=== PATIENT | female | born 1940 | race Caucasian/White ===

== ENCOUNTER 2017-07-22 15:31 | Inpatient (IN) ==
[2017-07-22] MEDS ORDERED: Dextrose Gel 15 GM/37.5 ML TUBE PO PRN ×2 (20:10)
[2017-07-22] MEDS ORDERED: *HR* Dextrose 50 % in Water (Syg) 50 ML SYRINGE IVP PRN (20:10)
[2017-07-22] MEDS ORDERED: D5% in Water 1,000 ML IVC PRN (20:10)
[2017-07-22] MEDS ORDERED: Insulin LISPRO 300 UNITS/3 ML VIAL SQ SCH (20:15)
[2017-07-22] MEDS ORDERED: Naloxone 0.4 MG/ML INJ IVP PRN (20:15)
--- NOTE | 2017-07-22 20:23 | Internal Med History&Physical ---
Date of Encounter: 07/22/17 Time of Encounter: 20:23 Internal Medicine - H&P: HPI Chief complaint: Transfer from [facility] - reportedly LE swelling / CHF ?? History of present illness: Ms. Godwin is a 77 year old female who was a transfer from [facility] with no accompanying paperwork. It was reported that the indication of transfer was for lower extremity swelling consent for CHF. However on interview with patient at bedside, this appeared to be a misdiagnosis. As far as I can appreciate, the patient is a poor historian and perhaps slightly confused. I suspect that she was previously at home with family but had been in a halfway for an unknown period of time. It appears that she likely has a history of diabetes with peripheral neuropathy on examination. She is currently comfortable with stable vitals on 3 L oxygen. It was reported that she has Ckd with prior labs demonstrating mild proteinuria. It also appeared that Dr. Tidwell is her court deputy who have been contacted prior to the transfer. On my assessment at bedside it appears that her main medical issue relates to her bilateral foot infection with cellulitis and fluid filled bullae changes most prominently along her left lower extremity. She also have patchy superficial ulceration with slough. She appears to have a chronic lower extremity edema likely secondary to proteinuria, venous stasis changes and perhaps diabetic foot. On examination she does have a left medial linear scar down her left lower extremity- she is unable to tell me what surgery she had. Due to her poor hx, I am unable to fully confirm her comorbid medical illness, reconcile home medicines at this time of admission. I do not have imaging or laboratory values to refer to as paperwork from [facility] was not available to review at present Past Med Surg Social Fam HX - Past Medical History Medical history: CHF, diabetes, renal disease Additional medical history: blood clots but unsure where - Social History Smoking Status: Never smoker - Family History Father History Unknown: Yes All Systems PM: A 10-system review of systems was performed and is negative for pertinent findings except as documented above in the HPI. Review of systems: ROS 14 point review of systems reviewed as best as possible given presentation. Pertinent positive or negative as per HPI or otherwise reviewed as negative - Constitutional Vitals: Temp Pulse Resp BP Pulse Ox 97.5 F L 91 14 94/39 97 07/22/17 18:39 07/22/17 18:39 07/22/17 18:39 07/22/17 18:39 07/22/17 18:39 Exam: General - AAO x 3 Psych - Appropriate affect/speech. No agitation Eyes - DOMENICA. Eye lids intact. No scleral icterus Neuro - No gross peripheral or central neuro deficits on inspection Heart - Sinus. RRR. S1 and S2 present. No added HS/murmurs appreciated. No elevated JVD appreciated. Lung - Adequate air entry b/l, No crackles/wheezes appreciated GI - Soft, non-tender. No hepatosplenomegaly/ascites. BS+ - No CVA/suprapubic tenderness or palpable bladder distension Skin - +2 bilateral lower extremity edema, erythema consistent with cellulitis, left foot with fluid-filled bullae changes, patchy ulceration with yellow base , peripheral neuropathy and bilateral foot with A sensation, linear scar along the left medial aspect of the left leg - Assessment and plan (1) Leg swelling Current Visit: Yes Status: Acute Assessment and plan: Discussed the case with Dr. Bolden of surgery will evaluate patient in the morning Suspect swelling to be multifactorial relating to proteinuria, venous stasis, lower extremity swelling from CKD. We would check ABIs to rule out concomitant vascular insufficiency Wound care Elevation of leg Possible Manolo bandage in the morning after evaluation by consultants and medical staff (2) Cellulitis Current Visit: Yes Status: Acute Assessment and plan: We will start empiric IV clindamycin to cover for staph and strep Monitor closely on IV therapy Qualifiers: Site of cellulitis of extremity: lower extremity Laterality: left Qualified Code(s): L03.116 - Cellulitis of left lower limb (3) DMII (diabetes mellitus, type 2) Current Visit: Yes Status: Acute Assessment and plan: Check A1c Insulin sliding scale for now Qualifiers: Qualified Code(s): E11.9 - Type 2 diabetes mellitus without complications (4) CKD (chronic kidney disease) Current Visit: Yes Status: Acute Assessment and plan: Consult Dr. Tidwell for medication optimalization Qualifiers: Chronic kidney disease stage: stage 3 (moderate) Qualified Code(s): N18.3 - Chronic kidney disease, stage 3 (moderate) - Time Spent With Patient Total time spent is greater than 50% in coordination of care (as documented) at patient's floor/unit and/or counseling patient:
[2017-07-22] MEDS: Clindamycin 300 MG in D5% in Water 50 ML IVPB SCH (21:05)
[2017-07-22 21:27] LABS: Basophils % 0.3 %; Eosinophils # 0.2 K/mcL (0.0-0.6); Eosinophils % 2.3 %; Hematocrit 37.7 % (35.3-44.9); Hemoglobin 11.3 g/dL (11.5-15.4); Immature Granulocytes % 0.6 % (0-4); Lymphocytes # 1.2 K/mcL (0.6-4.6); Mean Corpuscular Hemoglobin 29.8 pg (28.0-33.3); Mean Corpuscular Volume 99.5 fL (83.0-100.0); Mean Platelet Volume 13.5 fL (9.4-12.4); Monocytes # 0.5 K/mcL (0.0-1.3); Monocytes % 6.8 %; Neutrophils # 5.1 K/mcL (1.6-8.9); Platelet Count 123 K/mcL (140-400); Red Blood Count 3.79 M/mcL (3.82-4.97); Red Cell Distribution Width 15.5 % (11.5-14.5)
[2017-07-22 21:51] LABS: Albumin 2.8 g/dL (3.5-5.7); Albumin/Globulin Ratio 1.2 (1.1-2.2); Bilirubin,Total 0.4 mg/dL (0.3-1.0); Globulin 2.4 g/dL (2.4-3.5); Potassium 5.5 mEq/L (3.5-5.1); Total Protein 5.2 g/dL (6.4-8.9)
[2017-07-22] MEDS ORDERED: Haloperidol Lactate 5 MG/ML VIAL IM ONE (23:30)
[2017-07-22] MEDS: Insulin LISPRO 300 UNITS/3 ML VIAL SQ SCH (23:48)
[2017-07-23 05:33] LABS: Basophils % 0.2 %; Eosinophils # 0.1 K/mcL (0.0-0.6); Hematocrit 35.7 % (35.3-44.9); Hemoglobin 10.5 g/dL (11.5-15.4); Immature Granulocytes % 0.5 % (0-4); Lymphocytes # 1.1 K/mcL (0.6-4.6); Lymphocytes % 18.8 %; Mean Corpuscular HGB Conc 29.4 g/dL (31.6-35.5); Mean Corpuscular Hemoglobin 29.5 pg (28.0-33.3); Mean Corpuscular Volume 100.3 fL (83.0-100.0); Mean Platelet Volume 12.7 fL (9.4-12.4); Monocytes # 0.4 K/mcL (0.0-1.3); Monocytes % 6.9 %; Neutrophils # 4.3 K/mcL (1.6-8.9); Nucleated Red Blood Cells 0.3 /100 WBC (0); Platelet Count 126 K/mcL (140-400); Red Blood Count 3.56 M/mcL (3.82-4.97); Red Cell Distribution Width 15.3 % (11.5-14.5); Segmented Neutrophils % 71.6 %
[2017-07-23 05:46] LABS: Albumin 2.8 g/dL (3.5-5.7); Albumin/Globulin Ratio 1.2 (1.1-2.2); Bilirubin,Direct 0.1 mg/dL (0.0-0.2); Bilirubin,Indirect 0.3 mg/dL (0.0-1.2); Bilirubin,Total 0.4 mg/dL (0.3-1.0); Globulin 2.3 g/dL (2.4-3.5); Magnesium 2.3 mg/dL (1.6-2.6); Potassium 5.1 mEq/L (3.5-5.1); Total Protein 5.1 g/dL (6.4-8.9)
[2017-07-23] MEDS ORDERED: *HR* Enoxaparin 30 MG/0.3 ML SYRINGE SQ SCH (06:00)
[2017-07-23 08:26] LABS: Estimated Average Glucose 217 mg/dl; Hemoglobin A1C 9.2 %
[2017-07-23] MEDS: Insulin LISPRO 300 UNITS/3 ML VIAL SQ SCH ×4 (09:23→23:02)
[2017-07-23] MEDS: Clindamycin 300 MG in D5% in Water 50 ML IVPB SCH ×2 (09:23→18:49)
--- NOTE | 2017-07-23 09:27 | General Surgery Consult Note ---
<Wero Unger - Last Filed: 07/23/17 13:09> Date of Encounter: 07/23/17 Time of Encounter: 06:35 Assessment and Plan (1) Chronic venous stasis dermatitis Current Visit: Yes Status: Acute Patient demonstrates bullous lesions secondary to chronic venous stasis and profound morbid obesity. - Elevate legs above heart level. - Bilateral MANOLO wraps with curlex. (2) Cellulitis Current Visit: Yes Status: Acute Cellulitis of LE b/l. - On clindamycin. Qualifiers: Site of cellulitis of extremity: lower extremity Laterality: left Qualified Code(s): L03.116 - Cellulitis of left lower limb (3) CKD (chronic kidney disease) Current Visit: Yes Status: Acute Creatinine currently at 1.29 (baseline 1.03-1.22). - On IVF. Qualifiers: Chronic kidney disease stage: stage 3 (moderate) Qualified Code(s): N18.3 - Chronic kidney disease, stage 3 (moderate) (4) DMII (diabetes mellitus, type 2) Current Visit: Yes Status: Acute HA1c of 9.2. - On insulin sliding scale. - Qualifiers: Diabetes mellitus director long term care insulin use: unspecified director long term care insulin use status Diabetes mellitus complication status: with unspecified complications Qualified Code(s): E11.8 - Type 2 diabetes mellitus with unspecified complications History of Present Illness Consult date: 07/23/17 Requesting physician: Tori Garner History of present illness: Patient is a 77 Y F with a PMH of DM, HTN, CAD s/p AICD, CABG, gout, OA, and morbid obesity that presents for b/l LE swelling and cellulitis. Patient was transferred from [facility]. She is a poor historian according according to the primary team. When I tried to speak to hear earlier today, patient refused to wake up and continued sleeping. She is resting comfortably with an O2 staturation of 95% on 2 L nasal cannula. It appears that Dr. Tidwell is her hide cleaner. Past Med Surg Social Fam HX - Past Medical History Medical history: CHF, diabetes, renal disease Additional medical history: blood clots but unsure where - Social History Smoking Status: Never smoker - Family History Father History Unknown: Yes Medications and Allergies Apixaban [Eliquis] 2.5 mg PO BID 07/23/17 [History] Ascorbate Calcium [Vitamin C] 500 mg PO DAILY 07/23/17 [History] Aspirin Enteric Coated [Aspirin EC] 81 mg PO DAILY 07/23/17 [History] Carbidopa/Levodopa [Carbidopa-Levo 25-100 mg Odt] 1 tab PO QID 07/23/17 [History ] Furosemide [Lasix] 40 mg PO BID 07/23/17 [History] Insulin ASPART [Novolog] 2 - 15 unit SQ TIDWM 07/23/17 [History] Insulin Glargine,Hum.rec.anlog [Lantus Solostar] 45 unit SQ HS 07/23/17 [History ] Ipratropium/Albuterol Neb [Duoneb] 3 ml IH Q6HR PRN 07/23/17 [History] Levothyroxine [Synthroid] 112 mcg PO 0630 07/23/17 [History] Lovastatin 40 mg PO BID 07/23/17 [History] Metoprolol [Lopressor] 25 mg PO BID 07/23/17 [History] Polyethylene Glycol 3350 [MiraLAX] 17 gm PO DAILY 07/23/17 [History] Polyvinyl Alcohol [Artificial Tears] 2 drop OP BID PRN 07/23/17 [History] Potassium Chloride [K-Tab ER] 10 meq PO DAILY 07/23/17 [History] 3 Allergy/AdvReac Type Severity Reaction Status Date / Time No Known Allergies Allergy Verified 07/23/17 00:19 Review of Systems ROS unobtainable: other (Patient refused to wake up; poor historian. ) All systems PM: The remainder of the systems were reviewed and are negative General Surgery Exam Initial Vital Signs Temp Pulse Resp BP Pulse Ox 97.5 F L 91 14 94/39 97 07/22/17 18:39 07/22/17 18:39 07/22/17 18:39 07/22/17 18:39 07/22/17 18:39 - General physical appearance no distress, obese - Respiratory normal expansion, normal respiratory effort, clear to percussion, clear to auscultation - Cardiovascular Cardiovascular exam: Present: RRR, 15, 16 - Expanded Cardiovascular Exam Peripheral pulses: 1+: Posterior Tibialis (L), Posterior Tibialis (R), Dorsalis Pedis (L) PM, Dorsalis Pedis (R) PM, 2+: Radial (L), Radial (R) - Abdomen Abdomen general surgery: Present: bowel sounds present, soft, non tender. Absent: guarding, rebound - Psychiatric Psychiatric general surgery: Present: other (Somnolent. ) - Additional Findings Extremity: Patient has a 3" x 2" bullous lesion of the LLE with, +2 B/L pitting edema of the LE, erythema of LE b/l. Exam Initial Vital Signs Temp Pulse Resp BP Pulse Ox 97.5 F L 91 14 94/39 97 07/22/17 18:39 07/22/17 18:39 07/22/17 18:39 07/22/17 18:39 07/22/17 18:39 Results - Labs 07/23/17 05:09 07/23/17 05:09 Abnormal lab results RBC 3.56 M/mcL (3.82-4.97) L 07/23/17 05:09 Hgb 10.5 g/dL (11.5-15.4) L 07/23/17 05:09 MCV 100.3 fL (83.0-100.0) H 07/23/17 05:09 MCHC 29.4 g/dL (31.6-35.5) L 07/23/17 05:09 RDW 15.3 % (11.5-14.5) H 07/23/17 05:09 Plt Count 126 K/mcL (140-400) L 07/23/17 05:09 MPV 12.7 fL (9.4-12.4) H 07/23/17 05:09 Nucleated RBCs/100 WBC 0.3 /100 WBC (0) H 07/23/17 05:09 Carbon Dioxide 35 mEq/L (23-29) H 07/23/17 05:09 BUN 124 mg/dL (8-23) H 07/23/17 05:09 Creatinine 1.29 mg/dL (0.60-1.20) H 07/23/17 05:09 Est GFR ( Amer) 49 (> 60) L 07/23/17 05:09 Est GFR (Non-Af Amer) 40 (> 60) L 07/23/17 05:09 BUN/Creatinine Ratio 96 (6-26) H 07/23/17 05:09 Glucose 193 mg/dL (70-105) H 07/23/17 05:09 Hemoglobin A1c 9.2 % (-5.6) H 07/23/17 05:09 Calculated Osmolality 345 (280-300) H 07/23/17 05:09 AST 59 Units/L (13-39) H 07/23/17 05:09 Alkaline Phosphatase 443 Units/L (34-104) H 07/23/17 05:09 Serum Total Protein 5.1 g/dL (6.4-8.9) L 07/23/17 05:09 Albumin 2.8 g/dL (3.5-5.7) L 07/23/17 05:09 Globulin 2.3 g/dL (2.4-3.5) L 07/23/17 05:09 Diabetes panel 07/22/17 07/23/17 07/23/17 Range/Units 21:02 05:09 05:09 Sodium 146 H 145 (136-145) mEq/L Potassium 5.5 H 5.1 (3.5-5.1) mEq/L Chloride 108 H 106 (98-107) mEq/L Carbon Dioxide 33 H 35 H (23-29) mEq/L BUN 128 H 124 H (8-23) mg/dL Creatinine 1.39 H 1.29 H (0.60-1.20) mg/dL Glucose 232 H 193 H (70-105) mg/dL Hemoglobin A1c 9.2 H ( - 5.6) % Calcium 9.0 9.0 (8.6-10.3) mg/dL AST 78 H 59 H (13-39) Units/L ALT 18 20 (7-52) Units/L Alkaline Phosphatase 469 H 443 H (34-104) Units/L Albumin 2.8 L 2.8 L (3.5-5.7) g/dL Calcium panel 07/22/17 07/23/17 Range/Units 21:02 05:09 Calcium 9.0 9.0 (8.6-10.3) mg/dL Albumin 2.8 L 2.8 L (3.5-5.7) g/dL Pituitary panel 07/22/17 07/23/17 Range/Units 21:02 05:09 Sodium 146 H 145 (136-145) mEq/L Potassium 5.5 H 5.1 (3.5-5.1) mEq/L Chloride 108 H 106 (98-107) mEq/L Carbon Dioxide 33 H 35 H (23-29) mEq/L BUN 128 H 124 H (8-23) mg/dL Creatinine 1.39 H 1.29 H (0.60-1.20) mg/dL Glucose 232 H 193 H (70-105) mg/dL Calcium 9.0 9.0 (8.6-10.3) mg/dL Adrenal panel 07/22/17 07/23/17 Range/Units 21:02 05:09 Sodium 146 H 145 (136-145) mEq/L Potassium 5.5 H 5.1 (3.5-5.1) mEq/L Chloride 108 H 106 (98-107) mEq/L Carbon Dioxide 33 H 35 H (23-29) mEq/L BUN 128 H 124 H (8-23) mg/dL Creatinine 1.39 H 1.29 H (0.60-1.20) mg/dL Glucose 232 H 193 H (70-105) mg/dL Calcium 9.0 9.0 (8.6-10.3) mg/dL Total Bilirubin 0.4 0.4 (0.3-1.0) mg/dL AST 78 H 59 H (13-39) Units/L ALT 18 20 (7-52) Units/L Alkaline Phosphatase 469 H 443 H (34-104) Units/L Albumin 2.8 L 2.8 L (3.5-5.7) g/dL All other labs normal. Consult Discharge Plan - Plan Referrals: Yaa Sanderson, SMELTER LINER [Primary Care Provider] - <Jacky Bolden - Last Filed: 07/23/17 14:08> Date of Encounter: 07/23/17 Review of Systems All systems PM: The remainder of the systems were reviewed and are negative General Surgery Exam Initial Vital Signs Temp Pulse Resp BP Pulse Ox 97.5 F L 91 14 94/39 97 07/22/17 18:39 07/22/17 18:39 07/22/17 18:39 07/22/17 18:39 07/22/17 18:39 Exam Initial Vital Signs Temp Pulse Resp BP Pulse Ox 97.5 F L 91 14 94/39 97 07/22/17 18:39 07/22/17 18:39 07/22/17 18:39 07/22/17 18:39 07/22/17 18:39 Results - Labs 07/23/17 05:09 07/23/17 05:09 Abnormal lab results RBC 3.56 M/mcL (3.82-4.97) L 07/23/17 05:09 Hgb 10.5 g/dL (11.5-15.4) L 07/23/17 05:09 MCV 100.3 fL (83.0-100.0) H 07/23/17 05:09 MCHC 29.4 g/dL (31.6-35.5) L 07/23/17 05:09 RDW 15.3 % (11.5-14.5) H 07/23/17 05:09 Plt Count 126 K/mcL (140-400) L 07/23/17 05:09 MPV 12.7 fL (9.4-12.4) H 07/23/17 05:09 Nucleated RBCs/100 WBC 0.3 /100 WBC (0) H 07/23/17 05:09 Carbon Dioxide 35 mEq/L (23-29) H 07/23/17 05:09 BUN 124 mg/dL (8-23) H 07/23/17 05:09 Creatinine 1.29 mg/dL (0.60-1.20) H 07/23/17 05:09 Est GFR ( Amer) 49 (> 60) L 07/23/17 05:09 Est GFR (Non-Af Amer) 40 (> 60) L 07/23/17 05:09 BUN/Creatinine Ratio 96 (6-26) H 07/23/17 05:09 Glucose 193 mg/dL (70-105) H 07/23/17 05:09 Hemoglobin A1c 9.2 % (-5.6) H 07/23/17 05:09 Calculated Osmolality 345 (280-300) H 07/23/17 05:09 AST 59 Units/L (13-39) H 07/23/17 05:09 Alkaline Phosphatase 443 Units/L (34-104) H 07/23/17 05:09 Serum Total Protein 5.1 g/dL (6.4-8.9) L 07/23/17 05:09 Albumin 2.8 g/dL (3.5-5.7) L 07/23/17 05:09 Globulin 2.3 g/dL (2.4-3.5) L 07/23/17 05:09 Diabetes panel 07/22/17 07/23/17 07/23/17 Range/Units 21:02 05:09 05:09 Sodium 146 H 145 (136-145) mEq/L Potassium 5.5 H 5.1 (3.5-5.1) mEq/L Chloride 108 H 106 (98-107) mEq/L Carbon Dioxide 33 H 35 H (23-29) mEq/L BUN 128 H 124 H (8-23) mg/dL Creatinine 1.39 H 1.29 H (0.60-1.20) mg/dL Glucose 232 H 193 H (70-105) mg/dL Hemoglobin A1c 9.2 H ( - 5.6) % Calcium 9.0 9.0 (8.6-10.3) mg/dL AST 78 H 59 H (13-39) Units/L ALT 18 20 (7-52) Units/L Alkaline Phosphatase 469 H 443 H (34-104) Units/L Albumin 2.8 L 2.8 L (3.5-5.7) g/dL Calcium panel 07/22/17 07/23/17 Range/Units 21:02 05:09 Calcium 9.0 9.0 (8.6-10.3) mg/dL Albumin 2.8 L 2.8 L (3.5-5.7) g/dL Pituitary panel 07/22/17 07/23/17 Range/Units 21:02 05:09 Sodium 146 H 145 (136-145) mEq/L Potassium 5.5 H 5.1 (3.5-5.1) mEq/L Chloride 108 H 106 (98-107) mEq/L Carbon Dioxide 33 H 35 H (23-29) mEq/L BUN 128 H 124 H (8-23) mg/dL Creatinine 1.39 H 1.29 H (0.60-1.20) mg/dL Glucose 232 H 193 H (70-105) mg/dL Calcium 9.0 9.0 (8.6-10.3) mg/dL Adrenal panel 07/22/17 07/23/17 Range/Units 21:02 05:09 Sodium 146 H 145 (136-145) mEq/L Potassium 5.5 H 5.1 (3.5-5.1) mEq/L Chloride 108 H 106 (98-107) mEq/L Carbon Dioxide 33 H 35 H (23-29) mEq/L BUN 128 H 124 H (8-23) mg/dL Creatinine 1.39 H 1.29 H (0.60-1.20) mg/dL Glucose 232 H 193 H (70-105) mg/dL Calcium 9.0 9.0 (8.6-10.3) mg/dL Total Bilirubin 0.4 0.4 (0.3-1.0) mg/dL AST 78 H 59 H (13-39) Units/L ALT 18 20 (7-52) Units/L Alkaline Phosphatase 469 H 443 H (34-104) Units/L Albumin 2.8 L 2.8 L (3.5-5.7) g/dL All other labs normal. - Attending Attestation I examined this patient and my medical decision-making was reviewed with the Resident Physician. I agree with the documented findings, disposition and treatment plan as described except to the extent set forth below. The patient is seen and evaluated with resident. She has profound morbid obesity and chronic venous hypertension resulting in hemosiderin deposition and dermatosclerosis and both lower extremities. This is also cause the bullous changes on her left lower extremity. She will respond to leg elevation and compression therapy. We will start with Manolo wraps on both lower extremities and aggressive leg elevation. I would like to transition to Unna boots with extrinsic compression in the coming days. Jacky Bolden MD FACS
--- NOTE | 2017-07-23 10:17 | Nephrology Consult Note ---
Date of Encounter: 07/23/17 Time of Encounter: 10:09 Assessment and Plan (1) CKD (chronic kidney disease) Current Visit: Yes Status: Chronic Is a patient of Dr. Finley in office for CKD 3. BUN elevated, NS ordered for gentle hydration. Scr 1.29 GFR 40, both at baseline. Qualifiers: Chronic kidney disease stage: stage 3 (moderate) Qualified Code(s): N18.3 - Chronic kidney disease, stage 3 (moderate) (2) Cellulitis Current Visit: Yes Status: Acute Per primary team. Qualifiers: Site of cellulitis: extremity Site of cellulitis of extremity: lower extremity Laterality: unspecified laterality Qualified Code(s): L03.119 - Cellulitis of unspecified part of limb (3) Chronic venous stasis dermatitis Current Visit: Yes Status: Chronic Per primary/surgery team. (4) DMII (diabetes mellitus, type 2) Current Visit: Yes Status: Chronic Per primary team. Qualifiers: Diabetes mellitus group home insulin use: with intermodal dispatcher use Diabetes mellitus complication status: with kidney complications Diabetes mellitus complication detail: with chronic kidney disease Chronic kidney disease stage : stage 3 (moderate) Qualified Code(s): E11.22 - Type 2 diabetes mellitus with diabetic chronic kidney disease; N18.3 - Chronic kidney disease, stage 3 ( moderate); Z79.4 - residential (current) use of insulin History of Present Illness - Reason for Consult Consult date: 07/23/17 Acute Kidney Injury - Chief Complaint CHF - History of Present Illness Ms Godwin is a 77 year old female that was transferred from another facility apparently without paperwork for CHF exacerbation. Unsure if she was having difficulty in breathing or fluid overload? Other PMH: of DM, HTN, CAD s/ p AICD, CABG, gout, OA, morbid obesity. Upon examination there is no shortness of breath. Noted are large bullous wounds to lower extremities which surgery has been consulted for. Patient appears very confused, and is poor historian. Per nursing staff she was very agitated last night and did receive a dose of IV Haldol. Patient is known to Dr. Finley as she is seen for CKD 3. BUN is extremely elevated at 128, which is new for her. GFR and Scr appear at baseline. ROS and past history unable to obtain due to mentation and were collected from old records. No obvious signs of bleeding or chronic steroid use which could contribute to elevated BUN. Pt does not appear dehydrated with examination. Past Med Surg Social Fam HX - Past Medical History Medical history: CHF, diabetes, renal disease Additional medical history: blood clots but unsure where - Social History Smoking Status: Never smoker - Family History Father History Unknown: Yes Medications and Allergies Apixaban [Eliquis] 2.5 mg PO BID 07/23/17 [History] Ascorbate Calcium [Vitamin C] 500 mg PO DAILY 07/23/17 [History] Aspirin Enteric Coated [Aspirin EC] 81 mg PO DAILY 07/23/17 [History] Carbidopa/Levodopa [Carbidopa-Levo 25-100 mg Odt] 1 tab PO QID 07/23/17 [History ] Furosemide [Lasix] 40 mg PO BID 07/23/17 [History] Insulin ASPART [Novolog] 2 - 15 unit SQ TIDWM 07/23/17 [History] Insulin Glargine,Hum.rec.anlog [Lantus Solostar] 45 unit SQ HS 07/23/17 [History ] Ipratropium/Albuterol Neb [Duoneb] 3 ml IH Q6HR PRN 07/23/17 [History] Levothyroxine [Synthroid] 112 mcg PO 0630 07/23/17 [History] Lovastatin 40 mg PO BID 07/23/17 [History] Metoprolol [Lopressor] 25 mg PO BID 07/23/17 [History] Polyethylene Glycol 3350 [MiraLAX] 17 gm PO DAILY 07/23/17 [History] Polyvinyl Alcohol [Artificial Tears] 2 drop OP BID PRN 07/23/17 [History] Potassium Chloride [K-Tab ER] 10 meq PO DAILY 07/23/17 [History] 3 Allergy/AdvReac Type Severity Reaction Status Date / Time No Known Allergies Allergy Verified 07/23/17 00:19 Review of Systems ROS unobtainable: due to mental status Exam - Vital Signs Vital signs: Initial Vital Signs Temp Pulse Resp BP Pulse Ox 97.5 F L 91 14 94/39 97 07/22/17 18:39 07/22/17 18:39 07/22/17 18:39 07/22/17 18:39 07/22/17 18:39 Vital Signs - Last 8 Hours Temp Pulse Resp BP Pulse Ox 07/23/17 07:27 97.6 F 94 17 105/50 99 07/23/17 04:37 97.6 F 88 15 135/83 95 Intake and Output 07/22/17 07/23/17 07/23/17 23:59 07:59 15:59 Intake Total 312 / 312 Output Total 1300 / 1300 Balance 312 / 312 -1300 / -1300 Intake: IV Fluids Cleocin 300 MG In Dextrose 5% 50 ML @ 50 mls/hr IVPB Q8HR [facility] Rx#:[id number] Oral Other 250 / 250 Output: Catheter 1300 / 1300 Other: Weight 133.9 kg 134.3 kg Blood Glucose* 240 181 Patient Weight 07/23/17 23:59 Weight 134.3 kg - General Appearance General appearance: obese, frail EENT: ATNC, hearing intact, vision intact Neck: supple Cardiology: edema (Trace BLE), normal S1, normal S2 Gastrointestinal: normoactive bowel sounds, no tenderness, no guarding Integumentary: erythema (Bilat lower extremities large fluid filled blisters noted.) Neurologic: confused, disoriented Results - Lab Results 07/23/17 05:09 07/23/17 05:09 Most recent lab results Calcium 9.0 mg/dL (8.6-10.3) 07/23/17 05:09 Magnesium 2.3 mg/dL (1.6-2.6) 07/23/17 05:09 Consult Discharge Plan - Plan Referrals: Yaa Sanderson, SUPERVISOR EVAPORATOR [Primary Care Provider] -
[2017-07-23] MEDS ORDERED: 0.9 % Sodium Chloride 1,000 ML IVC SCH (10:30)
[2017-07-23] MEDS ORDERED: Perflutren Lipid Microsphere 1.3 ML in 0.9 % Sodium Chloride 8.7 ML IVP ONE (12:35)
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
[2017-07-23] MEDS ORDERED: Ipratropium/Albuterol Neb 3 ML IH PRN (14:59)
[2017-07-23] MEDS: Carbidopa/Levodopa 25/100 TABLET PO SCH ×2 (17:47→23:04)
[2017-07-23] MEDS: Apixaban 2.5 MG TABLET PO SCH (23:04)
[2017-07-24] MEDS: Clindamycin 300 MG in D5% in Water 50 ML IVPB SCH (01:27)
[2017-07-24 05:59] LABS: Basophils % 0.4 %; Red Cell Distribution Width 15.4 % (11.5-14.5)
[2017-07-24] MEDS ORDERED: *HR* Enoxaparin 40 MG/0.4 ML SYRINGE SQ SCH (06:00)
[2017-07-24 06:01] LABS: Eosinophils # 0.1 K/mcL (0.0-0.6); Eosinophils % 1.4 %; Hematocrit 36.5 % (35.3-44.9); Hemoglobin 10.9 g/dL (11.5-15.4); Immature Granulocytes % 0.6 % (0-4); Lymphocytes # 1.3 K/mcL (0.6-4.6); Lymphocytes % 17.2 %; Mean Corpuscular HGB Conc 29.9 g/dL (31.6-35.5); Mean Corpuscular Hemoglobin 29.9 pg (28.0-33.3); Mean Corpuscular Volume 100.3 fL (83.0-100.0); Mean Platelet Volume 12.9 fL (9.4-12.4); Monocytes # 0.6 K/mcL (0.0-1.3); Monocytes % 7.6 %; Neutrophils # 5.7 K/mcL (1.6-8.9); Platelet Count 129 K/mcL (140-400); Red Blood Count 3.64 M/mcL (3.82-4.97); Segmented Neutrophils % 72.8 %
[2017-07-24 06:44] LABS: Hypochromasia Present (Not Present); Platelet Estimate Slight Decrease (Normal)
[2017-07-24 07:14] LABS: Albumin 3.1 g/dL (3.5-5.7); Albumin/Globulin Ratio 1.5 (1.1-2.2); Bilirubin,Direct 0.2 mg/dL (0.0-0.2); Bilirubin,Indirect 0.3 mg/dL (0.0-1.2); Bilirubin,Total 0.5 mg/dL (0.3-1.0); Calcium 8.7 mg/dL (8.6-10.3); Globulin 2.1 g/dL (2.4-3.5); Magnesium 2.3 mg/dL (1.6-2.6); Potassium 5.1 mEq/L (3.5-5.1); Total Protein 5.2 g/dL (6.4-8.9)
--- NOTE | 2017-07-24 09:31 | General Surgery Progress Note ---
<Wero Unger - Last Filed: 07/24/17 09:26> Date of Encounter: 07/24/17 Time of Encounter: 06:20 - Assessment and Plan (1) Chronic venous stasis dermatitis Current Visit: Yes Status: Chronic Patient demonstrates bullous lesions secondary to chronic venous stasis and profound morbid obesity. - Elevate legs above heart level. - Bilateral DEAN wraps with curlex. - Consult to Wound Care: left message for Esperanza Vernon instructing to put on unna boots with external compression. Surgery will sign off on this patient. She is to have a follow-up visit at the wound care clinic on 07/27/[address] Bolden. (2) Cellulitis Current Visit: Yes Status: Acute Cellulitis of LE b/l. - On day #3 clindamycin. Qualifiers: Site of cellulitis: extremity Site of cellulitis of extremity: lower extremity Laterality: unspecified laterality Qualified Code(s): L03.119 - Cellulitis of unspecified part of limb (3) CKD (chronic kidney disease) Current Visit: Yes Status: Chronic Creatinine currently at 1.53, yesterday at 1.29 (baseline 1.03-1.22). - On IVF. Qualifiers: Chronic kidney disease stage: stage 3 (moderate) Qualified Code(s): N18.3 - Chronic kidney disease, stage 3 (moderate) (4) DMII (diabetes mellitus, type 2) Current Visit: Yes Status: Chronic HA1c of 9.2. - On insulin sliding scale. - Qualifiers: Diabetes mellitus emt intermediate insulin use: with emt intermediate use Diabetes mellitus complication status: with kidney complications Diabetes mellitus complication detail: with chronic kidney disease Chronic kidney disease stage : stage 3 (moderate) Qualified Code(s): E11.22 - Type 2 diabetes mellitus with diabetic chronic kidney disease; N18.3 - Chronic kidney disease, stage 3 ( moderate); Z79.4 - retirement (current) use of insulin Subjective Narrative: Patient says that her SOB has improved since yesterday. She denies any chest pain. She denies any pain in her legs. Denies any overnight fever. Objective VITAL SIGNS: Reviewed. See [facility] GENERAL: no apparent distress. HEENT: [Normocephalic, PER, EOMI, oropharynx pink/moist, no JVD noted.] CV: b/l rad pulses 2+, RRR, no murmurs or gallops, no JVD RESPIRATORY: CTAB without wheezes, rales, or rhonchi ABD: soft, non-tender, no rebound/guarding/rigidity, no peritoneal signs. Normal bowel sounds. EXTREMITY: grossly normal motor function, no pedal edema. Legs bandaged in dean wraps bilaterally. Normal capillary refill of LE b/l. NEUROLOGIC EXAM: AOx3, obeys commands, no speech deficits. PSYCHIATRIC: normal mood and affect SKIN: no gross lesions, rashes, or skin changes Vital Signs - Last 8 Hours Temp Pulse Resp BP Pulse Ox 07/24/17 04:12 97.5 F L 73 20 107/75 96 Intake and Output 07/23/17 07/24/17 07/24/17 23:59 07:59 15:59 Intake Total 1112 / 1112 0 / 0 Output Total 550 / 550 850 / 850 Balance 562 / 562 -850 / -850 Intake: IV Fluids / 52 Cleocin 300 MG In Dextrose 5% / 50 ML @ 50 mls/hr IVPB Q8HR [facility] Rx#:[id number] Oral 1060 / 1060 0 / 0 Output: Catheter 550 / 550 850 / 850 Urethral (Ellis) 300 / 300 Other: Meal Dinner Percent of Meal Consumed 50% Weight 136 kg Blood Glucose* 261 195 Patient Weight 07/24/17 23:59 Weight 136 kg - Labs 07/24/17 05:45 07/24/17 06:39 Diabetes panel 07/24/17 Range/Units 06:39 Sodium 141 (136-145) mEq/L Potassium 5.1 (3.5-5.1) mEq/L Chloride 102 (98-107) mEq/L Carbon Dioxide 32 H (23-29) mEq/L BUN 115 H (8-23) mg/dL Creatinine 1.53 H (0.60-1.20) mg/dL Glucose 201 H (70-105) mg/dL Calcium 8.7 (8.6-10.3) mg/dL AST 63 H (13-39) Units/L ALT 12 (7-52) Units/L Alkaline Phosphatase 510 H (34-104) Units/L Albumin 3.1 L (3.5-5.7) g/dL Calcium panel 07/24/17 Range/Units 06:39 Calcium 8.7 (8.6-10.3) mg/dL Albumin 3.1 L (3.5-5.7) g/dL Pituitary panel 07/24/17 Range/Units 06:39 Sodium 141 (136-145) mEq/L Potassium 5.1 (3.5-5.1) mEq/L Chloride 102 (98-107) mEq/L Carbon Dioxide 32 H (23-29) mEq/L BUN 115 H (8-23) mg/dL Creatinine 1.53 H (0.60-1.20) mg/dL Glucose 201 H (70-105) mg/dL Calcium 8.7 (8.6-10.3) mg/dL Adrenal panel 07/24/17 Range/Units 06:39 Sodium 141 (136-145) mEq/L Potassium 5.1 (3.5-5.1) mEq/L Chloride 102 (98-107) mEq/L Carbon Dioxide 32 H (23-29) mEq/L BUN 115 H (8-23) mg/dL Creatinine 1.53 H (0.60-1.20) mg/dL Glucose 201 H (70-105) mg/dL Calcium 8.7 (8.6-10.3) mg/dL Total Bilirubin 0.5 (0.3-1.0) mg/dL AST 63 H (13-39) Units/L ALT 12 (7-52) Units/L Alkaline Phosphatase 510 H (34-104) Units/L Albumin 3.1 L (3.5-5.7) g/dL Consult Discharge Plan - Plan Referrals: Yaa Sanderson, TANK DRIVER [Primary Care Provider] - <Jacky Bolden - Last Filed: 07/27/17 12:34> Date of Encounter: 07/27/17 Objective Vital Signs - Last 8 Hours Temp Pulse Resp BP Pulse Ox 07/27/17 12:19 120 12 93/54 07/27/17 11:48 97.5 F L 117 20 70/48 93 07/27/17 11:40 15 70/48 92 07/27/17 11:37 70/48 07/27/17 11:25 22 92 07/27/17 08:00 97.5 F L 55 18 78/56 07/27/17 07:56 93 07/27/17 06:56 97.5 F L 84 16 68/58 93 Intake and Output 07/26/17 07/27/17 07/27/17 23:59 07:59 15:59 Intake Total 490 / 490 100 / 100 240 / 240 Output Total 150 / 150 Balance 340 / 340 100 / 100 240 / 240 Intake: Oral 480 / 480 100 / 100 240 / 240 Other Output: Catheter 150 / 150 Other: Meal Breakfast Percent of Meal Consumed 75% Stool Size Moderate Small Stool Consistency soft loose soft Stool Color Brown Brown Yellow # Bowel Movements 1 # Bowel Movement Diapers 1 Blood Glucose* 233 232 294 - Labs 07/27/17 05:33 07/27/17 05:33 Diabetes panel 07/27/17 Range/Units 05:33 Sodium 140 (136-145) mEq/L Potassium 5.4 H (3.5-5.1) mEq/L Chloride 101 (98-107) mEq/L Carbon Dioxide 27 (23-29) mEq/L BUN > 130 H (8-23) mg/dL Creatinine 2.69 H (0.60-1.20) mg/dL Glucose 246 H (70-105) mg/dL Calcium 8.5 L (8.6-10.3) mg/dL Albumin 3.2 L (3.5-5.7) g/dL Calcium panel 07/27/17 Range/Units 05:33 Calcium 8.5 L (8.6-10.3) mg/dL Phosphorus 6.9 H (2.7-4.5) mg/dL Albumin 3.2 L (3.5-5.7) g/dL Pituitary panel 07/27/17 Range/Units 05:33 Sodium 140 (136-145) mEq/L Potassium 5.4 H (3.5-5.1) mEq/L Chloride 101 (98-107) mEq/L Carbon Dioxide 27 (23-29) mEq/L BUN > 130 H (8-23) mg/dL Creatinine 2.69 H (0.60-1.20) mg/dL Glucose 246 H (70-105) mg/dL Calcium 8.5 L (8.6-10.3) mg/dL Adrenal panel 07/27/17 Range/Units 05:33 Sodium 140 (136-145) mEq/L Potassium 5.4 H (3.5-5.1) mEq/L Chloride 101 (98-107) mEq/L Carbon Dioxide 27 (23-29) mEq/L BUN > 130 H (8-23) mg/dL Creatinine 2.69 H (0.60-1.20) mg/dL Glucose 246 H (70-105) mg/dL Calcium 8.5 L (8.6-10.3) mg/dL Albumin 3.2 L (3.5-5.7) g/dL - Attending Attestation I examined this patient and my medical decision-making was reviewed with the Resident Physician. I agree with the documented findings, disposition and treatment plan as described except to the extent set forth below. The patient is seen and evaluated on morning rounds with resident. The patient will require Unna boots with extrinsic compression. I will be glad to follow her as an outpatient in wound clinic. Jacky Bolden MD FACS
[2017-07-24] MEDS: Carbidopa/Levodopa 25/100 TABLET PO SCH ×4 (09:58→20:34)
[2017-07-24] MEDS: Apixaban 2.5 MG TABLET PO SCH ×2 (09:58→20:33)
[2017-07-24] MEDS: Ascorbic Acid 500 MG TABLET PO SCH (09:58)
[2017-07-24] MEDS: Insulin LISPRO 300 UNITS/3 ML VIAL SQ SCH ×4 (09:58→20:28)
[2017-07-24] MEDS: Aspirin Enteric Coated 81 MG Tablet PO SCH (09:58)
--- NOTE | 2017-07-24 13:51 | Nephrology Progress Note ---
<Maggy Bowman - Last Filed: 07/24/17 13:49> Date of Encounter: 07/24/17 Time of Encounter: 13:49 - Assessment and Plan (1) CKD (chronic kidney disease) Current Visit: Yes Status: Chronic Is a patient of Dr. Welsh in the office for CKD 3. Bun is 115 down from 128. Continue to avoid nephrotoxins and renal dose medications. No emergent need for dialysis as BUN is elevated, but Scr and GFR are at baseline. Qualifiers: Chronic kidney disease stage: stage 3 (moderate) Qualified Code(s): N18.3 - Chronic kidney disease, stage 3 (moderate) (2) Cellulitis Current Visit: Yes Status: Acute Per surgery/primary team. Qualifiers: Site of cellulitis: extremity Site of cellulitis of extremity: lower extremity Laterality: unspecified laterality Qualified Code(s): L03.119 - Cellulitis of unspecified part of limb (3) Chronic venous stasis dermatitis Current Visit: Yes Status: Chronic (4) DMII (diabetes mellitus, type 2) Current Visit: Yes Status: Chronic A1C has been as high as 13 in the past. Currently serum glucose is around 250. Per primary team. Qualifiers: Diabetes mellitus termite control service representative insulin use: with termite control service representative use Diabetes mellitus complication status: with kidney complications Diabetes mellitus complication detail: with chronic kidney disease Chronic kidney disease stage : stage 3 (moderate) Qualified Code(s): E11.22 - Type 2 diabetes mellitus with diabetic chronic kidney disease; N18.3 - Chronic kidney disease, stage 3 ( moderate); Z79.4 - termite control service representative (current) use of insulin Subjective Principal diagnosis: acute on chronic kidney disease Interval history: Pt seen and examiend. Denies CP,SOB, nausea,vomiting. Objective - Vital Signs Vital signs: Vital Signs Temp Pulse Resp BP Pulse Ox 07/24/17 09:26 98.4 F 90 20 94/55 94 07/24/17 04:12 97.5 F L 73 20 107/75 96 07/24/17 00:26 98.1 F 85 18 127/58 92 07/23/17 20:14 98.2 F 102 18 132/87 96 07/23/17 16:32 97.5 F L 99 20 136/68 96 Intake and Output 07/23/17 07/24/17 07/24/17 23:59 07:59 15:59 Intake Total 1112 / 1112 0 / 0 Output Total 550 / 550 850 / 850 Balance 562 / 562 -850 / -850 Intake: IV Fluids Cleocin 300 MG In Dextrose 5% 50 ML @ 50 mls/hr IVPB Q8HR [facility] Rx#:[id number] Oral 1060 / 1060 0 / 0 Output: Catheter 550 / 550 850 / 850 Urethral (Ellis) 300 / 300 Other: Meal Dinner Percent of Meal Consumed 50% Weight 136 kg Blood Glucose* 261 195 255 Patient Weight 07/24/17 23:59 Weight 136 kg - General Appearance General appearance: Present: obese, chronically ill, frail EENT: Present: ATNC, hearing intact, vision intact Neck: Present: supple Respiratory: Present: clear Cardiology: Present: edema (unable to assess pitting, both legs wrapped in esperanza wraps, C/D/I.), normal S1, normal S2 Gastrointestinal: Present: normoactive bowel sounds, no tenderness, no guarding Integumentary: Present: warm and dry Neurologic: Present: alert and oriented x3 Psychiatric: Present: mood/affect appropriate, cooperative - Lab 07/24/17 05:45 07/24/17 06:39 Most recent lab results Calcium 8.7 mg/dL (8.6-10.3) 07/24/17 06:39 Magnesium 2.3 mg/dL (1.6-2.6) 07/24/17 06:39 Consult Discharge Plan - Plan Referrals: Yaa Sanderson, DEPLOYMENT MANAGER [Primary Care Provider] - <Usman Adan - Last Filed: 07/25/17 10:51> Date of Encounter: 07/24/17 Objective - Vital Signs Vital signs: Vital Signs Temp Pulse Resp BP Pulse Ox 07/25/17 09:40 85 20 89/62 96 07/25/17 07:31 97.1 F L 99 20 86/68 97 07/25/17 05:02 97.7 F 96 18 107/70 98 07/24/17 20:18 98.5 F 84 18 111/60 96 07/24/17 19:00 95 07/24/17 15:33 97.6 F 83 20 122/71 95 Intake and Output 07/24/17 07/25/17 07/25/17 23:59 07:59 15:59 Intake Total 0 / 0 120 / 120 Output Total 600 / 600 150 / 150 Balance -600 / -600 -30 / -30 Intake: Oral 0 / 0 120 / 120 Output: Catheter 600 / 600 150 / 150 Other: Weight 136.6 kg Blood Glucose* 200 201 Patient Weight 07/25/17 23:59 Weight 136.6 kg - Lab 07/25/17 06:37 07/25/17 06:37 Most recent lab results Calcium 8.9 mg/dL (8.6-10.3) 07/25/17 06:37 Magnesium 2.4 mg/dL (1.6-2.6) 07/25/17 06:37 - Attending Attestation I examined this patient and my medical decision-making was reviewed with the Resident Physician. I agree with the documented findings, disposition and treatment plan as described except to the extent set forth below. Interim events noted, pt seen and examined well known to me from outpatient for CKD now seen not at baseline mental status appearing intermittently confused and disoriented. No family at bedide. LE with wrapping bilat. SCr within her range of fluctuation and BUN slightly improved. Continue off diuretics with gentle volume repletion. No acute indication for LONG HAUL TRUCK DRIVER at this time.
--- NOTE | 2017-07-24 15:34 | Internal Med Progress Note ---
Date of Encounter: 07/24/17 Time of Encounter: 10:30 - Assessment and plan (1) Leg swelling Current Visit: Yes Status: Acute Assessment and plan: Likely chronic secondary to stasis dermatitis, venous insufficiency, underlying CKD and chronic CHF. Hold home dose of Lasix due to elevated BUN, continue lower extremity elevation. Echocardiogram shows preserved ejection fraction around 55%, mild concentric LVH, indeterminate diastolic function, moderate MR, severe pulmonary hypertension, device lead in right atrium and right ventricle. Arterial study shows bilateral lower extremity moderately occlusive disease. (2) Cellulitis Current Visit: Yes Status: Acute Assessment and plan: Started on IV clindamycin. No significant cellulitis now. Leg elevation. Continue to monitor closely. Qualifiers: Site of cellulitis: extremity Site of cellulitis of extremity: lower extremity Laterality: unspecified laterality Qualified Code(s): L03.119 - Cellulitis of unspecified part of limb (3) DMII (diabetes mellitus, type 2) Current Visit: Yes Status: Chronic Assessment and plan: Blood sugars well controlled. Continue sliding scale insulin, and basal insulin. Accu-Chek blood glucose monitoring. Diabetic diet. Hemoglobin A1c noted to be 9.2%. Qualifiers: Diabetes mellitus medical terminologist insulin use: with medical terminologist use Diabetes mellitus complication status: with kidney complications Diabetes mellitus complication detail: with chronic kidney disease Chronic kidney disease stage : stage 3 (moderate) Qualified Code(s): E11.22 - Type 2 diabetes mellitus with diabetic chronic kidney disease; N18.3 - Chronic kidney disease, stage 3 ( moderate); Z79.4 - [facility] (current) use of insulin (4) CKD (chronic kidney disease) Current Visit: Yes Status: Chronic Assessment and plan: Serum creatinine slightly worse at 1.53. She follows with nephrology as outpatient. Noted to have new onset of significantly elevated BUN, somewhat improved today 115. Nephrology recommendations appreciated, will continue IV hydration with normal saline. Monitor closely. Qualifiers: Chronic kidney disease stage: stage 3 (moderate) Qualified Code(s): N18.3 - Chronic kidney disease, stage 3 (moderate) (5) Dementia Current Visit: Yes Status: Chronic Qualifiers: Dementia type: Alzheimer's disease Alzheimer's disease onset: late-onset Dementia behavioral disturbance: with behavioral disturbance Qualified Code(s) : G30.1 - Alzheimer's disease with late onset; F02.81 - Dementia in other diseases classified elsewhere with behavioral disturbance (6) Atrial fibrillation Current Visit: Yes Status: Suspected Assessment and plan: Patient is noted to be on Eliquis as outpatient, continue. continue beta jose; Continue telemetry monitoring. has PPM; Qualifiers: Atrial fibrillation type: paroxysmal Qualified Code(s): I48.0 - Paroxysmal atrial fibrillation (7) Chronic venous stasis dermatitis Current Visit: Yes Status: Chronic Assessment and plan: associated with arterial ulcers and bullae; surgery signed off, recommendations appreciated; continue wound care and outpatient wound care center f/up; (8) Hypothyroidism Current Visit: Yes Status: Chronic Qualifiers: Hypothyroidism type: unspecified Qualified Code(s): E03.9 - Hypothyroidism , unspecified - Time Spent With Patient Total time spent is greater than 50% in coordination of care (as documented) at patient's floor/unit and/or counseling patient: - Subjective Interval history: Continues to be intermittently confused and constantly screaming for things like "water, getting cleaned, wanting to get out of here, etc"; Denies chest pain, dyspnea, abdominal pain; improving leg swelling with DEAN wraps; - Constitutional Vitals: Temp Pulse Resp BP Pulse Ox 98.4 F 90 20 94/55 94 07/24/17 09:26 07/24/17 09:26 07/24/17 09:26 07/24/17 09:26 07/24/17 09:26 General appearance: Present: A&O X 1, morbidly obese. Absent: answers questions appropriately - Respiratory Respiratory exam: Present: CTAB (coarse breath sounds B/L, intermittent rhonchi) . Absent: accessory muscle use, rales, rhonchi, wheezes - Cardiovascular Cardiovascular exam: Present: RRR, +S1, +S2. Absent: diastolic murmur, gallop, rubs, systolic murmur - GI/Abdominal GI/Abdominal exam: Present: normal bowel sounds, soft (obese), no peritoneal signs. Absent: distended, tenderness - Extremities Exam Extremities exam: Present: pedal edema (stasis dermatitis and chronic pedal edema with vascular ulcers and bullae- in DEAN wraps), warm, radial pulses palpable and symmetrical. Absent: calf tenderness, cyanotic - Neurological Exam Neurological exam: Present: altered, no focal deficits. Absent: pronater drift , facial droop, speech deficit Internal Medicine: Result - Labs CBC & Chem 7: 07/24/17 05:45 07/24/17 06:39 Labs: Short CBC 07/24/17 Range/Units 05:45 WBC 7.8 (4.3-11.1) K/mcL Hgb 10.9 L (11.5-15.4) g/dL Hct 36.5 (35.3-44.9) % Plt Count 129 L (140-400) K/mcL Neutrophils # 5.7 (1.6-8.9) K/mcL BMP 07/24/17 06:39 Sodium 141 Potassium 5.1 Chloride 102 Carbon Dioxide 32 H BUN 115 H Creatinine 1.53 H Glucose 201 H Calcium 8.7 Liver Function 07/24/17 Range/Units 06:39 Total Bilirubin 0.5 (0.3-1.0) mg/dL Direct Bilirubin 0.2 (0.0-0.2) mg/dL AST 63 H (13-39) Units/L ALT 12 (7-52) Units/L Alkaline Phosphatase 510 H (34-104) Units/L Albumin 3.1 L (3.5-5.7) g/dL - Impressions Impressions Echocardiogram 07/23/17 10:03 Impressions: LVEF 55%. Not all LV segments were well visualized. Overall, LVEF appeared grossly normal. Mild concentric left ventricular hypertrophy. Indeterminate diastolic function. Mildly dilated right ventricle with normal function. Moderate mitral regurgitation. Mild-moderate tricuspid regurgitation. Severe pulmonary hypertension. Estimated RVSP is 73-83 mmHg. A device lead was visualized in the right atrium and right ventricle. Findings: Study Quality * Technically sub-optimal due to poor echocardiographic windows. ECG Findings * Atrial fibrillation. Left Ventricle * LVEF 55%. * Not all LV segments were well visualized. Overall, LVEF appeared grossly normal. * Mild concentric left ventricular hypertrophy. * Indeterminate diastolic function. Right Ventricle * Mildly dilated right ventricle with normal function. Left Atrium * Moderately dilated left atrium. Right Atrium * Mildly dilated right atrium. Aortic Valve * Aortic valve not well visualized. * Grossly, mildly sclerotic aortic valve leaflets. * No aortic regurgitation. * No aortic stenosis. Mitral Valve * Mild mitral annular calcification * Moderate mitral regurgitation. * No mitral stenosis. Tricuspid Valve * Normal tricuspid valve structure. * Mild-moderate tricuspid regurgitation. * Severe pulmonary hypertension. * Estimated RVSP is 73-83 mmHg. Pulmonic Valve * Pulmonic valve not well visualized. * No pulmonic regurgitation. Aorta * Normally sized aortic root. Pericardium * The pericardium appears normal. IVC * The IVC is dilated. * < 50% respiratory change. Device lead * A device lead was visualized in the right atrium and right ventricle. Pulmonary Artery * Pulmonary artery not well visualized. Consult Discharge Plan - Plan Referrals: Yaa Sanderson CNP [Primary Care Provider] -
[2017-07-24] MEDS ORDERED: 0.9 % Sodium Chloride 1,000 ML IVC SCH (15:45)
[2017-07-25 06:52] LABS: Basophils % 0.3 %; Eosinophils # 0.1 K/mcL (0.0-0.6); Eosinophils % 0.6 %; Hematocrit 39.7 % (35.3-44.9); Hemoglobin 11.5 g/dL (11.5-15.4); Immature Granulocytes % 1.2 % (0-4); Lymphocytes # 1.1 K/mcL (0.6-4.6); Lymphocytes % 9.8 %; Mean Corpuscular Hemoglobin 29.5 pg (28.0-33.3); Mean Corpuscular Volume 101.8 fL (83.0-100.0); Mean Platelet Volume 12.9 fL (9.4-12.4); Monocytes # 0.6 K/mcL (0.0-1.3); Monocytes % 5.7 %; Neutrophils # 9.3 K/mcL (1.6-8.9); Nucleated Red Blood Cells 0.2 /100 WBC (0); Platelet Count 133 K/mcL (140-400); Red Cell Distribution Width 15.4 % (11.5-14.5); Segmented Neutrophils % 82.4 %
[2017-07-25 07:39] LABS: Albumin 3.3 g/dL (3.5-5.7); Albumin/Globulin Ratio 1.4 (1.1-2.2); Bilirubin,Direct 0.2 mg/dL (0.0-0.2); Bilirubin,Indirect 0.3 mg/dL (0.0-1.2); Bilirubin,Total 0.5 mg/dL (0.3-1.0); Calcium 8.9 mg/dL (8.6-10.3); Globulin 2.3 g/dL (2.4-3.5); Potassium 5.5 mEq/L (3.5-5.1); Total Protein 5.6 g/dL (6.4-8.9)
[2017-07-25 08:36] LABS: Magnesium 2.4 mg/dL (1.6-2.6)
[2017-07-25] MEDS: Apixaban 2.5 MG TABLET PO SCH ×2 (08:44→21:10)
[2017-07-25] MEDS: Aspirin Enteric Coated 81 MG Tablet PO SCH (08:44)
[2017-07-25] MEDS: Insulin LISPRO 300 UNITS/3 ML VIAL SQ SCH ×4 (08:44→21:19)
[2017-07-25] MEDS: Carbidopa/Levodopa 25/100 TABLET PO SCH ×4 (08:44→21:11)
[2017-07-25] MEDS: Ascorbic Acid 500 MG TABLET PO SCH (08:44)
--- NOTE | 2017-07-25 10:54 | Nephrology Progress Note ---
Date of Encounter: 07/25/17 Time of Encounter: 12:00 - Assessment and Plan (1) CKD (chronic kidney disease) stage 3, GFR 30-59 ml/min Current Visit: Yes Status: Acute SCr slightly worse today despite fluids and off diuretics at 1.84, GFR 27, conscrening but will monitor UOP great at 1450cc in the past 24hrs continue to avoid nephrotoxins if possible (2) Azotemia Current Visit: Yes Status: Acute BUN also elevating at 121 despite fluids and off diuretics If worsening SCr persists along with elevated BUN, might discuss need to WASHING TUB OPERATOR with family (she has an identical sister whom she lives with but has not been present at the hospital) (3) Chronic venous stasis dermatitis Current Visit: Yes Status: Chronic Per primary team (4) Altered mental status Current Visit: Yes Status: Acute Appears to be delerium which does not equate uremia Qualifiers: Altered mental status type: delirium Qualified Code(s): R41.0 - Disorientation, unspecified Subjective Principal diagnosis: acute on chronic kidney disease Interval history: Pt seen and examined resting but arousable. Per nurse, pt had been sleeping all morning and ate no meals. No family yet to visit but daughter has been contacted for decisions. Objective - Vital Signs Vital signs: Vital Signs Temp Pulse Resp BP Pulse Ox 07/25/17 09:40 85 20 89/62 96 07/25/17 07:31 97.1 F L 99 20 86/68 97 07/25/17 05:02 97.7 F 96 18 107/70 98 07/24/17 20:18 98.5 F 84 18 111/60 96 07/24/17 19:00 95 07/24/17 15:33 97.6 F 83 20 122/71 95 Intake and Output 07/24/17 07/25/17 07/25/17 23:59 07:59 15:59 Intake Total 0 / 0 120 / 120 Output Total 600 / 600 150 / 150 Balance -600 / -600 -30 / -30 Intake: Oral 0 / 0 120 / 120 Output: Catheter 600 / 600 150 / 150 Other: Weight 136.6 kg Blood Glucose* 200 201 Patient Weight 07/25/17 23:59 Weight 136.6 kg - General Appearance General appearance: Present: chronically ill, fatigue EENT: Present: ATNC, mucous membranes dry Neck: Present: no JVD, supple Respiratory: Present: course breath sounds Cardiology: Present: edema, normal S1, normal S2 Gastrointestinal: Present: no tenderness, no guarding, obese Integumentary: Present: warm and dry Neurologic: Present: disoriented Musculoskeletal: Present: no deformities Psychiatric: Present: mood/affect appropriate, cooperative - Lab 07/25/17 06:37 07/25/17 06:37 Most recent lab results Calcium 8.9 mg/dL (8.6-10.3) 07/25/17 06:37 Magnesium 2.4 mg/dL (1.6-2.6) 07/25/17 06:37 Consult Discharge Plan - Plan Referrals: Yaa Sanderson, EXPANDED DUTY DENTAL ASSISTANT [Primary Care Provider] -
[2017-07-25] MEDS ORDERED: 0.9 % Sodium Chloride 1,000 ML IVC SCH (12:15)
--- NOTE | 2017-07-25 16:23 | Internal Med Progress Note ---
Date of Encounter: 07/25/17 Time of Encounter: 11:00 - Assessment and plan (1) Leg swelling Current Visit: Yes Status: Acute Assessment and plan: Likely chronic secondary to stasis dermatitis, venous insufficiency, underlying CKD and chronic CHF. Hold home dose of Lasix due to elevated BUN, continue lower extremity elevation. Echocardiogram shows preserved ejection fraction around 55%, mild concentric LVH, indeterminate diastolic function, moderate MR, severe pulmonary hypertension, device lead in right atrium and right ventricle. Arterial study shows bilateral lower extremity moderately occlusive disease. (2) Cellulitis Current Visit: Yes Status: Acute Assessment and plan: Continue IV clindamycin. Leg elevation. Continue to monitor closely. Qualifiers: Site of cellulitis: extremity Site of cellulitis of extremity: lower extremity Laterality: unspecified laterality Qualified Code(s): L03.119 - Cellulitis of unspecified part of limb (3) DMII (diabetes mellitus, type 2) Current Visit: Yes Status: Chronic Assessment and plan: Blood sugars fairly controlled. Continue sliding scale insulin, and basal insulin. Accu-Chek blood glucose monitoring. Diabetic diet. Hemoglobin A1c noted to be 9.2%. Qualifiers: Diabetes mellitus deburr operator insulin use: with mcc use Diabetes mellitus complication status: with kidney complications Diabetes mellitus complication detail: with chronic kidney disease Chronic kidney disease stage : stage 3 (moderate) Qualified Code(s): E11.22 - Type 2 diabetes mellitus with diabetic chronic kidney disease; N18.3 - Chronic kidney disease, stage 3 ( moderate); Z79.4 - natural remedy consultant (current) use of insulin (4) CKD (chronic kidney disease) Current Visit: Yes Status: Chronic Assessment and plan: Serum creatinine worse at 1.84. BUN worse at 121. Not responding to IV hydration. Discussed with nephrology, hold IV fluids as patient is noted to be having appropriate oral intake. Considering SMALL EQUIPMENT OPERATOR if no improvement. Nephrology recommendations appreciated; avoid nephrotoxins. Qualifiers: Chronic kidney disease stage: stage 3 (moderate) Qualified Code(s): N18.3 - Chronic kidney disease, stage 3 (moderate) (5) Dementia Current Visit: Yes Status: Chronic Assessment and plan: Patient noted to have had significant delirium and confusion. Continue to monitor. Qualifiers: Dementia type: Alzheimer's disease Alzheimer's disease onset: late-onset Dementia behavioral disturbance: with behavioral disturbance Qualified Code(s) : G30.1 - Alzheimer's disease with late onset; F02.81 - Dementia in other diseases classified elsewhere with behavioral disturbance (6) Atrial fibrillation Current Visit: Yes Status: Chronic Assessment and plan: Patient is noted to be on Eliquis as outpatient, continue. continue beta jose; Continue telemetry monitoring. has PPM; Qualifiers: Atrial fibrillation type: paroxysmal Qualified Code(s): I48.0 - Paroxysmal atrial fibrillation (7) Chronic venous stasis dermatitis Current Visit: Yes Status: Chronic Assessment and plan: associated with arterial ulcers and bullae; surgery signed off, recommendations appreciated; continue wound care and outpatient wound care center f/up; (8) Hypothyroidism Current Visit: Yes Status: Chronic Qualifiers: Hypothyroidism type: unspecified Qualified Code(s): E03.9 - Hypothyroidism , unspecified - Time Spent With Patient Total time spent is greater than 50% in coordination of care (as documented) at patient's floor/unit and/or counseling patient: - Subjective Interval history: Noted to be drowsy today unable to provide history; - Constitutional Vitals: Temp Pulse Resp BP Pulse Ox 97.3 F L 83 18 84/61 98 07/25/17 13:00 07/25/17 13:00 07/25/17 13:00 07/25/17 13:00 07/25/17 13:00 General appearance: Present: A&O X 0 (somnolent), morbidly obese. Absent: answers questions appropriately - Respiratory Respiratory exam: Present: CTAB (anterolaterally). Absent: accessory muscle use , rales, rhonchi, wheezes - Cardiovascular Cardiovascular exam: Present: RRR, +S1, +S2. Absent: diastolic murmur, gallop, rubs, systolic murmur - GI/Abdominal GI/Abdominal exam: Present: normal bowel sounds, soft (obese), no peritoneal signs. Absent: distended, tenderness - Extremities Exam Extremities exam: Present: pedal edema (improved in legs, persistent in thighs B /L), warm, radial pulses palpable and symmetrical. Absent: calf tenderness, cyanotic - Neurological Exam Neurological exam: Present: CN II-XII intact, no focal deficits. Absent: pronater drift, facial droop, speech deficit Internal Medicine: Result - Labs CBC & Chem 7: 07/25/17 06:37 07/25/17 06:37 Labs: Short CBC 07/25/17 Range/Units 06:37 WBC 11.3 H (4.3-11.1) K/mcL Hgb 11.5 (11.5-15.4) g/dL Hct 39.7 (35.3-44.9) % Plt Count 133 L (140-400) K/mcL Neutrophils # 9.3 H (1.6-8.9) K/mcL BMP 07/25/17 06:37 Sodium 139 Potassium 5.5 H Chloride 100 Carbon Dioxide 31 H BUN 121 H Creatinine 1.84 H Glucose 221 H Calcium 8.9 Liver Function 07/25/17 Range/Units 06:37 Total Bilirubin 0.5 (0.3-1.0) mg/dL Direct Bilirubin 0.2 (0.0-0.2) mg/dL AST 42 H (13-39) Units/L ALT 11 (7-52) Units/L Alkaline Phosphatase 490 H (34-104) Units/L Albumin 3.3 L (3.5-5.7) g/dL Consult Discharge Plan - Plan Referrals: Yaa Sanderson, PRODUCT MANAGER FINANCIAL SERVICES [Primary Care Provider] -
--- NOTE | 2017-07-26 11:17 | Nephrology Progress Note ---
Date of Encounter: 07/26/17 Time of Encounter: 12:00 - Assessment and Plan (1) CKD (chronic kidney disease) stage 3, GFR 30-59 ml/min Current Visit: Yes Status: Acute No new labs yet today, will await UOP dropped from 1450cc to 440cc in the past 24hrs which is concerning, now off IVF due to concerns for volume overload and lack of improvement continue to avoid nephrotoxins if possible (2) Azotemia Current Visit: Yes Status: Acute BUN also elevating at 121 despite fluids and off diuretics as of yesterday, las pending today but suspect worse given decreased UOP If worsening SCr persists along with elevated BUN, will definitely discuss need to INSPECTOR METAL FABRICATING with family (daughter) (3) Chronic venous stasis dermatitis Current Visit: Yes Status: Chronic Per primary team (4) Altered mental status Current Visit: Yes Status: Acute Appears to be delerium which does not equate uremia Qualifiers: Altered mental status type: delirium Qualified Code(s): R41.0 - Disorientation, unspecified Subjective Principal diagnosis: acute on chronic kidney disease Interval history: Pt seen and examined Objective - Vital Signs Vital signs: Vital Signs Temp Pulse Resp BP Pulse Ox 07/26/17 09:15 97.4 F L 91 18 100/69 95 07/26/17 04:52 97.3 F L 94 18 106/58 88 07/26/17 00:58 97.4 F L 94 18 141/67 96 07/25/17 20:05 97.5 F L 85 18 142/64 94 07/25/17 17:07 97.7 F 85 20 118/82 93 07/25/17 13:00 97.3 F L 83 18 84/61 98 Intake and Output 07/25/17 07/26/17 07/26/17 23:59 07:59 15:59 Intake Total 270 / 270 10 10 0 / 0 Output Total 40 / 40 Balance 230 / 230 10 10 0 / 0 Intake: Oral 260 / 260 0 / 0 Other Intake, Autotransfusion Amount Output: Catheter 40 40 Other: Meal Dinner Breakfast Percent of Meal Consumed 35% 0% Stool Size Small Stool Consistency soft Stool Color Brown # Bowel Movements 0 1 Weight 136.7 kg Blood Glucose* 228 203 Patient Weight 07/26/17 23:59 Weight 136.7 kg - Lab 07/25/17 06:37 07/25/17 06:37 Most recent lab results Calcium 8.9 mg/dL (8.6-10.3) 07/25/17 06:37 Magnesium 2.4 mg/dL (1.6-2.6) 18 06:37 Consult Discharge Plan - Plan Referrals: Yaa Sanderson, BILLY [Primary Care Provider] -
[2017-07-26 12:26] LABS: Blood Urea Nitrogen > 130 mg/dL (8-23); Calcium 8.8 mg/dL (8.6-10.3); Carbon Dioxide 31 mEq/L (23-29); Chloride 101 mEq/L (98-107); Glucose 243 mg/dL (70-105); Magnesium 2.6 mg/dL (1.6-2.6); Potassium 5.9 mEq/L (3.5-5.1); Sodium 139 mEq/L (136-145); eGFR For African Americans 23 (> 60); eGFR For Non-African Americans 19 (> 60)
[2017-07-26] MEDS: Insulin LISPRO 300 UNITS/3 ML VIAL SQ SCH ×4 (12:47→21:20)
[2017-07-26] MEDS: Apixaban 2.5 MG TABLET PO SCH ×3 (12:47→21:10)
[2017-07-26] MEDS: Ascorbic Acid 500 MG TABLET PO SCH ×2 (12:47→17:02)
[2017-07-26] MEDS: Aspirin Enteric Coated 81 MG Tablet PO SCH ×2 (12:47→17:01)
[2017-07-26] MEDS: Carbidopa/Levodopa 25/100 TABLET PO SCH ×4 (12:47→21:10)
--- NOTE | 2017-07-26 14:38 | Internal Med Progress Note ---
Date of Encounter: 07/26/17 Time of Encounter: 10:45 - Assessment and plan (1) CKD (chronic kidney disease) Current Visit: Yes Status: Chronic Assessment and plan: Worsening oliguric renal failure;urine output noted to be only 440cc in the last 24hours? Serum creatinine worse such 2.44, BUN increased to greater than 130, serum potassium 5.9. Not responding to IV hydration. Nephrology on board , probably we will discuss the need for WATER ANALYST with patient's family/power of family law attorney. We will give a dose of Kayexalate and monitor potassium closely. avoid nephrotoxins. Continue telemetry monitoring. Qualifiers: Chronic kidney disease stage: stage 3 (moderate) Qualified Code(s): N18.3 - Chronic kidney disease, stage 3 (moderate) (2) Leg swelling Current Visit: Yes Status: Acute Assessment and plan: Likely chronic secondary to stasis dermatitis, venous insufficiency, underlying CKD and chronic CHF. Improving. Hold home dose of Lasix due to elevated BUN, continue lower extremity elevation. Echocardiogram shows preserved ejection fraction around 55%, mild concentric LVH, indeterminate diastolic function, moderate MR, severe pulmonary hypertension, device lead in right atrium and right ventricle. Arterial study shows bilateral lower extremity moderately occlusive disease. (3) Cellulitis Current Visit: Yes Status: Acute Assessment and plan: Continue IV clindamycin. Will stop tomorrow after 5 days. Leg elevation. Continue to monitor closely. Qualifiers: Site of cellulitis: extremity Site of cellulitis of extremity: lower extremity Laterality: unspecified laterality Qualified Code(s): L03.119 - Cellulitis of unspecified part of limb (4) DMII (diabetes mellitus, type 2) Current Visit: Yes Status: Chronic Assessment and plan: Blood sugars intermittently elevated. Continue sliding scale insulin, and basal insulin. Accu-Chek blood glucose monitoring. Diabetic diet. Hemoglobin A1c noted to be 9.2%. Qualifiers: Diabetes mellitus fci insulin use: with oil heaterman use Diabetes mellitus complication status: with kidney complications Diabetes mellitus complication detail: with chronic kidney disease Chronic kidney disease stage : stage 3 (moderate) Qualified Code(s): E11.22 - Type 2 diabetes mellitus with diabetic chronic kidney disease; N18.3 - Chronic kidney disease, stage 3 ( moderate); Z79.4 - assisted (current) use of insulin (5) Dementia Current Visit: Yes Status: Chronic Qualifiers: Dementia type: Alzheimer's disease Alzheimer's disease onset: late-onset Dementia behavioral disturbance: with behavioral disturbance Qualified Code(s) : G30.1 - Alzheimer's disease with late onset; F02.81 - Dementia in other diseases classified elsewhere with behavioral disturbance (6) Atrial fibrillation Current Visit: Yes Status: Chronic Assessment and plan: Patient is noted to be on Eliquis as outpatient, continue. continue beta jose; Continue telemetry monitoring. has PPM; Qualifiers: Atrial fibrillation type: paroxysmal Qualified Code(s): I48.0 - Paroxysmal atrial fibrillation (7) Chronic venous stasis dermatitis Current Visit: Yes Status: Chronic Assessment and plan: associated with arterial ulcers and bullae; surgery signed off, recommendations appreciated; continue wound care and outpatient wound care center f/up; (8) Hypothyroidism Current Visit: Yes Status: Chronic Qualifiers: Hypothyroidism type: unspecified Qualified Code(s): E03.9 - Hypothyroidism , unspecified - Time Spent With Patient Total time spent is greater than 50% in coordination of care (as documented) at patient's floor/unit and/or counseling patient: - Subjective Interval history: Noted to be drowsy today, unable to provide history; wakes up to deep painful stimuli but quickly falls back asleep; - Constitutional Vitals: Temp Pulse Resp BP Pulse Ox 97.4 F L 95 16 92/65 93 07/26/17 09:15 07/26/17 13:12 07/26/17 13:12 07/26/17 13:12 07/26/17 13:12 General appearance: Present: A&O X 0 (somnolent), morbidly obese. Absent: answers questions appropriately - Respiratory Respiratory exam: Present: CTAB (anterolaterally B/L). Absent: accessory muscle use, rales, rhonchi, wheezes - Cardiovascular Cardiovascular exam: Present: irregular rhythm, +S1, +S2. Absent: diastolic murmur, gallop, rubs, systolic murmur - GI/Abdominal GI/Abdominal exam: Present: normal bowel sounds, soft (obese), no peritoneal signs. Absent: distended, tenderness - Extremities Exam Extremities exam: Present: pedal edema, warm, radial pulses palpable and symmetrical. Absent: calf tenderness, cyanotic - Neurological Exam Neurological exam: Present: altered, no focal deficits (unable to assess further ). Absent: pronater drift, facial droop, speech deficit Internal Medicine: Result - Labs CBC & Chem 7: 07/25/17 06:37 07/26/17 11:46 Labs: BMP 07/26/17 11:46 Sodium 139 Potassium 5.9 H Chloride 101 Carbon Dioxide 31 H BUN > 130 H Creatinine 2.44 H Glucose 243 H Calcium 8.8 Consult Discharge Plan - Plan Referrals: Yaa Sanderson, CARDIOVASCULAR SPECIALIST [Primary Care Provider] -
[2017-07-27 06:09] LABS: Basophils % 0.1 %; Eosinophils % 0.1 %; Hematocrit 39.3 % (35.3-44.9); Hemoglobin 11.4 g/dL (11.5-15.4); Immature Granulocytes % 1.2 % (0-4); Lymphocytes # 0.8 K/mcL (0.6-4.6); Lymphocytes % 4.6 %; Mean Corpuscular Hemoglobin 29.6 pg (28.0-33.3); Mean Corpuscular Volume 102.1 fL (83.0-100.0); Monocytes # 0.9 K/mcL (0.0-1.3); Monocytes % 5.6 %; Neutrophils # 14.3 K/mcL (1.6-8.9); Nucleated Red Blood Cells 0.3 /100 WBC (0); Platelet Count 155 K/mcL (140-400); Red Blood Count 3.85 M/mcL (3.82-4.97); Segmented Neutrophils % 88.4 %
[2017-07-27 06:43] LABS: Albumin 3.2 g/dL (3.5-5.7); Blood Urea Nitrogen > 130 mg/dL (8-23); Calcium 8.5 mg/dL (8.6-10.3); Carbon Dioxide 27 mEq/L (23-29); Chloride 101 mEq/L (98-107); Glucose 246 mg/dL (70-105); Phosphorous 6.9 mg/dL (2.7-4.5); Potassium 5.4 mEq/L (3.5-5.1); Sodium 140 mEq/L (136-145); eGFR For African Americans 21 (> 60); eGFR For Non-African Americans 17 (> 60)
[2017-07-27] MEDS ORDERED: 0.9 % Sodium Chloride 250 ML IVC PRN (09:59)
[2017-07-27] MEDS ORDERED: *HR* Heparin 10,000 UNIT/10 ML VIAL IV PRN (09:59)
[2017-07-27] MEDS ORDERED: 0.9 % Sodium Chloride 1,000 ML PRIME SCH ×2 (10:00→16:45)
[2017-07-27] MEDS: Insulin LISPRO 300 UNITS/3 ML VIAL SQ SCH ×4 (10:14→21:11)
[2017-07-27] MEDS: Ascorbic Acid 500 MG TABLET PO SCH (10:39)
[2017-07-27] MEDS: Carbidopa/Levodopa 25/100 TABLET PO SCH ×4 (10:40→20:00)
[2017-07-27] MEDS: Apixaban 2.5 MG TABLET PO SCH (10:40)
[2017-07-27] MEDS: Aspirin Enteric Coated 81 MG Tablet PO SCH (10:40)
--- NOTE | 2017-07-27 11:06 | Nephrology Progress Note ---
Date of Encounter: 07/27/17 Time of Encounter: 10:58 - Assessment and Plan (1) CKD (chronic kidney disease) Current Visit: Yes Status: Chronic BUN elevated > than 130 for 2 days despite IV fluids and holding diuretics. IR consult placed for HD temporary line placement. Cleaner And Presser consult placed for chair time in [place]. Continue to avoid nephrotoxins and renal dose all medications. Pt is very drowsy with assessment. Sitter at bedside, continuos pulse ox on. Qualifiers: Chronic kidney disease stage: stage 3 (moderate) Qualified Code(s): N18.3 - Chronic kidney disease, stage 3 (moderate) (2) Cellulitis Current Visit: Yes Status: Acute Per surgery/primary team. Qualifiers: Site of cellulitis: extremity Site of cellulitis of extremity: lower extremity Laterality: unspecified laterality Qualified Code(s): L03.119 - Cellulitis of unspecified part of limb (3) Chronic venous stasis dermatitis Current Visit: Yes Status: Chronic Per primary team. (4) DMII (diabetes mellitus, type 2) Current Visit: Yes Status: Chronic A1C has been as high as 9 in the past. Currently serum glucose is around 250 despite sliding scale insulin. Per primary team. Qualifiers: Diabetes mellitus ferry terminal agent insulin use: with ferry terminal agent use Diabetes mellitus complication status: with kidney complications Diabetes mellitus complication detail: with chronic kidney disease Chronic kidney disease stage : stage 3 (moderate) Qualified Code(s): E11.22 - Type 2 diabetes mellitus with diabetic chronic kidney disease; N18.3 - Chronic kidney disease, stage 3 ( moderate); Z79.4 - lobsterman (current) use of insulin Subjective Principal diagnosis: acute on chronic kidney disease Interval history: Pt seen and examiend. Sitter at bedside. Unable to answer yes/no questions at this time. Objective - Vital Signs Vital signs: Vital Signs Temp Pulse Resp BP Pulse Ox 07/27/17 07:56 93 07/27/17 06:56 97.5 F L 84 16 93 07/27/17 03:36 97.6 F 106 16 104/72 96 07/26/17 23:59 97.7 F 97 16 93/66 98 07/26/17 18:55 97.9 F 92 18 103/39 96 07/26/17 17:15 97.2 F L 92 18 92/69 97 07/26/17 13:12 95 16 92/65 93 Intake and Output 07/26/17 07/27/17 07/27/17 23:59 07:59 15:59 Intake Total 490 / 490 100 / 100 240 / 240 Output Total 150 / 150 Balance 340 / 340 100 / 100 240 / 240 Intake: Oral 480 / 480 100 / 100 240 / 240 Other Output: Catheter 150 / 150 Other: Meal Breakfast Percent of Meal Consumed 75% Stool Size Moderate Stool Consistency soft Stool Color Brown # Bowel Movements 1 Blood Glucose* 233 232 - General Appearance General appearance: Present: obese, chronically ill EENT: Present: ATNC, hearing intact, vision intact Neck: Present: supple Respiratory: Present: clear Cardiology: Present: edema (Trace, BLL bandages C/D/I) Gastrointestinal: Present: normoactive bowel sounds, no tenderness, no guarding Integumentary: Present: no rash, warm and dry Neurologic: Present: confused, disoriented Psychiatric: Present: mood/affect appropriate, cooperative - Lab 07/27/17 05:33 07/27/17 05:33 Most recent lab results Calcium 8.5 mg/dL (8.6-10.3) L 07/27/17 05:33 Phosphorus 6.9 mg/dL (2.7-4.5) H 07/27/17 05:33 Magnesium 2.6 mg/dL (1.6-2.6) 07/26/17 11:46 - VTE Documentation of Mechanical Device: Intermittent pneumatic compression device Consult Discharge Plan - Plan Referrals: Yaa Sanderson, ACCOUNT MANAGER B2B [Primary Care Provider] -
[2017-07-27 11:11] LABS: ABG Base Excess -1 mEq/L (-2 to 3); ABG HCO3 28 mEq/L (21-27); ABG Oxygen Saturation 84 % (95-98); ABG PCO2 68 mmHg (35-45); ABG PH 7.23 pH Units (7.32-7.45); ABG PO2 59 mmHg (85-104); ABG TCO2 31 mEq/L (20-26)
[2017-07-27] MEDS ORDERED: 0.9 % Sodium Chloride 500 ML ONE (11:44)
[2017-07-27 11:53] LABS: INR 1.4; Prothrombin Time 15.3 Seconds (9.4-12.1)
[2017-07-27 12:40] LABS: Hepatitis B Surface Antigen Nonreactive (Nonreactive)
--- NOTE | 2017-07-27 13:08 | IR Procedure Note ---
Date of procedure: 07/27/17 Consent Obtained: Verbal consent Timeout: Correct patient and procedure verified, Correct site verified, Time out performed, Skin prep completed Local anesthetic: Lidocaine 1% Indications: Renal failure Procedure Performed: Temp HD catheter placement Was there an hospital clinic assistant present: No Site/Technique: Right IJ temp HD catheter placed Results/Findings: Patent right IJ vein Estimated blood loss (cc): 5 Complications: None; Tolerated procedure well Post Procedure Treatment Plan: Post procedure CXR pending Specimen: None
[2017-07-27] MEDS ORDERED: *HR* Heparin 5,000 UNIT/ML VIAL ONE (13:25)
[2017-07-27] MEDS: Insulin DETEMIR 100 UNIT/ML X5UNITS SQ SCH (14:52)
--- NOTE | 2017-07-27 15:02 | Pulmonology Consult Note ---
<SamuelprateekCeci dias M - Last Filed: 07/27/17 15:44> Date of Encounter: 07/27/17 Medications and Allergies Apixaban [Eliquis] 2.5 mg PO BID 07/23/17 [History] Ascorbate Calcium [Vitamin C] 500 mg PO DAILY 07/23/17 [History] Aspirin Enteric Coated [Aspirin EC] 81 mg PO DAILY 07/23/17 [History] Carbidopa/Levodopa [Carbidopa-Levo 25-100 mg Odt] 1 tab PO QID 07/23/17 [History ] Furosemide [Lasix] 40 mg PO BID 07/23/17 [History] Insulin ASPART [Novolog] 2 - 15 unit SQ TIDWM 07/23/17 [History] Insulin Glargine,Hum.rec.anlog [Lantus Solostar] 45 unit SQ HS 07/23/17 [History ] Ipratropium/Albuterol Neb [Duoneb] 3 ml IH Q6HR PRN 07/23/17 [History] Levothyroxine [Synthroid] 112 mcg PO 0630 07/23/17 [History] Lovastatin 40 mg PO BID 07/23/17 [History] Metoprolol [Lopressor] 25 mg PO BID 07/23/17 [History] Polyethylene Glycol 3350 [MiraLAX] 17 gm PO DAILY 07/23/17 [History] Polyvinyl Alcohol [Artificial Tears] 2 drop OP BID PRN 07/23/17 [History] Potassium Chloride [K-Tab ER] 10 meq PO DAILY 07/23/17 [History] 3 Allergy/AdvReac Type Severity Reaction Status Date / Time No Known Allergies Allergy Verified 07/23/17 00:19 All Systems: The remainder of the systems were reviewed and are negative Physical Examination Vital Signs: Vital Signs, Last 4 Hours Temp Pulse Resp BP Pulse Ox 07/27/17 15:37 113 16 89/27 95 07/27/17 15:01 11 89/54 94 07/27/17 14:25 96.7 F L 101 19 69/46 93 07/27/17 12:19 120 12 93/54 07/27/17 11:48 97.5 F L 117 20 70/48 93 Results - Laboratory Findings CBC and BMP: 07/27/17 05:33 07/27/17 05:33 ABG ABG pH 7.23 pH Units (7.32-7.45) L 07/27/17 11:08 ABG pCO2 68 mmHg (35-45) H 07/27/17 11:08 ABG pO2 59 mmHg (85-104) L 07/27/17 11:08 ABG O2 Saturation 84 % (95-98) L 07/27/17 11:08 PT/INR, D-dimer PT 15.3 Seconds (9.4-12.1) H 07/27/17 11:13 Abnormal lab findings: Abnormal lab results WBC 16.2 K/mcL (4.3-11.1) H 07/27/17 05:33 Hgb 11.4 g/dL (11.5-15.4) L 07/27/17 05:33 MCV 102.1 fL (83.0-100.0) H 07/27/17 05:33 MCHC 29.0 g/dL (31.6-35.5) L 07/27/17 05:33 RDW 15.0 % (11.5-14.5) H 07/27/17 05:33 MPV 13.0 fL (9.4-12.4) H 07/27/17 05:33 Neutrophils # 14.3 K/mcL (1.6-8.9) H 07/27/17 05:33 Nucleated RBCs/100 WBC 0.3 /100 WBC (0) H 07/27/17 05:33 Platelet Estimate Slight Decrease (Normal) L 07/24/17 05:45 Hypochromasia Present (Not Present) A 07/24/17 05:45 PT 15.3 Seconds (9.4-12.1) H 07/27/17 11:13 ABG pH 7.23 pH Units (7.32-7.45) L 07/27/17 11:08 ABG pCO2 68 mmHg (35-45) H 07/27/17 11:08 ABG pO2 59 mmHg (85-104) L 07/27/17 11:08 ABG HCO3 28 mEq/L (21-27) H 07/27/17 11:08 ABG Total CO2 31 mEq/L (20-26) H 07/27/17 11:08 ABG O2 Saturation 84 % (95-98) L 07/27/17 11:08 Potassium 5.4 mEq/L (3.5-5.1) H 07/27/17 05:33 BUN > 130 mg/dL (8-23) H 07/27/17 05:33 Creatinine 2.69 mg/dL (0.60-1.20) H 07/27/17 05:33 Est GFR ( Amer) 21 (> 60) L 07/27/17 05:33 Est GFR (Non-Af Amer) 17 (> 60) L 07/27/17 05:33 Glucose 246 mg/dL (70-105) H 07/27/17 05:33 POC Glucose 203 mg/dL (70-99) H 07/26/17 08:55 Hemoglobin A1c 9.2 % (-5.6) H 07/23/17 05:09 Calcium 8.5 mg/dL (8.6-10.3) L 07/27/17 05:33 Phosphorus 6.9 mg/dL (2.7-4.5) H 07/27/17 05:33 AST 42 Units/L (13-39) H 07/25/17 06:37 Alkaline Phosphatase 490 Units/L (34-104) H 07/25/17 06:37 Serum Total Protein 5.6 g/dL (6.4-8.9) L 07/25/17 06:37 Albumin 3.2 g/dL (3.5-5.7) L 07/27/17 05:33 Globulin 2.3 g/dL (2.4-3.5) L 07/25/17 06:37 - Clinical Findings Intake & Output: Intake & Output 07/26/17 07/27/17 07/27/17 23:59 07:59 15:59 Intake Total 490 / 490 100 / 100 240 / 240 Output Total 150 / 150 Balance 340 / 340 100 / 100 240 / 240 Weight 132.4 kg Consult Discharge Plan - Plan Referrals: Yaa Sanderson, MOTOR VEHICLE ASSEMBLER [Primary Care Provider] - - Attending Attestation I examined this patient and my medical decision-making was reviewed with the Resident Physician. I agree with the documented findings, disposition and treatment plan as described except to the extent set forth below. Patient seen and examined. Labs, radiology, chart personally reviewed. Patient was seen and examined with the resident in 2 A and discussed with the primary team Agree with resident's history and physical, assessment, plan with following comments: INDUSTRIAL SAFETY AND HEALTH TECHNICIAN: Patient does follows simple commands, patient is lethargic and somnolent Pulmonary: Acceptable oxygenation and ventilation on noninvasive ventilation, however I am concerned that her condition could deteriorate and might need invasive mechanical ventilation. Due to her multiple comorbidities will attempt to reach power of attorney law clerk and primary team told me patient is full code. Cardiovascular: Hypertensive which I suspect is multifactorial and its possible related to sepsis and broad-spectrum antibiotic to be started and consider infectious disease for now patient to be started on vasopressor to tolerate dialysis. GI: Nutrition per dietary and GI prophylaxis per routine patient is taking by mouth Heme: DVT prophylaxis per routine ID: Continue antibiotics and plan to de-escalation and infectious disease consultation Renal; urine out put and renal funtion reviewed Endorcine: blood glucose is monitored Lines: all lines checked and no evidence of infections Skin: skin care to prevent pressure ulcers per nursing routine care I spent 35 min of Critical Care time with this patient. It involved decision making of high complexity to assess, manipulate, and support vital organ system failure and/or to prevent further life threatening deterioration of the patient' s condition. The time involved in the performance of separately reportable procedures was not counted toward critical care time. <Marion Bolaños - Last Filed: 07/27/17 21:20> Date of Encounter: 07/27/17 Time of Encounter: 15:02 Assessment and Plan (1) Hypotension Current Visit: Yes Status: Acute Unclear etiology at this point. Likely cardiogenic with third-spacing. Other etiologies include, but less likely, sepsis. Blood cultures and lactate ordered. Systolic BPs in 60-70s prior to ICU Plan Started on vasopressors (levo) through right IJ. Goal MAP >65 Hold diuresis at this time Will order albumin to reverse third spacing Pt may get fluid removal via HD per nephro Qualifiers: Hypotension type: unspecified hypotension type Qualified Code(s): I95.9 - Hypotension, unspecified (2) Acute respiratory failure Current Visit: Yes Status: Acute Secondary to CHF exacerbation Currently tolerating BiPAP with O2 sats in high 90s Transferred to ICU for risk of worsening respiratory status with hypotension ABG shows Respiratory acidosis, likely acute in nature CXR on 07/27/17 shows worsening pulmonary edema with bilateral pleural effusions and bilateral opacities Plan Holding diuretics due to hypotension Plan for fluid removal in HD if able Continue BiPAP support with low threshold for intubation Continue Ceftriaxone Qualifiers: Respiratory failure complication: hypoxia and hypercapnia Qualified Code(s) : J96.01 - Acute respiratory failure with hypoxia; J96.02 - Acute respiratory failure with hypercapnia (3) CKD (chronic kidney disease) Current Visit: Yes Status: Chronic Acute renal failure on CKD stage III. Renal failure worsening despite holding diuretics, BUN > 130 with Cr 2.69 Nephro following Plan Hemodialysis per nephro Continue avoiding nephrotoxic agents, renal dosing when possible Qualifiers: Chronic kidney disease stage: stage 3 (moderate) Qualified Code(s): N18.3 - Chronic kidney disease, stage 3 (moderate) (4) Leg swelling Current Visit: Yes Status: Acute Likely chronic in nature d/t underlying CKD, chronic CHF, venous insufficiency Bilateral LE cellulitis. Received clindamycin x 5 days. Diuretics being held d/t worsening renal failure Compression wraps bilateral LE Plan Continue to hold diuretics Continue compression wraps Expect decrease in swelling with HD (5) Cellulitis Current Visit: Yes Status: Acute Clindamycin stopped after 5 days Plan Started Rocephin today ID consulted, appreciate recommendations Qualifiers: Site of cellulitis: extremity Site of cellulitis of extremity: lower extremity Laterality: unspecified laterality Qualified Code(s): L03.119 - Cellulitis of unspecified part of limb (6) DMII (diabetes mellitus, type 2) Current Visit: Yes Status: Chronic Continue SSI and basal insulin Qualifiers: Diabetes mellitus streaming media specialist insulin use: with fci use Diabetes mellitus complication status: with kidney complications Diabetes mellitus complication detail: with chronic kidney disease Chronic kidney disease stage : stage 3 (moderate) Qualified Code(s): E11.22 - Type 2 diabetes mellitus with diabetic chronic kidney disease; N18.3 - Chronic kidney disease, stage 3 ( moderate); Z79.4 - patient intake representative (current) use of insulin (7) Atrial fibrillation Current Visit: Yes Status: Chronic Afib with RVR Metoprolol currently being held d/t hypotension Eliquis at home for anticoagulation Plan Continue to hold Eliquis while receiving continuous renal replacement therapy Likely resume metoprolol with correction of hypotension Qualifiers: Atrial fibrillation type: paroxysmal Qualified Code(s): I48.0 - Paroxysmal atrial fibrillation (8) Dementia Current Visit: Yes Status: Chronic Qualifiers: Dementia type: Alzheimer's disease Alzheimer's disease onset: late-onset Dementia behavioral disturbance: with behavioral disturbance Qualified Code(s) : G30.1 - Alzheimer's disease with late onset; F02.81 - Dementia in other diseases classified elsewhere with behavioral disturbance (9) DVT prophylaxis Current Visit: Yes Status: Acute On CRRT with heparin History of Present Illness Consult date: 07/27/17 History of present illness: Ms. Godwin is a 77 year-old female with PMH of DM, HTN, CAD, AICD, CABG, OA, CKD who was transferred from [facility] for LE swelling and possible CHF exacerbation. Pt was poor historian on arrival to [facility] and further hx currently unobtainable d/t her mental status. Noted to have acute on chronic renal failure and is being followed by nephrology. Required temporary dialysis catheter for HD d/t worsening oliguric renal failure today. She has been transferred to the ICU for closer monitoring after becoming hypotensive with SBP between 60-70 and for acute respiratory failure requiring NIPPV with risk for worsening respiratory status. Past Med Surg Social Fam HX - Past Medical History Medical history: CHF, diabetes, renal disease Additional medical history: blood clots but unsure where - Social History Smoking Status: Never smoker - Family History Father History Unknown: Yes ROS unobtainable: due to mental status All Systems: The remainder of the systems were reviewed and are negative Physical Examination Vital Signs: Vital Signs, Last 4 Hours Temp Pulse Resp BP Pulse Ox 07/27/17 12:19 120 12 93/54 07/27/17 11:48 97.5 F L 117 20 70/48 93 07/27/17 11:40 15 70/48 92 07/27/17 11:37 70/48 07/27/17 11:25 22 92 General appearance: lethargic Eyes: nonicteric, other (PERRL) Neck: other (R-sided tunneled HD cath) Effort: very labored (BiPAP) Auscultation: bilateral: diminished breath sounds Cardiovascular: irregular rhythm (with tachycardia) Gastrointestinal: normoactive bowel sounds, soft, non-tender Extremities: no cyanosis, cool (bilateral lower extremities), other (bilateral lower extremity pressure wrappings) pupils equal and round, unable to assess due to mental status, other (withdraws to pain, does not open eyes on command) Results - Laboratory Findings CBC and BMP: 07/27/17 05:33 07/27/17 05:33 ABG ABG pH 7.23 pH Units (7.32-7.45) L 07/27/17 11:08 ABG pCO2 68 mmHg (35-45) H 07/27/17 11:08 ABG pO2 59 mmHg (85-104) L 07/27/17 11:08 ABG O2 Saturation 84 % (95-98) L 07/27/17 11:08 PT/INR, D-dimer PT 15.3 Seconds (9.4-12.1) H 07/27/17 11:13 Abnormal lab findings: Abnormal lab results WBC 16.2 K/mcL (4.3-11.1) H 07/27/17 05:33 Hgb 11.4 g/dL (11.5-15.4) L 07/27/17 05:33 MCV 102.1 fL (83.0-100.0) H 07/27/17 05:33 MCHC 29.0 g/dL (31.6-35.5) L 07/27/17 05:33 RDW 15.0 % (11.5-14.5) H 07/27/17 05:33 MPV 13.0 fL (9.4-12.4) H 07/27/17 05:33 Neutrophils # 14.3 K/mcL (1.6-8.9) H 07/27/17 05:33 Nucleated RBCs/100 WBC 0.3 /100 WBC (0) H 07/27/17 05:33 Platelet Estimate Slight Decrease (Normal) L 07/24/17 05:45 Hypochromasia Present (Not Present) A 07/24/17 05:45 PT 15.3 Seconds (9.4-12.1) H 07/27/17 11:13 ABG pH 7.23 pH Units (7.32-7.45) L 07/27/17 11:08 ABG pCO2 68 mmHg (35-45) H 07/27/17 11:08 ABG pO2 59 mmHg (85-104) L 07/27/17 11:08 ABG HCO3 28 mEq/L (21-27) H 07/27/17 11:08 ABG Total CO2 31 mEq/L (20-26) H 06/04/18 11:08 ABG O2 Saturation 84 % (95-98) L 07/27/17 11:08 Potassium 5.4 mEq/L (3.5-5.1) H 07/27/17 05:33 BUN > 130 mg/dL (8-23) H 07/27/17 05:33 Creatinine 2.69 mg/dL (0.60-1.20) H 07/27/17 05:33 Est GFR ( Amer) 21 (> 60) L 07/27/17 05:33 Est GFR (Non-Af Amer) 17 (> 60) L 07/27/17 05:33 Glucose 246 mg/dL (70-105) H 07/27/17 05:33 POC Glucose 203 mg/dL (70-99) H 07/26/17 08:55 Hemoglobin A1c 9.2 % (-5.6) H 07/23/17 05:09 Calcium 8.5 mg/dL (8.6-10.3) L 07/27/17 05:33 Phosphorus 6.9 mg/dL (2.7-4.5) H 07/27/17 05:33 AST 42 Units/L (13-39) H 07/25/17 06:37 Alkaline Phosphatase 490 Units/L (34-104) H 07/25/17 06:37 Serum Total Protein 5.6 g/dL (6.4-8.9) L 07/25/17 06:37 Albumin 3.2 g/dL (3.5-5.7) L 07/27/17 05:33 Globulin 2.3 g/dL (2.4-3.5) L 07/25/17 06:37 - Clinical Findings Intake & Output: Intake & Output 07/26/17 07/27/17 07/27/17 23:59 07:59 15:59 Intake Total 490 / 490 100 / 100 240 / 240 Output Total 150 / 150 Balance 340 / 340 100 / 100 240 / 240
[2017-07-27] MEDS: Norepinephrine 4 MG in D5% in Water 250 ML IVC SCH ×2 (15:12→20:12)
--- NOTE | 2017-07-27 16:06 | Internal Med Progress Note ---
Date of Encounter: 07/27/17 Time of Encounter: 10:00 - Assessment and plan (1) Hypotension Current Visit: Yes Status: Acute Assessment and plan: Systolic blood pressure noted to be in 60s to 70s, initially responded to IV fluid bolus. Hypotension is likely secondary to pulmonary edema and third spacing. No concern for infection at this time, we will send blood cultures and check lactic acid. Case discussed with pulmonology, patient is being transferred to ICU for closer monitoring. She received right IJ temporary dialysis catheter with pigtail, will start IV norepinephrine drip to maintain map greater than 65. Plan for initiation of hemodialysis today. Qualifiers: Hypotension type: unspecified hypotension type Qualified Code(s): I95.9 - Hypotension, unspecified (2) Acute respiratory failure Current Visit: Yes Status: Acute Assessment and plan: Worsening hypoxemia likely due to pulmonary edema and pleural effusions. ABG reviewed-mild respiratory acidosis with pH 7.3, PCO2 68, PO2 59. Started patient on BiPAP support. Continue telemetry monitoring. She is at risk for worsening respiratory failure and may require endotracheal intubation and mechanical ventilation. She will be monitored closely in ICU. Nephrology is following patient, plan for initiation of hemodialysis due to volume overload and worsening hyperkalemia, serum creatinine and BUN despite IV hydration. Qualifiers: Respiratory failure complication: hypoxia and hypercapnia Qualified Code(s) : J96.01 - Acute respiratory failure with hypoxia; J96.02 - Acute respiratory failure with hypercapnia (3) CKD (chronic kidney disease) Current Visit: Yes Status: Chronic Assessment and plan: Worsening oliguric renal failure; Serum creatinine worse such 2.69, BUN increased to greater than 130, serum potassium 5.4. Not responding to IV hydration. Nephrology on board, patient received right IJ temporary dialysis catheter. Plan for initiation of hemodialysis today. avoid nephrotoxins. Continue telemetry monitoring. Qualifiers: Chronic kidney disease stage: stage 3 (moderate) Qualified Code(s): N18.3 - Chronic kidney disease, stage 3 (moderate) (4) Leg swelling Current Visit: Yes Status: Acute Assessment and plan: Likely chronic secondary to stasis dermatitis, venous insufficiency, underlying CKD and chronic CHF. Hold home dose of Lasix due to elevated BUN, continue lower extremity elevation. Echocardiogram shows preserved ejection fraction around 55%, mild concentric LVH , indeterminate diastolic function, moderate MR, severe pulmonary hypertension, device lead in right atrium and right ventricle. Arterial study shows bilateral lower extremity moderately occlusive disease. (5) Cellulitis Current Visit: Yes Status: Acute Assessment and plan: Received clindamycin for 5 days, we will discontinue today. Leg elevation. Continue to monitor closely. Qualifiers: Site of cellulitis: extremity Site of cellulitis of extremity: lower extremity Laterality: unspecified laterality Qualified Code(s): L03.119 - Cellulitis of unspecified part of limb (6) DMII (diabetes mellitus, type 2) Current Visit: Yes Status: Chronic Assessment and plan: Blood sugars noted to be elevated. Start low-dose basal insulin. Continue sliding scale insulin, Accu-Chek blood glucose monitoring. Diabetic diet. Hemoglobin A1c noted to be 9.2%. Expect blood sugars to drop with dialysis. 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 Lethargic today. Patient's daughter is her power of defense attorney. Continue to monitor. Qualifiers: Dementia type: Alzheimer's disease Alzheimer's disease onset: late-onset Dementia behavioral disturbance: with behavioral disturbance Qualified Code(s) : G30.1 - Alzheimer's disease with late onset; F02.81 - Dementia in other diseases classified elsewhere with behavioral disturbance (8) Atrial fibrillation Current Visit: Yes Status: Chronic Assessment and plan: Patient is noted to be on Eliquis as outpatient, continue. continue beta jose; Continue telemetry monitoring. has PPM; Noted to be tachycardic today with hypotension. Expect heart rate to improve with correction of blood pressure. Use when necessary IV metoprolol. Qualifiers: Atrial fibrillation type: paroxysmal Qualified Code(s): I48.0 - Paroxysmal atrial fibrillation (9) Chronic venous stasis dermatitis Current Visit: Yes Status: Chronic Assessment and plan: associated with arterial ulcers and bullae; surgery signed off, recommendations appreciated; continue wound care and outpatient wound care center f/up; (10) Hypothyroidism Current Visit: Yes Status: Chronic Qualifiers: Hypothyroidism type: unspecified Qualified Code(s): E03.9 - Hypothyroidism , unspecified - Time Spent With Patient Total time spent is greater than 50% in coordination of care (as documented) at patient's floor/unit and/or counseling patient: - Subjective Interval history: Patient is very lethargic, ate breakfast per staff anesthetist, then became drowsy and asleep; not responding to touch or painful stimuli; noted to be hypoxic and becoming hypotensive; - Constitutional Vitals: Temp Pulse Resp BP Pulse Ox 96.7 F L 113 16 89/27 95 07/27/17 14:25 07/27/17 15:37 07/27/17 15:37 07/27/17 15:37 07/27/17 15:37 General appearance: Present: A&O X 0 (lethargic), morbidly obese. Absent: answers questions appropriately - Respiratory Respiratory exam: Present: CTAB (coarse breath sounds B/L). Absent: accessory muscle use, rales, rhonchi, wheezes - Cardiovascular Cardiovascular exam: Present: irregular rhythm, +S1, +S2, tachycardia. Absent: diastolic murmur, gallop, rubs, systolic murmur - GI/Abdominal GI/Abdominal exam: Present: normal bowel sounds, soft (obese), no peritoneal signs. Absent: distended, tenderness - Extremities Exam Extremities exam: Present: pedal edema (DEAN wraps B/L legs), warm, radial pulses palpable and symmetrical. Absent: calf tenderness, cyanotic - Neurological Exam Neurological exam: Present: altered. Absent: pronater drift, facial droop, speech deficit Additional comments: further assessment cannot be completed - Skin Skin exam: Present: dry, intact Internal Medicine: Result - Labs CBC & Chem 7: 07/27/17 05:33 07/27/17 05:33 Labs: Short CBC 07/27/17 Range/Units 05:33 WBC 16.2 H (4.3-11.1) K/mcL Hgb 11.4 L (11.5-15.4) g/dL Hct 39.3 (35.3-44.9) % Plt Count 155 (140-400) K/mcL Neutrophils # 14.3 H (1.6-8.9) K/mcL BMP 07/27/17 05:33 Sodium 140 Potassium 5.4 H Chloride 101 Carbon Dioxide 27 BUN > 130 H Creatinine 2.69 H Glucose 246 H Calcium 8.5 L Liver Function 07/27/17 Range/Units 05:33 Albumin 3.2 L (3.5-5.7) g/dL - ABG Interpretation ABG results: ABG ABG pH 7.23 pH Units (7.32-7.45) L 07/27/17 11:08 ABG pCO2 68 mmHg (35-45) H 07/27/17 11:08 ABG pO2 59 mmHg (85-104) L 07/27/17 11:08 ABG O2 Saturation 84 % (95-98) L 07/27/17 11:08 PT/INR, D-dimer PT 15.3 Seconds (9.4-12.1) H 07/27/17 11:13 - Impressions Impressions Guidance Needle Placement Ultrasound 07/27/17 00:00 IMPRESSION: Temporary right IJ hemodialysis catheter placement. A postprocedure chest radiograph has been completed, which confirms appropriate position in the high right atrium. D/ / 07/27/2017 14:24:18 Kirby Arthur MD / Teagan Alarcon Interpreting Provider: Kirby Arthur MD Insertion Non-Tunneled Catheter 07/27/17 00:00 IMPRESSION: Temporary right IJ hemodialysis catheter placement. A postprocedure chest radiograph has been completed, which confirms appropriate position in the high right atrium. D/ / 07/27/2017 14:24:18 Kirby Arthur MD / Teagan Alarcon Interpreting Provider: Kirby Arthur MD Chest X-Ray 07/27/17 13:07 IMPRESSION: 1. Findings are concerning for worsening pulmonary edema. Worsening bilateral pleural effusions and bibasilar pulmonary opacities. Recommend radiographic follow-up to complete resolution. 2. Right IJ central venous catheter projects over the cavoatrial junction. No evidence of pneumothorax. D/ / 07/27/2017 14:25:41 Herve Chavez MD / Teagan Alarcon Interpreting Provider: Herve Chavez MD - VTE Documentation of Mechanical Device: Intermittent pneumatic compression device Consult Discharge Plan - Plan Referrals: Yaa Sanderson, BILLY [Primary Care Provider] -
[2017-07-27] MEDS ORDERED: *HR* Heparin 5,000 UNIT/ML VIAL IV PRN (16:42)
[2017-07-27] MEDS ORDERED: Calcium Gluconate 2,000 MG in 0.9 % Sodium Chloride 100 ML IVPB PRN (16:42)
[2017-07-27] MEDS ORDERED: *HR* Alteplase (Cathflo) 2 MG VIAL IVP PRN (16:42)
[2017-07-27] MEDS: Albumin 25% 25gram/100mL 25 GM/100 ML IV.SOLN IVC SCH ×4 (16:52→17:23)
[2017-07-27] MEDS ORDERED: cefTRIAXone 2,000 MG in Water for inj. (sterile) 20 ML 20 ML IVP SCH (17:00)
[2017-07-27 18:13] LABS: VBG Ionized Calcium 1.04 mmol/L (1.15-1.35); VBG PH 7.19 pH Units (7.32-7.42)
[2017-07-27] MEDS: Dexmedetomidine HCl 400 MCG/100 ML MLS IVC PRN (19:58)
[2017-07-27] MEDS: CALCIUM CHLORIDE IVPB SCH ×2 (20:54)
[2017-07-27] MEDS: PRISMASATE BGK IVPB SCH ×2 (20:54)
[2017-07-27] MEDS: Calcium Chloride 4,000 MG in 0.9 % Sodium Chloride 1,000 ML CRRT SCH (20:56)
[2017-07-27] MEDS ORDERED: 0.9 % Sodium Chloride 1,000 ML PRIME PRN (22:18)
[2017-07-27 23:24] LABS: VBG Ionized Calcium 0.96 mmol/L (1.15-1.35)
[2017-07-28] MEDS: Norepinephrine 4 MG in D5% in Water 250 ML IVC SCH ×2 (00:21→11:53)
[2017-07-28 01:28] LABS: VBG Ionized Calcium 0.97 mmol/L (1.15-1.35)
[2017-07-28] MEDS: Dexmedetomidine HCl 400 MCG/100 ML MLS IVC PRN ×3 (02:43→19:15)
[2017-07-28 03:45] LABS: Hemoglobin 10.5 g/dL (11.5-15.4); Nucleated Red Blood Cells 0.6 /100 WBC (0); Platelet Count 146 K/mcL (140-400)
[2017-07-28 03:46] LABS: Hematocrit 35.5 % (35.3-44.9); Mean Corpuscular HGB Conc 29.6 g/dL (31.6-35.5); Mean Corpuscular Hemoglobin 28.8 pg (28.0-33.3); Mean Corpuscular Volume 97.3 fL (83.0-100.0); Mean Platelet Volume 12.4 fL (9.4-12.4); Red Blood Count 3.65 M/mcL (3.82-4.97); Red Cell Distribution Width 15.1 % (11.5-14.5)
[2017-07-28] MEDS: CALCIUM CHLORIDE IVPB SCH ×5 (03:46→23:13)
[2017-07-28] MEDS: PRISMASATE BGK IVPB SCH ×5 (03:46→23:13)
[2017-07-28 03:49] LABS: VBG Ionized Calcium 0.93 mmol/L (1.15-1.35)
[2017-07-28 04:04] LABS: Albumin 3.8 g/dL (3.5-5.7); Albumin/Globulin Ratio 2.2 (1.1-2.2); Bilirubin,Direct 0.4 mg/dL (0.0-0.2); Bilirubin,Indirect 0.3 mg/dL (0.0-1.2); Bilirubin,Total 0.7 mg/dL (0.3-1.0); Calcium 8.2 mg/dL (8.6-10.3); Globulin 1.7 g/dL (2.4-3.5); Magnesium 2.3 mg/dL (1.6-2.6); Phosphorous 4.5 mg/dL (2.7-4.5); Potassium 4.3 mEq/L (3.5-5.1); Total Protein 5.5 g/dL (6.4-8.9)
[2017-07-28 04:23] LABS: Lymphocytes # 1.1 K/mcL (0.6-4.6); Monocytes # 1.6 K/mcL (0.0-1.3); Neutrophils # 24.1 K/mcL (1.6-8.9)
[2017-07-28 04:24] LABS: Platelet Estimate Normal (Normal)
[2017-07-28 06:28] LABS: VBG Ionized Calcium 0.95 mmol/L (1.15-1.35)
--- NOTE | 2017-07-28 07:25 | Pulmonology Progress Note ---
<SamuelprateekCeci dias M - Last Filed: 07/28/17 09:38> Date of Encounter: 07/28/17 Objective PUL Vital signs: Last Vital Signs Temp 93.5 F L 07/28/17 08:00 Pulse 94 07/28/17 08:00 Resp 15 07/28/17 08:00 BP 121/76 07/28/17 08:00 Pulse Ox 100 07/28/17 08:00 Results - Laboratory Findings CBC and BMP: 07/28/17 03:33 07/28/17 03:33 ABG ABG pH 7.23 pH Units (7.32-7.45) L 07/27/17 11:08 ABG pCO2 68 mmHg (35-45) H 07/27/17 11:08 ABG pO2 59 mmHg (85-104) L 07/27/17 11:08 ABG O2 Saturation 84 % (95-98) L 07/27/17 11:08 PT/INR, D-dimer PT 15.3 Seconds (9.4-12.1) H 07/27/17 11:13 Abnormal lab findings: Abnormal lab results WBC 26.8 K/mcL (4.3-11.1) H D 07/28/17 03:33 RBC 3.65 M/mcL (3.82-4.97) L 07/28/17 03:33 Hgb 10.5 g/dL (11.5-15.4) L 07/28/17 03:33 MCHC 29.6 g/dL (31.6-35.5) L 07/28/17 03:33 RDW 15.1 % (11.5-14.5) H 07/28/17 03:33 Band Neutrophils % 6.0 % (0-4) H 07/28/17 03:33 Neutrophils # 24.1 K/mcL (1.6-8.9) H 07/28/17 03:33 Monocytes # 1.6 K/mcL (0.0-1.3) H 07/28/17 03:33 Nucleated RBCs/100 WBC 0.6 /100 WBC (0) H 07/28/17 03:33 Hypochromasia Present (Not Present) A 07/24/17 05:45 PT 15.3 Seconds (9.4-12.1) H 07/27/17 11:13 APTT 38.4 Seconds (26.0-36.0) H 07/28/17 03:33 ABG pH 7.23 pH Units (7.32-7.45) L 07/27/17 11:08 ABG pCO2 68 mmHg (35-45) H 07/27/17 11:08 ABG pO2 59 mmHg (85-104) L 07/27/17 11:08 ABG HCO3 28 mEq/L (21-27) H 07/27/17 11:08 ABG Total CO2 31 mEq/L (20-26) H 07/27/17 11:08 ABG O2 Saturation 84 % (95-98) L 07/27/17 11:08 VBG pH 7.19 pH Units (7.32-7.42) L* 07/27/17 17:59 BUN 124 mg/dL (8-23) H 07/28/17 03:33 Creatinine 2.67 mg/dL (0.60-1.20) H 07/28/17 03:33 Est GFR ( Amer) 21 (> 60) L 07/28/17 03:33 Est GFR (Non-Af Amer) 17 (> 60) L 07/28/17 03:33 BUN/Creatinine Ratio 46 (6-26) H 07/28/17 03:33 Glucose 302 mg/dL (70-105) H 07/28/17 03:33 POC Glucose 233 mg/dL (70-99) H 07/28/17 07:42 Hemoglobin A1c 9.2 % (-5.6) H 07/23/17 05:09 Calculated Osmolality 339 (280-300) H 07/28/17 03:33 Calcium 8.2 mg/dL (8.6-10.3) L 07/28/17 03:33 Venous Ioniz Calcium 0.95 mmol/L (1.15-1.35) L 07/28/17 07:38 Direct Bilirubin 0.4 mg/dL (0.0-0.2) H 07/28/17 03:33 Alkaline Phosphatase 319 Units/L (34-104) H 07/28/17 03:33 Serum Total Protein 5.5 g/dL (6.4-8.9) L 07/28/17 03:33 Globulin 1.7 g/dL (2.4-3.5) L 07/28/17 03:33 - Clinical Findings Intake & Output: Intake & Output 07/27/17 07/28/17 07/28/17 23:59 07:59 15:59 Intake Total 754 / 754 1264 / 1264 Output Total 207 / 207 1553 / 1553 2 / 2 Balance 547 / 547 -289 / -289 -2 / -2 Weight 133.6 kg Consult Discharge Plan - Plan Referrals: Yaa Sanderson, FIREWORKS ASSEMBLY SUPERVISOR [Primary Care Provider] - - Attending Attestation I examined this patient and my medical decision-making was reviewed with the Resident Physician. I agree with the documented findings, disposition and treatment plan as described except to the extent set forth below. Patient seen and examined. Labs, radiology, chart personally reviewed. Agree with resident's history and physical, assessment, plan with following comments: GOODWILL REPRESENTATIVE: Patient follows simple commands and she has been much more comfortable on Precedex, Pulmonary: Acceptable oxygenation and ventilation on noninvasive ventilation. She is continue to be at risk of possibility she may need invasive mechanical ventilation and due to her comorbidities palliative will be consulted. Cardiovascular: Patient remained in shock and requiring Levophed, however this has improved. GI: Nutrition per dietary and GI prophylaxis per routine Heme: DVT prophylaxis per routine ID: Continue antibiotics and plan to de-escalation. Awaiting infectious disease consultation Renal; urine out put and renal funtion reviewed and nephrology follow-up. Patient is on Rekha. Endorcine: blood glucose is monitored Lines: all lines checked and no evidence of infections Skin: skin care to prevent pressure ulcers per nursing routine care Overall prognosis is poor. <Marion Bolaños - Last Filed: 07/28/17 17:51> Date of Encounter: 07/28/17 Time of Encounter: 07:24 Assessment and Plan (1) Hypotension Current Visit: Yes Status: Acute Unclear etiology at this point. Likely cardiogenic with third-spacing. Other etiologies include, but less likely, sepsis. Blood cultures and lactate ordered. Systolic BPs in 60-70s prior to ICU Plan Continue Levophed with goal MAP >65 Continue to hold diuretics Qualifiers: Hypotension type: unspecified hypotension type Qualified Code(s): I95.9 - Hypotension, unspecified (2) Acute respiratory failure Current Visit: Yes Status: Acute Secondary to CHF exacerbation Currently tolerating BiPAP with O2 sats in high 90s Transferred to ICU for risk of worsening respiratory status with hypotension ABG shows Respiratory acidosis, likely acute in nature CXR on 07/27/17 shows worsening pulmonary edema with bilateral pleural effusions and bilateral opacities Plan Holding diuretics due to hypotension Plan for fluid removal in HD if able Continue BiPAP support with low threshold for intubation Continue Ceftriaxone Qualifiers: Respiratory failure complication: hypoxia and hypercapnia Qualified Code(s) : J96.01 - Acute respiratory failure with hypoxia; J96.02 - Acute respiratory failure with hypercapnia (3) CKD (chronic kidney disease) Current Visit: Yes Status: Chronic Acute renal failure on CKD stage III. Renal failure worsening despite holding diuretics, BUN > 130 with Cr 2.69 Nephro following Plan Hemodialysis per nephro Continue avoiding nephrotoxic agents, renal dosing when possible Qualifiers: Chronic kidney disease stage: stage 3 (moderate) Qualified Code(s): N18.3 - Chronic kidney disease, stage 3 (moderate) (4) Leg swelling Current Visit: Yes Status: Acute Likely chronic in nature d/t underlying CKD, chronic CHF, venous insufficiency Bilateral LE cellulitis. Received clindamycin x 5 days. Diuretics being held d/t worsening renal failure Compression wraps bilateral LE Plan Continue to hold diuretics Continue compression wraps Expect decrease in swelling with HD (5) Cellulitis Current Visit: Yes Status: Acute Clindamycin stopped after 5 days Plan Started Rocephin today ID consulted, appreciate recommendations Qualifiers: Site of cellulitis: extremity Site of cellulitis of extremity: lower extremity Laterality: unspecified laterality Qualified Code(s): L03.119 - Cellulitis of unspecified part of limb (6) DMII (diabetes mellitus, type 2) Current Visit: Yes Status: Chronic Continue SSI and basal insulin Qualifiers: Diabetes mellitus nursing home insulin use: with nursing home use Diabetes mellitus complication status: with kidney complications Diabetes mellitus complication detail: with chronic kidney disease Chronic kidney disease stage : stage 3 (moderate) Qualified Code(s): E11.22 - Type 2 diabetes mellitus with diabetic chronic kidney disease; N18.3 - Chronic kidney disease, stage 3 ( moderate); 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.4 - 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 (7) Atrial fibrillation Current Visit: Yes Status: Chronic Afib with RVR Metoprolol currently being held d/t hypotension Eliquis at home for anticoagulation Plan Continue to hold Eliquis while receiving continuous renal replacement therapy Likely resume metoprolol with correction of hypotension Qualifiers: Atrial fibrillation type: paroxysmal Qualified Code(s): I48.0 - Paroxysmal atrial fibrillation (8) Dementia Current Visit: Yes Status: Chronic Qualifiers: Dementia type: Alzheimer's disease Alzheimer's disease onset: late-onset Dementia behavioral disturbance: with behavioral disturbance Qualified Code(s) : G30.1 - Alzheimer's disease with late onset; F02.81 - Dementia in other diseases classified elsewhere with behavioral disturbance (9) DVT prophylaxis Current Visit: Yes Status: Acute 5,000 units subcutaneous Heparin Q12H Subjective Principal diagnosis: acute on chronic kidney disease Interval history: Pt seen and examined this morning at bedside. She is more responsive today, opens eyes spontaneously and moans. However, still not following commands. Pt was started on Precedex yesterday evening for sedation. Objective PUL Vital signs: Last Vital Signs Temp 97.6 F 07/28/17 04:00 Pulse 89 07/28/17 07:00 Resp 14 07/28/17 07:00 BP 101/38 07/28/17 07:00 Pulse Ox 100 07/28/17 07:00 General: obtunded, mild distress HEENT: head normocephalic/atraumatic, PERRL, sclera anicteric Neck: right-sided HD cath connected to CRRT Cardio: irregular rhythm, distant heart sounds, +S1/S2 Pulm: diminished airflow, shallow respirations on BiPAP, no wheezing Abdomen: soft, nontender, BS+, no rebound, rigidity, guarding, distention Extremities: LE edema worse on left, bilat LE pressure wraps, no cyanosis, clubbing, cool Neuro: more responsive, opens eyes spontaneously, doesn't follow commands, moves extremities spontaneously Skin: visible skin is clean, dry, intact Results - Laboratory Findings CBC and BMP: 07/28/17 03:33 07/28/17 03:33 ABG ABG pH 7.23 pH Units (7.32-7.45) L 07/27/17 11:08 ABG pCO2 68 mmHg (35-45) H 07/27/17 11:08 ABG pO2 59 mmHg (85-104) L 07/27/17 11:08 ABG O2 Saturation 84 % (95-98) L 07/27/17 11:08 PT/INR, D-dimer PT 15.3 Seconds (9.4-12.1) H 07/27/17 11:13 Abnormal lab findings: Abnormal lab results WBC 26.8 K/mcL (4.3-11.1) H D 07/28/17 03:33 RBC 3.65 M/mcL (3.82-4.97) L 07/28/17 03:33 Hgb 10.5 g/dL (11.5-15.4) L 07/28/17 03:33 MCHC 29.6 g/dL (31.6-35.5) L 07/28/17 03:33 RDW 15.1 % (11.5-14.5) H 07/28/17 03:33 Band Neutrophils % 6.0 % (0-4) H 07/28/17 03:33 Neutrophils # 24.1 K/mcL (1.6-8.9) H 07/28/17 03:33 Monocytes # 1.6 K/mcL (0.0-1.3) H 07/28/17 03:33 Nucleated RBCs/100 WBC 0.6 /100 WBC (0) H 07/28/17 03:33 Hypochromasia Present (Not Present) A 07/24/17 05:45 PT 15.3 Seconds (9.4-12.1) H 07/27/17 11:13 APTT 38.4 Seconds (26.0-36.0) H 07/28/17 03:33 ABG pH 7.23 pH Units (7.32-7.45) L 07/27/17 11:08 ABG pCO2 68 mmHg (35-45) H 07/27/17 11:08 ABG pO2 59 mmHg (85-104) L 07/27/17 11:08 ABG HCO3 28 mEq/L (21-27) H 07/27/17 11:08 ABG Total CO2 31 mEq/L (20-26) H 07/27/17 11:08 ABG O2 Saturation 84 % (95-98) L 07/27/17 11:08 VBG pH 7.19 pH Units (7.32-7.42) L* 07/27/17 17:59 BUN 124 mg/dL (8-23) H 07/28/17 03:33 Creatinine 2.67 mg/dL (0.60-1.20) H 07/28/17 03:33 Est GFR ( Amer) 21 (> 60) L 07/28/17 03:33 Est GFR (Non-Af Amer) 17 (> 60) L 07/28/17 03:33 BUN/Creatinine Ratio 46 (6-26) H 07/28/17 03:33 Glucose 302 mg/dL (70-105) H 07/28/17 03:33 POC Glucose 339 mg/dL (70-99) H 07/27/17 20:09 Hemoglobin A1c 9.2 % (-5.6) H 07/23/17 05:09 Calculated Osmolality 339 (280-300) H 07/28/17 03:33 Calcium 8.2 mg/dL (8.6-10.3) L 07/28/17 03:33 Venous Ioniz Calcium 0.95 mmol/L (1.15-1.35) L 07/28/17 06:25 Direct Bilirubin 0.4 mg/dL (0.0-0.2) H 07/28/17 03:33 Alkaline Phosphatase 319 Units/L (34-104) H 07/28/17 03:33 Serum Total Protein 5.5 g/dL (6.4-8.9) L 07/28/17 03:33 Globulin 1.7 g/dL (2.4-3.5) L 07/28/17 03:33 - Clinical Findings Intake & Output: Intake & Output 07/27/17 07/27/17 07/28/17 15:59 23:59 07:59 Intake Total 240 / 240 754 / 754 1264 / 1264 Output Total 100 / 100 207 / 207 1553 / 1553 Balance 140 / 140 547 / 547 -289 / -289 Weight 132.4 kg 133.6 kg - VTE Documentation of Mechanical Device: Graduated compression elastic hosiery
[2017-07-28 07:41] LABS: VBG Ionized Calcium 0.95 mmol/L (1.15-1.35)
[2017-07-28] MEDS: Insulin LISPRO 300 UNITS/3 ML VIAL SQ SCH ×5 (07:43→23:15)
[2017-07-28] MEDS: Aspirin Enteric Coated 81 MG Tablet PO SCH (07:48)
[2017-07-28] MEDS: Carbidopa/Levodopa 25/100 TABLET PO SCH (07:49)
[2017-07-28] MEDS: Ascorbic Acid 500 MG TABLET PO SCH (07:49)
[2017-07-28] MEDS: Insulin DETEMIR 100 UNIT/ML X5UNITS SQ SCH ×3 (07:57→20:35)
[2017-07-28] MEDS ORDERED: Pantoprazole 40 MG VIAL IVP ONE (08:26)
[2017-07-28] MEDS ORDERED: Insulin DETEMIR 100 UNIT/ML X5UNITS SQ SCH (09:00)
--- NOTE | 2017-07-28 09:25 | Nephrology Progress Note ---
Date of Encounter: 07/28/17 Time of Encounter: 09:23 - Assessment and Plan (1) CKD (chronic kidney disease) Current Visit: Yes Status: Chronic Continue to avoid nephrotoxins and renal dose all medications. CRRT CVVH in progress. Started last night around 2129 still the same martha set. Average urine output is 5 or less an hour. Palliative has been consulted. Continues to be on Bipap, tolerating well. Qualifiers: Chronic kidney disease stage: stage 3 (moderate) Qualified Code(s): N18.3 - Chronic kidney disease, stage 3 (moderate) (2) Cellulitis Current Visit: Yes Status: Acute Per surgery/primary team. Qualifiers: Site of cellulitis: extremity Site of cellulitis of extremity: lower extremity Laterality: unspecified laterality Qualified Code(s): L03.119 - Cellulitis of unspecified part of limb (3) Chronic venous stasis dermatitis Current Visit: Yes Status: Chronic Per primary team. (4) DMII (diabetes mellitus, type 2) Current Visit: Yes Status: Chronic A1C has been as high as 9 in the past. Currently serum glucose is around 302, despite sliding scale insulin. Spoke with Kathe, ICU pharmacist and insulin has been increased. Qualifiers: Diabetes mellitus prison insulin use: with indirect sales representative use Diabetes mellitus complication status: with kidney complications Diabetes mellitus complication detail: with chronic kidney disease Chronic kidney disease stage : stage 3 (moderate) Qualified Code(s): E11.22 - Type 2 diabetes mellitus with diabetic chronic kidney disease; N18.3 - Chronic kidney disease, stage 3 ( moderate); Z79.4 - prison (current) use of insulin Subjective Principal diagnosis: acute on chronic kidney disease Interval history: Pt seen and examiend. Pt was transferred to ICU and started on CVVH. Is on Bipap, tolerating well. Objective - Vital Signs Vital signs: Vital Signs Temp Pulse Resp BP Pulse Ox 07/28/17 08:00 93.5 F L 89 15 121/76 100 07/28/17 07:00 89 14 101/38 100 07/28/17 06:00 95 15 96/67 100 07/28/17 05:00 97 14 123/72 100 07/28/17 04:20 16 114/58 100 07/28/17 04:00 97.6 F 81 12 95/70 100 07/28/17 03:00 115 17 111/88 100 07/28/17 02:00 105 22 112/65 100 07/28/17 01:00 116 19 113/62 99 07/28/17 00:10 109 07/28/17 00:07 23 124/88 99 07/28/17 00:00 98.7 F 109 23 124/88 99 07/27/17 23:00 135 28 73/44 97 07/27/17 22:00 131 21 77/67 99 07/27/17 21:00 128 28 70/63 99 07/27/17 20:40 19 79/60 98 07/27/17 20:00 98.4 F 152 26 117/83 97 07/27/17 19:00 134 25 93/76 97 07/27/17 18:00 123 19 79/66 97 07/27/17 17:00 126 13 91/54 97 07/27/17 16:19 118 17 94/56 95 07/27/17 15:37 113 16 89/27 95 07/27/17 15:01 11 89/54 94 07/27/17 14:25 96.7 F L 101 19 69/46 93 07/27/17 12:19 120 12 93/54 07/27/17 11:48 97.5 F L 117 20 70/48 93 07/27/17 11:40 15 70/48 92 07/27/17 11:37 70/48 07/27/17 11:25 22 92 Intake and Output 07/27/17 07/28/17 07/28/17 23:59 07:59 15:59 Intake Total 754 / 754 1264 / 1264 Output Total 207 / 207 1553 / 1553 2 / 2 Balance 547 / 547 -289 / -289 -2 / -2 Intake: IV Fluids 754 / 754 1264 / 1264 Calcium Chloride 4,000 MG In 0. 100 / 100 405 / 405 9 % Sodium Chloride 1,000 ML @ 40 mls/hr CRRT CONT [facility] Rx#: [id number] Flexbumin 25 gm In 100 ml @ 60 400 / 400 mls/hr IVC .Q1H40M [facility] Rx#: [id number] PRECEDEX Premix 400 mcg In 100 100 / 100 ml @ 0.3 MCG/KG/HR 9.93 mls/hr IVC .Q10H5M PRN Rx#:[id number] Levophed 4 MG In Dextrose 5% 254 / 254 429 / 429 250 ML @ 5 MCG/MIN 19.05 mls/hr IVC [facility] Rx#:[id number] Calcium Chloride 178 MG In 0 / 0 PrismaSATE BGK 2/0 5,000 ML @ 1000.356 mls/hr IVPB CONT [facility] Rx#:[id number] Calcium Gluconate 1,000 MG In 0 330 / 330 .9 % Sodium Chloride 100 ML @ 220 mls/hr IVPB ONCE PRN Rx#: [id number] Output: Martha 139 / 139 1472 / 1472 Catheter 68 / 68 81 / 81 2 / 2 Other: Weight 133.6 kg Blood Glucose* 339 Patient Weight 07/28/17 23:59 Weight 133.6 kg - General Appearance General appearance: Present: chronically ill, fatigue, frail EENT: Present: ATNC Respiratory: Present: clear Cardiology: Present: edema (+1 BLE. Drsg C/D/I.) Dialysis Vascular Access: Venous Catheter (DRSG C/D/I.) Gastrointestinal: Present: normoactive bowel sounds, no tenderness, no guarding Integumentary: Present: no rash, warm and dry Neurologic: Present: confused Psychiatric: Present: mood/affect appropriate - Lab 07/28/17 03:33 07/28/17 03:33 Most recent lab results ABG pH 7.23 pH Units (7.32-7.45) L 07/27/17 11:08 ABG pCO2 68 mmHg (35-45) H 07/27/17 11:08 ABG pO2 59 mmHg (85-104) L 07/27/17 11:08 ABG HCO3 28 mEq/L (21-27) H 07/27/17 11:08 ABG O2 Saturation 84 % (95-98) L 07/27/17 11:08 Calcium 8.2 mg/dL (8.6-10.3) L 07/28/17 03:33 Phosphorus 4.5 mg/dL (2.7-4.5) 07/28/17 03:33 Magnesium 2.3 mg/dL (1.6-2.6) 07/28/17 03:33 - VTE Documentation of Mechanical Device: Graduated compression elastic hosiery Consult Discharge Plan - Plan Referrals: Yaa Sanderson, BILLY [Primary Care Provider] -
[2017-07-28 10:10] LABS: VBG Ionized Calcium 0.98 mmol/L (1.15-1.35)
--- NOTE | 2017-07-28 11:13 | Infectious Disease Consult ---
Date of Encounter: 07/28/17 Time of Encounter: 11:08 Assessment and Plan (1) Shock Status: Acute Assessment and plan: Sepsis vs. Cardiogenic vs. other. The patient does have three SIRS criteria with ELAINE, altered mental status, and elevated LFts. Possible source cellulitis of the LLE. WBC worse this morning. She continues to have tachycardia and hypotension requiring vasopressors. She developed hypothermia this morning. Blood cultures ordered 07/27/17 are pending x 2 sets. Check peripheral smear. Check ESR and CRP. Check amylase and lipase given the patient's elevated LFTs. Repeat blood cultures x 2 sets now. Check CK level - ? possible vasculitis. Check procalcitonin. Get complete urinalysis and culture. Get CT of the LLE and abdomen/pelvis without IV contrast. Discontinue Rocephin. Start Daptomycin 6mg/kg IV Q48H, dosed for CRRT. Start Cefepime 2 grams IV Q12H, dosed for CRRT. Duration of treatment depends on the clinical picture. Monitor CK levels and renal function and dose-adjust antibiotics. (2) Cellulitis Status: Acute Assessment and plan: Location: LLE and possible right lower abdomen. Causative organism unclear. Several open lesions noted to the BLE, but none of them are actively draining pus. Blanchable erythema noted surrounding the lesions. Was treated with 5 days of IV Clindamycin prior to being transitioned to IV Rocephin. Continue wound care per the surgery and wound care teams. Discontinue Rocephin. Start Daptomycin 6mg/kg IV Q48H, dosed for CRRT. Start Cefepime 2 grams IV Q12H, dosed for CRRT. Check baseline CK level. Duration of treatment depends on the clinical picture. Monitor renal function and CK levels and dose-adjust antibiotics. Qualifiers: Qualified Code(s): L03.119 - Cellulitis of unspecified part of limb (3) Acute kidney injury Status: Acute Assessment and plan: Etiology unclear. Patient developed oliguric ELAINE after admission. Nephrology consulted and following. CRRT initiated. Will avoid nephrotoxins as able. Dose-adjust antibiotics as needed. (4) Pulmonary edema Status: Acute Assessment and plan: CXR 07/27/17 showed worsening pulmonary edema. Currently requiring BIPAP. Management per the pulmonary team. Qualifiers: Qualified Code(s): J81.0 - Acute pulmonary edema (5) Acute respiratory failure Status: Acute Assessment and plan: Likely secondary to pulmonary edema. Currently on BIPAP. Management per the pulmonary team. Qualifiers: Qualified Code(s): J96.01 - Acute respiratory failure with hypoxia; J96.02 - Acute respiratory failure with hypercapnia (6) Altered mental status Status: Acute Assessment and plan: Likely multifactorial: sepsis + baseline dementia + respiratory acidosis + medications. Continue to monitor closely. Qualifiers: Qualified Code(s): R41.0 - Disorientation, unspecified (7) Elevated liver enzymes Status: Acute Assessment and plan: Etiology unclear. Shock liver? Improved. Abdominal exam benign. Get CT of the abdomen and pelvis without contrast. Check amylase and lipase. Continue to trend. (8) Chronic venous stasis dermatitis Status: Chronic Assessment and plan: Location: BLE. Multiple venous stasis ulcers noted. Management per the surgery team's recommendations. (9) Dementia Status: Chronic Qualifiers: Qualified Code(s): G30.1 - Alzheimer's disease with late onset; F02.81 - Dementia in other diseases classified elsewhere with behavioral disturbance (10) Atrial fibrillation Status: Chronic Qualifiers: Qualified Code(s): I48.0 - Paroxysmal atrial fibrillation (11) DMII (diabetes mellitus, type 2) Status: Chronic Assessment and plan: Uncontrolled. HgbA1C 9.2%. Recommend aggressive glucose monitoring and control to promote wound healing and prevent re-infection. 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 Godwin is a 77 year old female with a past medical history of diabetes, peripheral neuropathy, chronic kidney disease, CHF, CAD, A. fib, cardiomyopathy , Parkinson's dementia, and hypothyroidism. The patient was admitted to the hospital July 22 for CHF exacerbation. We are consulted July 28 for further recommendations for left lower extremity cellulitis. Briefly, the patient is a 77-year-old female with past medical history as stated above. The patient's altered mental status precludes her ability to provide me with any information regarding the events leading up to her hospitalization, therefore, most of the information is obtained from the medical record and from nursing staff. Apparently, the patient was transferred to hold her emergency department for bilateral lower extremity swelling. Lab reports from [facility] revealed a normal white blood cell count with a serum creatinine of 1.55. Urinalysis was negative. Her LFTs were elevated with alkaline phosphatase of 568, AST of 143 and normal ALTs. She is also noted be hyperglycemic. Chest x-ray showed findings consistent with moderate CHF. She was sensibly transferred here for further evaluation. Upon arrival here, the patient is afebrile hemodynamically stable. Laboratory studies again revealed a normal white blood cell count with a mildly elevated serum creatinine of 1.39. LFTs were still elevated, but mildly improved. The patient was noted to have markedly swollen bilateral lower extremities with several bullous lesions. She was started on IV clindamycin and was evaluated by the general surgery team who recommended compression dressings and wound care consult. She did have bilateral lower extremity NORMA studies that showed mild occlusive disease bilaterally. She had a transthoracic echocardiogram showed an EF of 55%. Nephrology was consulted to assist with her abnormal renal function. She subsequently developed oliguric acute renal failure and was started on CRRT via a temporary dialysis catheter that was inserted on July 27. Prior to insertion of a temporary dialysis catheter, the patient became hypotensive, tachycardic, hypoxic. She was given an IV fluid bolus which temporarily improved her hypertension, but was ultimately started on IV Levaquin, which continues. She had a repeat chest x-ray that showed worsening pulmonary edema. She was placed on BiPAP and an ABG revealed respiratory acidosis. She was subsequently transferred to the intensive care unit for further evaluation and treatment. Today, the patient has leukocytosis with 6% bands. Her renal function is stabilized. She is on 2 g of Levophed at this time. Her LFTs are trending down. She was noted to be hypothermic this morning and a bear hugger was applied. IV clindamycin was discontinued and patient was started on IV Rocephin. We have been asked to evaluate and make further recommendations. During my exam today, the patient is encephalopathic. Apparently, she has baseline dementia, this is worse than her baseline. She is unable to provide me with any review of systems information. CC: Josefa Nash MD Past Med Surg Social Fam HX - Past Medical History Source: old records reviewed, nursing notes reviewed Medical history: CHF, diabetes, renal disease Additional medical history: blood clots but unsure where - Social History Smoking Status: Never smoker - Family History Father History Unknown: Yes Infectious Disease-CN:Meds Apixaban [Eliquis] 2.5 mg PO BID 07/23/17 [History] Ascorbate Calcium [Vitamin C] 500 mg PO DAILY 07/23/17 [History] Aspirin Enteric Coated [Aspirin EC] 81 mg PO DAILY 07/23/17 [History] Carbidopa/Levodopa [Carbidopa-Levo 25-100 mg Odt] 1 tab PO QID 07/23/17 [History ] Furosemide [Lasix] 40 mg PO BID 07/23/17 [History] Insulin ASPART [Novolog] 2 - 15 unit SQ TIDWM 07/23/17 [History] Insulin Glargine,Hum.rec.anlog [Lantus Solostar] 45 unit SQ HS 07/23/17 [History ] Ipratropium/Albuterol Neb [Duoneb] 3 ml IH Q6HR PRN 07/23/17 [History] Levothyroxine [Synthroid] 112 mcg PO 0630 07/23/17 [History] Lovastatin 40 mg PO BID 07/23/17 [History] Metoprolol [Lopressor] 25 mg PO BID 07/23/17 [History] Polyethylene Glycol 3350 [MiraLAX] 17 gm PO DAILY 07/23/17 [History] Polyvinyl Alcohol [Artificial Tears] 2 drop OP BID PRN 07/23/17 [History] Potassium Chloride [K-Tab ER] 10 meq PO DAILY 07/23/17 [History] 3 Allergy/AdvReac Type Severity Reaction Status Date / Time No Known Allergies Allergy Verified 07/23/17 00:19 ROS unobtainable: due to mental status Exam - Constitutional Vitals: Temp Pulse Resp BP Pulse Ox 93.5 F L 80 11 121/69 100 07/28/17 08:00 07/28/17 09:00 07/28/17 09:00 07/28/17 09:00 07/28/17 09:00 General appearance: morbidly obese, no acute distress, no febrile - Head Head exam: Present: atraumatic, normal inspection, normocephalic - Eye Eye exam: Present: normal appearance, PERRL, sclera anicteric Pupils: Present: normal accommodation - ENT ENT exam: Present: mucous membranes dry - Neck Neck exam: Present: normal inspection Additional comments: Temporary dialysis catheter noted to the right neck with transparent dressing C/ D/I, currently accessed for CRRT. - Respiratory Respiratory exam: Present: wheezes. Absent: rales, respiratory distress, rhonchi Additional comments: O2 via BIPAP. - Cardiovascular Cardiovascular exam: Present: +S1, +S2, tachycardia. Absent: irregular rhythm - GI/Abdominal GI/Abdominal exam: Present: distended (obese), normal bowel sounds, soft. Absent: tenderness Additional comments: Ellis catheter noted draining scant amount of dark yellow urine. Erythema noted to the underside of the patient's pannus on the right side. Patient cries out in pain when attempting to examine the area. Area of erythema noted to the right lower abdomen with tenderness and warmth noted on palpation. - Extremities Exam Extremities exam: Present: tenderness (BLE). Absent: joint swelling, pedal edema Additional comments: Erythema surrounding multiple lesions on the LLE noted. RLE with two lesions, without erythema noted. - Neurological Exam Neurological exam: Present: altered - Skin Skin exam: Present: dry, intact, pallor. Absent: warm (cool) Infectious Disease CN: Results - Labs CBC & Chem 7: 07/29/17 03:27 07/29/17 03:27 Serology: Serology 07/27/17 Range/Units 10:14 Hep Bs Antigen Nonreactive (Nonreactive) Hep Bs Antibody 0.00 mIU/mL - VTE Documentation of Mechanical Device: Graduated compression elastic hosiery Consult Discharge Plan - Plan Referrals: Yaa Sanderson CNP [Primary Care Provider] - - Attending Attestation I examined this patient and my medical decision-making was reviewed with the Resident Physician. I agree with the documented findings, disposition and treatment plan as described except to the extent set forth below. This is an addendum to original report dictated by Kim Krueger CNP. Please refer to Teresa george for full details. Patient is a 77-year-old woman with past medical history mentioned below was admitted to the hospital on July 22 for CHF exacerbation. We are consulted today for septic shock and left lower extremity cellulitis. Patient presenting with a very complicated clinical picture. Initially she came in with shortness of breath and bilateral lower extremity edema. All the information was taken from medical records as the patient unable to give us any history. Patient was noted to be in acute kidney injury elevated LFTs and alkaline phosphatase. Patient also had congestive heart failure picture with pulmonary edema. Patient went into septic shock and transferred to the ICU. Patient is currently on a BiPAP machine and continues to require pressors but decreased from 20 mcg/h to 2 g per hour. Patient was also started on continuous dialysis. Physical exam is limited. Skin on the right lower extremity is sloughing with some blanching. There is no lesions on her body anywhere else on her face. No lesions on the lips. No stomatitis or oral lesions. Patient is hypothermic but she is on Synthroid. Assessment and plan: Septic shock versus cardiogenic shock Acute kidney injury requiring continuous dialysis Cellulitis right lower extremity Pulmonary edema with acute respiratory failure not intubated yet: Echo shows ejection fraction of 55% Hypothyroidism Baseline dementia Hypothermic Recommendations: I am not sure what is causing the clinical picture of the patient. By definition the patient does have septic shocklike picture with hypothermia and hypotension tachycardia and leukocytosis with bands. No obvious source of infection noted. The right lower extremity really does not reveal obvious cellulitis but there is a rash which could be just venous stasis. Patient unable to give me any review of system. I discussed along with Dr. lucio. I think at this point we need to order a large battery of tests to make sure the patient has no infection. Check blood cultures 3 Check procalcitonin Check complete urinalysis looking for proteinuria casts Get a CT abdomen and pelvis and CT right lower extremity Get a peripheral smear looking for toxic granules Chest x-ray showed no pneumonia Consider checking respiratory infectious panel Check ESR and CRP Check CK level Patient is only on Rocephin, I will broaden the antibiotics to daptomycin and cefepime.
[2017-07-28] MEDS: Levothyroxine Sodium 100 MCG VIAL IVP SCH (11:15)
[2017-07-28] MEDS: *HR* Heparin 5,000 UNIT/ML VIAL SQ SCH ×2 (11:32→20:09)
[2017-07-28] MEDS: Calcium Chloride 4,000 MG in 0.9 % Sodium Chloride 1,000 ML CRRT SCH ×2 (11:52→23:31)
--- NOTE | 2017-07-28 12:06 | Palliative - Consult Note ---
Date of Encounter: 07/28/17 Time of Encounter: 10:30 - Assessment and Plan (1) Cellulitis Current Visit: Yes Status: Acute Assessment and plan: Patient currently receiving Ceftriaxone. WBC increased from 16.2 to 26.8 today. Infectious Disease consulted. Wound care treating BLE wounds. Qualifiers: Site of cellulitis: extremity Site of cellulitis of extremity: lower extremity Laterality: unspecified laterality Qualified Code(s): L03.119 - Cellulitis of unspecified part of limb (2) DMII (diabetes mellitus, type 2) Current Visit: Yes Status: Chronic Assessment and plan: Patient currently receiving insulin coverage for elevated blood glucose readings. Qualifiers: Diabetes mellitus fci insulin use: with fci use Diabetes mellitus complication status: with kidney complications Diabetes mellitus complication detail: with chronic kidney disease Chronic kidney disease stage : stage 3 (moderate) Qualified Code(s): E11.22 - Type 2 diabetes mellitus with diabetic chronic kidney disease; N18.3 - Chronic kidney disease, stage 3 ( moderate); Z79.4 - retirement (current) use of insulin (3) CKD (chronic kidney disease) Current Visit: Yes Status: Chronic Assessment and plan: Patient a known patient of Dr. Tidwell. Has also been receiving Rekha. BUN 124, Cr 2.67. Nephrology following, continue to follow their recommendations. Qualifiers: Chronic kidney disease stage: stage 3 (moderate) Qualified Code(s): N18.3 - Chronic kidney disease, stage 3 (moderate) (4) Chronic venous stasis dermatitis Current Visit: Yes Status: Chronic Assessment and plan: Wound care consult and recommendations appreciated. Wounds are currently wrapped during assessment. (5) Dementia Current Visit: Yes Status: Chronic Qualifiers: Dementia type: Alzheimer's disease Alzheimer's disease onset: late-onset Dementia behavioral disturbance: with behavioral disturbance Qualified Code(s) : G30.1 - Alzheimer's disease with late onset; F02.81 - Dementia in other diseases classified elsewhere with behavioral disturbance (6) Acute respiratory failure Current Visit: Yes Status: Acute Assessment and plan: Patient is currently on BiPAP. Continue to follow Pulmonary team recommendations for management. Last ABG yesterday. Family is ok with short term intubation if needed. Qualifiers: Respiratory failure complication: hypoxia and hypercapnia Qualified Code(s) : J96.01 - Acute respiratory failure with hypoxia; J96.02 - Acute respiratory failure with hypercapnia (7) Goals of care, counseling/discussion Current Visit: Yes Status: Acute Assessment and plan: Called patient's daughter to request meeting for evaluation of goals of care. Plan to meet at 2 pm per daughter's request. Notified Dr. Kline of requested time of meeting, will attempt to attend. Conducted family meeting with Patient's daughter, July ([phone]). Patient's daughter was given updated goals with Nephrology, Pulmonary, Internal Medicine, and Infectious Disease note reviews. Patient's daughter desires for patient to continue to receive aggressive treatment including Intubation short term if deemed necessary. Patient's CODE STATUS changed to DNRCCA. Patient's daughter requests to be kept up to date with illness trajectory. Patient's daughter informed display card writer that she would not want patient to have a tracheostomy or be ventilator dependent. Notified Dr. Kline of goals of care discussion results. (8) Pain Current Visit: Yes Status: Acute Assessment and plan: Patient yelling out in pain. ICU team ordered Fentanyl IVP for pain control. Will continue to monitor for improved pain control. Palliative-CN HPI - Data of Consult Patient: new to practice Consult date: 07/28/17 Requesting Physician: Josefa Nash MD Primary Care Provider: Yaa Sanderson CNP - Consult Narrative Palliative Care/Comfort Measures: Palliative care Reason for consult: Goals of care discussion History of present illness: Ms. Godwin is a 77 year old female arrived to [facility] on 07/22/17 as transfer from [facility] related to BLE edema/CHF. Patient admitted for leg swelling, cellulitis, DMII, and CKD. Patient is known patient of Dr. Tidwell. Surgery consulted performed, recommend elevation of legs above heart level and Bilateral DEAN wraps with curlex, patient already receiving clindamycin. Initial EKG completed. Nephrology consulted, recommended gentle hydration. Patient admitted and medically managed by ICU team for: leg swelling, cellulitis , DMII, CKD, Dementia, AFib, Chronic venous stasis dermatitis, and hypothyroidism. LE Arterial Physiologic Study performed. Wound care consulted. discussion with Nephrology and patients daughter regarding ELECTRON BE[employer] MACHINE WELDER SETTER. Central line placed on 07/27/17. Chest xray performed showing: confirmation of CVL placement and Findings are concerning for worsening pulmonary edema with worsening bilateral pleural effusions and bibasilar pulmonary opacities. Pulmonary consult completed; concern presented regarding code status as patient my need intubation in the future. ELECTRON BEAM MACHINE WELDER SETTER initiated. Patient then diagnosed with Acute respiratory failure and hypotension; pressor support initiated. Palliative care consulted 07/28/17 for goals of care discussion. PMH of DM, HTN, CAD s/p AICD, CABG, CKD, gout, OA, and morbid obesity. Patient resting in bed quietly on arrival for assessment. No family present at bedside. Spoke with Felisha CHARLES. Patient's daughter to come in to visit later today. Patient currently having ELECTRON BEAM MACHINE WELDER SETTER Rekha. Precedex and Norepinephrine infusing. Patient currently on BiPAP. Currently has barehugger on as AM temperature 93.5 F. Patient did not respond to verbal or tactile stimulation. Called patients daughter to set up family meeting, set for [address] Kline of pending family meeting. 1400: When returning to room for family meeting, patient is awake, alert and confused. Patient was unable to follow commands and noted to be yelling out in pain; unable to place on pain scale. ICU team ordered Fentanyl IVP for pain control. CC: Josefa Nash MD Past Med Surg Social Fam HX - Past Medical History Medical history: CHF, diabetes, renal disease Additional medical history: blood clots but unsure where - Social History Smoking Status: Never smoker - Family History Father History Unknown: Yes Medications and Allergies Apixaban [Eliquis] 2.5 mg PO BID 07/23/17 [History] Ascorbate Calcium [Vitamin C] 500 mg PO DAILY 07/23/17 [History] Aspirin Enteric Coated [Aspirin EC] 81 mg PO DAILY 07/23/17 [History] Carbidopa/Levodopa [Carbidopa-Levo 25-100 mg Odt] 1 tab PO QID 07/23/17 [History ] Furosemide [Lasix] 40 mg PO BID 07/23/17 [History] Insulin ASPART [Novolog] 2 - 15 unit SQ TIDWM 07/23/17 [History] Insulin Glargine,Hum.rec.anlog [Lantus Solostar] 45 unit SQ HS 07/23/17 [History ] Ipratropium/Albuterol Neb [Duoneb] 3 ml IH Q6HR PRN 07/23/17 [History] Levothyroxine [Synthroid] 112 mcg PO 30 07/23/17 [History] Lovastatin 40 mg PO BID 07/23/17 [History] Metoprolol [Lopressor] 25 mg PO BID 07/23/17 [History] Polyethylene Glycol 3350 [MiraLAX] 17 gm PO DAILY 07/23/17 [History] Polyvinyl Alcohol [Artificial Tears] 2 drop OP BID PRN 07/23/17 [History] Potassium Chloride [K-Tab ER] 10 meq PO DAILY 07/23/17 [History] 3 Allergy/AdvReac Type Severity Reaction Status Date / Time No Known Allergies Allergy Verified 07/23/17 00:19 ROS unobtainable: due to mental status Palliative Care-Exam - Constitutional Vitals: Temp Pulse Resp BP Pulse Ox 93.5 F L 89 16 101/54 100 07/28/17 08:00 07/28/17 10:00 07/28/17 10:00 07/28/17 10:00 07/28/17 10:00 General appearance: Present: morbidly obese, no acute distress. Absent: febrile - Head Head Exam: Present: atraumatic, normal inspection - Eye Eye exam: Present: normal appearance - ENT ENT exam: Present: mucous membranes dry, normal external ear exam - Neck Neck exam: Present: normal inspection - Respiratory Respiratory exam: Present: rhonchi. Absent: respiratory distress - Cardiovascular Cardiovascular exam: Present: RRR, +S1, +S2 - Expanded Cardiovascular Exam Peripheral pulses: 1+: Radial (L), Radial (R), Posterior Tibialis (L), Posterior Tibialis (R), Dorsalis Pedis (L) PM, Dorsalis Pedis (R) PM - GI/Abdominal Exam GI/Abdominal exam: Present: diminished bowel sounds - Rectal Rectal exam: Present: deferred - Catheter Type: Urethral (Ellis) - Expanded Neurological Exam Neurological exam expanded: Present: inattentive Patient oriented to: Absent: person, place, time Coma Scale Eye Opening: None Coma Scale Motor Response: Localizes to Pain Coma Scale Verbal Response: None Coma Scale Total: 7 - Psychiatric Psychiatric exam: Present: flat affect - Skin Skin exam: Present: dry. Absent: intact (BLE wounds, seen by wound care and wrapped.) Internal Medicine - CN: Reslt - Labs CBC & Chem 7: 07/28/17 03:33 07/28/17 03:33 Labs: Short CBC 06/05/18 Range/Units 03:33 WBC 26.8 H D (4.3-11.1) K/mcL Hgb 10.5 L (11.5-15.4) g/dL Hct 35.5 (35.3-44.9) % Plt Count 146 (140-400) K/mcL Neutrophils # 24.1 H (1.6-8.9) K/mcL BMP 07/27/17 07/28/17 17:32 03:33 Sodium 139 Potassium 4.3 Chloride 100 Carbon Dioxide 28 BUN 124 H Creatinine 2.67 H Glucose 302 H Calcium 9.2 8.2 L Liver Function 07/28/17 Range/Units 03:33 Total Bilirubin 0.7 (0.3-1.0) mg/dL Direct Bilirubin 0.4 H (0.0-0.2) mg/dL AST 13 (13-39) Units/L ALT 9 (7-52) Units/L Alkaline Phosphatase 319 H (34-104) Units/L Albumin 3.8 (3.5-5.7) g/dL - ABG Interpretation ABG results: ABG ABG pH 7.23 pH Units (7.32-7.45) L 07/27/17 11:08 ABG pCO2 68 mmHg (35-45) H 07/27/17 11:08 ABG pO2 59 mmHg (85-104) L 07/27/17 11:08 ABG O2 Saturation 84 % (95-98) L 07/27/17 11:08 PT/INR, D-dimer PT 15.3 Seconds (9.4-12.1) H 07/27/17 11:13 - Impressions Impressions Guidance Needle Placement Ultrasound 07/27/17 00:00 IMPRESSION: Temporary right IJ hemodialysis catheter placement. A postprocedure chest radiograph has been completed, which confirms appropriate position in the high right atrium. D/ / 07/27/2017 14:24:18 Kirby Arthur MD / Teagan Alarcon Interpreting Provider: Kirby Arthur MD Insertion Non-Tunneled Catheter 07/27/17 00:00 IMPRESSION: Temporary right IJ hemodialysis catheter placement. A postprocedure chest radiograph has been completed, which confirms appropriate position in the high right atrium. D/ / 07/27/2017 14:24:18 Kirby Arthur MD / Teagan Alarcon Interpreting Provider: Kirby Arthur MD Chest X-Ray 07/27/17 13:07 IMPRESSION: 1. Findings are concerning for worsening pulmonary edema. Worsening bilateral pleural effusions and bibasilar pulmonary opacities. Recommend radiographic follow-up to complete resolution. 2. Right IJ central venous catheter projects over the cavoatrial junction. No evidence of pneumothorax. D/ / 07/27/2017 14:25:41 Herve Chavez MD / Teagan Alarcon Interpreting Provider: Herve Chavez MD Consult Discharge Plan - Plan Referrals: Yaa Sanderson DUST COLLECTOR OPERATOR [Primary Care Provider] - Palliative Quality Palliative Quality: Screen for Code Status: Yes, Screen for Goals of Care: Yes, Screen for Pain: Yes, If Pain Regimen Started, Initiate Bowel Regimen: NA, Screen for Nausea/Vomitting: Yes Code Status: 07/22/17 20:15 Resuscitation Status: Active [RES] Routine Comment: Resuscitation Status: Full Code
[2017-07-28 13:31] LABS: VBG Ionized Calcium 1.05 mmol/L (1.15-1.35)
[2017-07-28] MEDS ORDERED: *HR* FentaNYL (PF) 100 MCG/2 ML VIAL IVP ONE (13:57)
[2017-07-28] MEDS ORDERED: *HR* FentaNYL (PF) 100 MCG/2 ML VIAL ONE (14:04)
[2017-07-28] MEDS: DAPTOmycin 800 MG in 0.9 % Sodium Chloride 100 ML IVPB SCH (15:18)
[2017-07-28 16:07] LABS: Amylase < 10 Units/L (29-103); C-Reactive Protein 237 mg/L (Less than 10); Lipase 11 Units/L (11-82)
[2017-07-28 17:26] LABS: VBG Ionized Calcium 0.98 mmol/L (1.15-1.35)
[2017-07-28] MEDS: *HR* FentaNYL (PF) 100 MCG/2 ML VIAL IVP PRN ×2 (17:32→22:23)
[2017-07-28] MEDS: Cefepime HCl 2,000 MG in Water for inj. (sterile) 20 ML 20 ML IVP SCH (17:35)
[2017-07-28] MEDS ORDERED: 0.9 % Sodium Chloride 250 ML ONE (20:22)
[2017-07-28 20:42] LABS: VBG Ionized Calcium 1.04 mmol/L (1.15-1.35)
[2017-07-28 22:51] LABS: VBG Ionized Calcium 0.98 mmol/L (1.15-1.35)
[2017-07-29] MEDS: Dexmedetomidine HCl 400 MCG/100 ML MLS IVC PRN ×4 (00:10→17:31)
[2017-07-29] MEDS: *HR* FentaNYL (PF) 100 MCG/2 ML VIAL IVP PRN ×2 (01:00→07:15)
[2017-07-29 01:09] LABS: VBG Ionized Calcium 1.01 mmol/L (1.15-1.35)
[2017-07-29 01:50] LABS: Bilirubin,Urine Negative (Negative); Blood,Urine Moderate (Negative); Clarity,Urine Cloudy (Clear); Color,Urine Yellow (Yellow); Glucose,Urine (UA) Normal (Normal); Ketones,Urine Negative (Negative); Leukocyte Esterase,Urine Large (Negative); Nitrite,Urine Negative (Negative); Protein,Urine 100 mg/dL (Neg-Trace); Specific Gravity,Urine 1.018 (1.010-1.025); Urobilinogen,Urine Normal (Normal)
[2017-07-29 01:51] LABS: Hyaline Casts,Urine None Seen per lpf (None-Few); Squamous Epithelial Cell,Urine Few per lpf (None-Few); WBC,Urine TNTC per hpf (0-3)
[2017-07-29 02:17] LABS: Bacteria,Urine Few per hpf (None-Few); Transitional Epi Cells,Urine Few per hpf (None-Few)
[2017-07-29] MEDS: PRISMASATE BGK IVPB SCH ×7 (03:30→22:54)
[2017-07-29] MEDS: CALCIUM CHLORIDE IVPB SCH ×7 (03:30→22:54)
[2017-07-29 03:43] LABS: VBG Ionized Calcium 1.06 mmol/L (1.15-1.35)
[2017-07-29 03:52] LABS: Basophils % 0.1 %; Eosinophils % 0.2 %; Hematocrit 35.2 % (35.3-44.9); Hemoglobin 10.8 g/dL (11.5-15.4); Immature Granulocytes % 3.4 % (0-4); Lymphocytes % 4.2 %; Mean Corpuscular HGB Conc 30.7 g/dL (31.6-35.5); Mean Corpuscular Hemoglobin 29.5 pg (28.0-33.3); Mean Corpuscular Volume 96.2 fL (83.0-100.0); Mean Platelet Volume 13.1 fL (9.4-12.4); Monocytes # 0.6 K/mcL (0.0-1.3); Monocytes % 2.6 %; Neutrophils # 20.6 K/mcL (1.6-8.9); Nucleated Red Blood Cells 0.3 /100 WBC (0); Platelet Count 111 K/mcL (140-400); Red Blood Count 3.66 M/mcL (3.82-4.97); Red Cell Distribution Width 15.4 % (11.5-14.5); Segmented Neutrophils % 89.5 %
[2017-07-29 03:56] LABS: Eosinophils # 0.1 K/mcL (0.0-0.6)
[2017-07-29 03:57] LABS: Calcium 9.5 mg/dL (8.6-10.3); Potassium 3.7 mEq/L (3.5-5.1)
[2017-07-29 04:37] LABS: Platelet Estimate Slight Decrease (Normal)
[2017-07-29] MEDS: *HR* Heparin 5,000 UNIT/ML VIAL SQ SCH ×2 (05:43→17:44)
[2017-07-29] MEDS: Cefepime HCl 2,000 MG in Water for inj. (sterile) 20 ML 20 ML IVP SCH ×2 (05:43→17:39)
[2017-07-29] MEDS: Insulin LISPRO 300 UNITS/3 ML VIAL SQ SCH ×4 (05:43→23:30)
[2017-07-29 05:57] LABS: VBG Ionized Calcium 0.99 mmol/L (1.15-1.35)
[2017-07-29] MEDS: Calcium Chloride 4,000 MG in 0.9 % Sodium Chloride 1,000 ML CRRT SCH ×3 (07:29→21:04)
--- NOTE | 2017-07-29 08:40 | Pulmonology Progress Note ---
<GabrielleCeci dias M - Last Filed: 07/29/17 10:52> Date of Encounter: 07/29/17 Objective PUL Vital signs: Last Vital Signs Temp 96.7 F L 07/29/17 08:00 Pulse 101 07/29/17 10:00 Resp 17 07/29/17 10:00 BP 112/47 07/29/17 10:00 Pulse Ox 100 07/29/17 10:00 Results - Laboratory Findings CBC and BMP: 07/29/17 03:27 07/29/17 03:27 ABG ABG pH 7.23 pH Units (7.32-7.45) L 07/27/17 11:08 ABG pCO2 68 mmHg (35-45) H 07/27/17 11:08 ABG pO2 59 mmHg (85-104) L 07/27/17 11:08 ABG O2 Saturation 84 % (95-98) L 07/27/17 11:08 PT/INR, D-dimer PT 15.3 Seconds (9.4-12.1) H 07/27/17 11:13 Abnormal lab findings: Abnormal lab results WBC 23.0 K/mcL (4.3-11.1) H 07/29/17 03:27 RBC 3.66 M/mcL (3.82-4.97) L 07/29/17 03:27 Hgb 10.8 g/dL (11.5-15.4) L 07/29/17 03:27 Hct 35.2 % (35.3-44.9) L 07/29/17 03:27 MCHC 30.7 g/dL (31.6-35.5) L 07/29/17 03:27 RDW 15.4 % (11.5-14.5) H 07/29/17 03:27 Plt Count 111 K/mcL (140-400) L 07/29/17 03:27 MPV 13.1 fL (9.4-12.4) H 07/29/17 03:27 Band Neutrophils % 6.0 % (0-4) H 07/28/17 03:33 Neutrophils # 20.6 K/mcL (1.6-8.9) H 07/29/17 03:27 Nucleated RBCs/100 WBC 0.3 /100 WBC (0) H 07/29/17 03:27 Platelet Estimate Slight Decrease (Normal) L 07/29/17 03:27 Hypochromasia Present (Not Present) A 07/24/17 05:45 ESR 21 mm/hr (0-15) H 07/28/17 15:35 PT 15.3 Seconds (9.4-12.1) H 07/27/17 11:13 APTT 38.4 Seconds (26.0-36.0) H 07/28/17 03:33 ABG pH 7.23 pH Units (7.32-7.45) L 07/27/17 11:08 ABG pCO2 68 mmHg (35-45) H 07/27/17 11:08 ABG pO2 59 mmHg (85-104) L 07/27/17 11:08 ABG HCO3 28 mEq/L (21-27) H 07/27/17 11:08 ABG Total CO2 31 mEq/L (20-26) H 07/27/17 11:08 ABG O2 Saturation 84 % (95-98) L 07/27/17 11:08 VBG pH 7.19 pH Units (7.32-7.42) L* 07/27/17 17:59 BUN 89 mg/dL (8-23) H 07/29/17 03:27 Creatinine 2.05 mg/dL (0.60-1.20) H 07/29/17 03:27 Est GFR ( Amer) 29 (> 60) L 07/29/17 03:27 Est GFR (Non-Af Amer) 24 (> 60) L 07/29/17 03:27 BUN/Creatinine Ratio 43 (6-26) H 07/29/17 03:27 Glucose 170 mg/dL (70-105) H 07/29/17 03:27 POC Glucose 159 mg/dL (70-99) H 07/29/17 05:41 Hemoglobin A1c 9.2 % (-5.6) H 07/23/17 05:09 Calculated Osmolality 327 (280-300) H 07/29/17 03:27 Venous Ioniz Calcium 1.05 mmol/L (1.15-1.35) L 07/29/17 08:47 Direct Bilirubin 0.4 mg/dL (0.0-0.2) H 07/28/17 03:33 Alkaline Phosphatase 319 Units/L (34-104) H 07/28/17 03:33 C-Reactive Protein 237 mg/L (Less than 10) H 07/28/17 15:35 Serum Total Protein 5.5 g/dL (6.4-8.9) L 07/28/17 03:33 Globulin 1.7 g/dL (2.4-3.5) L 07/28/17 03:33 Amylase < 10 Units/L (29-103) L 07/28/17 15:35 Urine Clarity Cloudy (Clear) A 07/29/17 01:26 Urine Protein 100 mg/dL (Neg-Trace) H 07/29/17 01:26 Urine Blood Moderate (Negative) H 07/29/17 01:26 Ur Leukocyte Esterase Large (Negative) H 07/29/17 01:26 Urine Microscopic RBC 5-15 per hpf (0-3) H 07/29/17 01:26 Urine Microscopic WBC TNTC per hpf (0-3) H 07/29/17 01:26 - Microbiology Findings Microbiology Findings: Microbiology, Last 48 Hours 07/27/17 17:32 Blood Culture - Preliminary Peripheral Venipuncture No growth. - Clinical Findings Intake & Output: Intake & Output 07/28/17 07/29/17 07/29/17 23:59 07:59 15:59 Intake Total 1370 / 1370 1480 / 1480 561 / 561 Output Total 942 / 942 1894 / 1894 782 / 782 Balance 428 / 428 -414 / -414 -221 / -221 Weight 132.9 kg Consult Discharge Plan - Plan Referrals: Yaa Sanderson, CELL ATTENDANT HELPER [Primary Care Provider] - - Attending Attestation I examined this patient and my medical decision-making was reviewed with the Resident Physician. I agree with the documented findings, disposition and treatment plan as described except to the extent set forth below. Patient seen and examined. Labs, radiology, chart personally reviewed. 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 Pulmonary: Acceptable oxygenation and ventilation on noninvasive ventilation and try BiPAP on and off Cardiovascular: Patient is requiring low dose Levophed which could be multifactorial. Patient has an echocardiogram and heart failure could be HFpEF. GI: Nutrition per dietary and GI prophylaxis per routine. Nutrition has been an issue since patient is on noninvasive ventilation and TPN will not be adequate option. Heme: DVT prophylaxis per routine ID: Continue antibiotics and plan to de-escalation and infectious disease follow -up. Renal; urine out put and renal funtion reviewed. Rekha per nephrology. Endorcine: blood glucose is monitored Lines: all lines checked and no evidence of infections Skin: skin care to prevent pressure ulcers per nursing routine care Overall prognosis is poor <Marion Bolaños - Last Filed: 07/29/17 13:57> Date of Encounter: 07/29/17 Time of Encounter: 08:40 Assessment and Plan (1) Shock Current Visit: Yes Status: Acute Etiology remains unclear--cardiogenic vs sepsis vs ? Suspected source: LLE cellulitis Hypothermic overnight (< 96.8 F) despite warming blanket Hypotension requiring vasopressors, Cr > 2.0, BiPAP for acute respiratory failure, lactate > 2.0 WBC improving, but remains elevated @ 23 Plan Continue Levophed to maintain MAP > 65 ID following Blood cultures 07/27/17 results pending Urine culture pending Day 2 on cefepime and daptomycin (2) Hypotension Current Visit: Yes Status: Acute Unclear etiology. Cardiogenic vs sepsis vs ? Labile BP and pulse, titrating with Levophed Today SBP range 70's-110's / DBP range 40's-70's CRRT day 2 Plan Continue Levophed with goal MAP > 65 Continue to hold diuretics Qualifiers: Hypotension type: unspecified hypotension type Qualified Code(s): I95.9 - Hypotension, unspecified (3) Acute respiratory failure Current Visit: Yes Status: Acute Likely secondary to CHF exacerbation Tolerating BiPAP with O2 sats in high 90s ABG showed respiratory acidosis, likely acute in nature 07/27/17 CXR shows worsening pulmonary edema with bilateral pleural effusions and bilateral opacities Family ok with short-term intubation, per goals of care meeting Plan BiPAP @ night Repeat CXR Continue holding diuretics d/t hypotension Trial without BiPAP this morning Qualifiers: Respiratory failure complication: hypoxia and hypercapnia Qualified Code(s) : J96.01 - Acute respiratory failure with hypoxia; J96.02 - Acute respiratory failure with hypercapnia (4) CKD (chronic kidney disease) Current Visit: Yes Status: Chronic Acute on CKD Stage III BUN/Cr improving since starting CRRT (89/2.05) UOP remains poor 07/27/17 started CRRT Plan Continue avoiding nephrotoxins and renal dose meds Nephro following Continue CRRT Qualifiers: Chronic kidney disease stage: stage 3 (moderate) Qualified Code(s): N18.3 - Chronic kidney disease, stage 3 (moderate) (5) Leg swelling Current Visit: Yes Status: Acute Likely chronic d/t underlying CKD, chronic CHF, venous insufficiency LLE cellulitis may be contributing--treated with IV clindamycin x 5 days then IV rocephin (both d/c'd) Diuretics being held d/t worsening renal failure Compression wraps bilateral LE Plan Antibiotic regimen as in "Cellulitis" Continue to hold diuretics Continue compression wraps, change daily (6) Cellulitis Current Visit: Yes Status: Acute LLE and possibly developing another area at RLQ Causative organism unclear Treated with IV clindamycin x5 days then switched to IV rocephin Plan ID following Wound care consulted Daptomycin and Cefepime (day 2) dosed for CRRT Blood culture results pending Qualifiers: Site of cellulitis: extremity Site of cellulitis of extremity: lower extremity Laterality: unspecified laterality Qualified Code(s): L03.119 - Cellulitis of unspecified part of limb (7) Atrial fibrillation Current Visit: Yes Status: Chronic Afib with RVR HR ranging 80's--130 bpm Eliquis at home for anticoagulation Metoprolol currently held d/t hypotension Plan Continue to hold Eliquis while getting CRRT Anticoagulated on heparin Continue holding metoprolol while hypotensive Qualifiers: Atrial fibrillation type: paroxysmal Qualified Code(s): I48.0 - Paroxysmal atrial fibrillation (8) DMII (diabetes mellitus, type 2) Current Visit: Yes Status: Chronic Improved glucose with increasing basal insulin to BID dosing Continue SSI and basal insulin Qualifiers: Diabetes mellitus senior care insulin use: with continuous churn buttermaker use Diabetes mellitus complication status: with kidney complications Diabetes mellitus complication detail: with chronic kidney disease Chronic kidney disease stage : stage 3 (moderate) Qualified Code(s): E11.22 - Type 2 diabetes mellitus with diabetic chronic kidney disease; N18.3 - Chronic kidney disease, stage 3 ( moderate); Z79.4 - jail (current) use of insulin (9) Dementia Current Visit: Yes Status: Chronic Qualifiers: Dementia type: Alzheimer's disease Alzheimer's disease onset: late-onset Dementia behavioral disturbance: with behavioral disturbance Qualified Code(s) : G30.1 - Alzheimer's disease with late onset; F02.81 - Dementia in other diseases classified elsewhere with behavioral disturbance (10) DVT prophylaxis Current Visit: Yes Status: Acute 5,000 units subcutaneous Heparin Q12H Subjective Principal diagnosis: acute on chronic kidney disease Interval history: Pt seen and examined this morning at bedside. Overnight pt required increase of precedex and wrist restraints for agitation and was crying out in pain, which seemed to be alleviated with fentanyl. Pt cries out in pain when trying to visualize possible cellulitis of right lower abdomen. Objective PUL Vital signs: Last Vital Signs Temp 96.7 F L 07/29/17 08:00 Pulse 88 07/29/17 08:00 Resp 12 07/29/17 08:00 BP 76/49 07/29/17 08:00 Pulse Ox 100 07/29/17 08:00 General: sedated on precedex, vital signs noted HEENT: head normocephalic/atraumatic, PERRL, oral mucous membranes dry Neck: right-sided HD cath connected to CRRT, dressing over cath is clean/dry/ intact Cardio: irregular rhythm, intermittently tachycardic, distant heart sounds, labile BP Pulm: diminished airflow bilateral, no wheezing, oxymask saturating well Abdomen: soft, BS+, tenderness on lifting abdominal panniculus to visualize potential site of cellulitis Extremities: LE edema worse on left, bilat LE pressure wraps C/D/I, no cyanosis Neuro: responds to painful stimuli, opens eyes spontaneously, doesn't follow commands, moves extremities spontaneously Skin: visible skin is clean, dry, intact, pallor; erythematous and tender area under RLQ panniculus Results - Laboratory Findings CBC and BMP: 07/29/17 03:27 07/29/17 03:27 ABG ABG pH 7.23 pH Units (7.32-7.45) L 07/27/17 11:08 ABG pCO2 68 mmHg (35-45) H 07/27/17 11:08 ABG pO2 59 mmHg (85-104) L 07/27/17 11:08 ABG O2 Saturation 84 % (95-98) L 07/27/17 11:08 PT/INR, D-dimer PT 15.3 Seconds (9.4-12.1) H 07/27/17 11:13 Abnormal lab findings: Abnormal lab results WBC 23.0 K/mcL (4.3-11.1) H 07/29/17 03:27 RBC 3.66 M/mcL (3.82-4.97) L 07/29/17 03:27 Hgb 10.8 g/dL (11.5-15.4) L 07/29/17 03:27 Hct 35.2 % (35.3-44.9) L 07/29/17 03:27 MCHC 30.7 g/dL (31.6-35.5) L 07/29/17 03:27 RDW 15.4 % (11.5-14.5) H 07/29/17 03:27 Plt Count 111 K/mcL (140-400) L 07/29/17 03:27 MPV 13.1 fL (9.4-12.4) H 07/29/17 03:27 Band Neutrophils % 6.0 % (0-4) H 07/28/17 03:33 Neutrophils # 20.6 K/mcL (1.6-8.9) H 07/29/17 03:27 Nucleated RBCs/100 WBC 0.3 /100 WBC (0) H 07/29/17 03:27 Platelet Estimate Slight Decrease (Normal) L 07/29/17 03:27 Hypochromasia Present (Not Present) A 07/24/17 05:45 ESR 21 mm/hr (0-15) H 07/28/17 15:35 PT 15.3 Seconds (9.4-12.1) H 07/27/17 11:13 APTT 38.4 Seconds (26.0-36.0) H 07/28/17 03:33 ABG pH 7.23 pH Units (7.32-7.45) L 07/27/17 11:08 ABG pCO2 68 mmHg (35-45) H 07/27/17 11:08 ABG pO2 59 mmHg (85-104) L 07/27/17 11:08 ABG HCO3 28 mEq/L (21-27) H 07/27/17 11:08 ABG Total CO2 31 mEq/L (20-26) H 07/27/17 11:08 ABG O2 Saturation 84 % (95-98) L 07/27/17 11:08 VBG pH 7.19 pH Units (7.32-7.42) L* 07/27/17 17:59 BUN 89 mg/dL (8-23) H 07/29/17 03:27 Creatinine 2.05 mg/dL (0.60-1.20) H 07/29/17 03:27 Est GFR ( Amer) 29 (> 60) L 07/29/17 03:27 Est GFR (Non-Af Amer) 24 (> 60) L 07/29/17 03:27 BUN/Creatinine Ratio 43 (6-26) H 07/29/17 03:27 Glucose 170 mg/dL (70-105) H 07/29/17 03:27 POC Glucose 159 mg/dL (70-99) H 07/29/17 05:41 Hemoglobin A1c 9.2 % (-5.6) H 07/23/17 05:09 Calculated Osmolality 327 (280-300) H 07/29/17 03:27 Venous Ioniz Calcium 0.99 mmol/L (1.15-1.35) L 07/29/17 05:54 Direct Bilirubin 0.4 mg/dL (0.0-0.2) H 07/28/17 03:33 Alkaline Phosphatase 319 Units/L (34-104) H 07/28/17 03:33 C-Reactive Protein 237 mg/L (Less than 10) H 07/28/17 15:35 Serum Total Protein 5.5 g/dL (6.4-8.9) L 07/28/17 03:33 Globulin 1.7 g/dL (2.4-3.5) L 07/28/17 03:33 Amylase < 10 Units/L (29-103) L 07/28/17 15:35 Urine Clarity Cloudy (Clear) A 07/29/17 01:26 Urine Protein 100 mg/dL (Neg-Trace) H 07/29/17 01:26 Urine Blood Moderate (Negative) H 07/29/17 01:26 Ur Leukocyte Esterase Large (Negative) H 07/29/17 01:26 Urine Microscopic RBC 5-15 per hpf (0-3) H 07/29/17 01:26 Urine Microscopic WBC TNTC per hpf (0-3) H 07/29/17 01:26 - Clinical Findings Intake & Output: Intake & Output 07/28/17 07/29/17 07/29/17 23:59 07:59 15:59 Intake Total 1370 / 1370 1480 / 1480 Output Total 942 / 942 1894 / 1894 0 / 0 Balance 428 / 428 -414 / -414 0 / 0 Weight 132.9 kg - VTE Documentation of Mechanical Device: Graduated compression elastic hosiery
[2017-07-29 08:50] LABS: VBG Ionized Calcium 1.05 mmol/L (1.15-1.35)
[2017-07-29] MEDS: FentaNYL (PF) 1,000 MCG in 0.9 % Sodium Chloride 80 ML IVC SCH (09:00)
--- NOTE | 2017-07-29 09:28 | Nephrology Progress Note ---
Date of Encounter: 07/29/17 Time of Encounter: 09:26 - Assessment and Plan (1) CKD (chronic kidney disease) Current Visit: Yes Status: Chronic Continue to avoid nephrotoxins and renal dose all medications. CRRT CVVH in progress. Started 07/27/17 @ 2130. Palliative spoke with daughter yesterday, code status changed to [id number]. Scr and GFR improving as expected with CRRT. UOP continues to be minimal, at most 7/hr. Qualifiers: Qualified Code(s): N18.3 - Chronic kidney disease, stage 3 (moderate) (2) Cellulitis Current Visit: Yes Status: Acute Per ID team. Qualifiers: Qualified Code(s): L03.119 - Cellulitis of unspecified part of limb (3) Chronic venous stasis dermatitis Current Visit: Yes Status: Chronic Per primary team. (4) DMII (diabetes mellitus, type 2) Current Visit: Yes Status: Chronic Serum glucose is now 170, well controlled. 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 Currently on CVVH, tolerating well. On oxy mask at 3 Liters. Objective - Vital Signs Vital signs: Vital Signs Temp Pulse Resp BP Pulse Ox 07/29/17 08:00 96.7 F L 88 12 76/49 100 07/29/17 07:00 73 20 91/73 98 07/29/17 06:00 105 11 76/41 100 07/29/17 05:00 109 11 97/57 100 07/29/17 04:00 97.1 F L 89 10 97/43 100 07/29/17 03:44 9 80/48 100 07/29/17 03:00 91 11 111/66 93 07/29/17 02:00 101 14 82/53 93 07/29/17 01:00 130 18 131/94 100 07/29/17 00:00 96.2 F L 101 10 148/94 100 07/28/17 23:53 10 152/93 100 07/28/17 23:00 108 10 116/99 100 06/05/18 22:00 128 15 124/99 100 07/28/17 21:00 117 11 114/89 100 07/28/17 20:00 95.9 F L 101 14 100/75 100 07/28/17 19:22 18 126/85 100 07/28/17 19:00 106 12 120/92 100 07/28/17 18:00 96 12 128/91 100 07/28/17 17:00 98 13 100/61 100 07/28/17 16:41 20 101/54 99 07/28/17 16:00 95.9 F L 105 16 79/39 100 07/28/17 15:00 85 14 113/42 99 07/28/17 14:00 93 16 87/41 95 07/28/17 13:00 96.4 F L 87 28 105/79 100 07/28/17 12:39 16 101/54 100 07/28/17 12:00 90 15 99/70 100 07/28/17 11:00 77 17 99/47 96 07/28/17 10:00 89 16 101/54 100 Intake and Output 07/28/17 07/29/17 07/29/17 23:59 07:59 15:59 Intake Total 1370 / 1370 1480 / 1480 561 / 561 Output Total 942 / 942 1894 / 1894 0 / 0 Balance 428 / 428 -414 / -414 561 / 561 Intake: IV Fluids 1370 / 1370 1480 / 1480 561 / 561 Calcium Chloride 4,000 MG In 0. 1040 / 1040 1040 / 1040 232 / 232 9 % Sodium Chloride 1,000 ML @ 40 mls/hr CRRT CONT [facility] Rx#: [id number] PRECEDEX Premix 400 mcg In 100 100 / 100 200 / 200 100 / 100 ml @ 0.3 MCG/KG/HR 9.93 mls/hr IVC .Q10H5M PRN Rx#:[id number] Levophed 4 MG In Dextrose 5% 229 / 229 250 ML @ 5 MCG/MIN 19.05 mls/hr IVC [facility] Rx#:[id number] Maxipime 2,000 MG In Water for 20 / 20 20 / 20 inj. (sterile) 20 ML @ 300 mls/ hr IVP Q12HR [facility] Rx#:[id number] Calcium Chloride 178 MG In 0 / 0 0 / 0 PrismaSATE BGK 2/0 5,000 ML @ 1000.356 mls/hr IVPB .Q5H [facility] Rx#:[id number] Calcium Gluconate 1,000 MG In 0 110 / 110 220 / 220 .9 % Sodium Chloride 100 ML @ 220 mls/hr IVPB ONCE PRN Rx#: [id number] Cubicin 800 MG In 0.9 % Sodium 100 / 100 Chloride 100 ML @ 200 mls/hr IVPB Q48H [facility] Rx#:[id number] Output: Rekha 936 / 936 1766 / 1766 Catheter 6 / 6 128 / 128 0 / 0 Urethral (Ellis) 0 / 0 Other: Stool Size Small Stool Consistency soft Stool Color Brown Weight 132.9 kg Blood Glucose* 181 Patient Weight 07/29/17 23:59 Weight 132.9 kg - General Appearance General appearance: Present: obese, chronically ill EENT: Present: ATNC, hearing intact, vision intact Respiratory: Present: clear Cardiology: Present: edema, normal S1, normal S2 Dialysis Vascular Access: Venous Catheter (Temp Line. DRSG C/D/I.) Gastrointestinal: Present: no tenderness, no guarding, obese (Trace edema noted to all four extremities.) Integumentary: Present: no rash, warm and dry Neurologic: Present: confused Additional Comments: Bilat lower extremity DRSG C/D/I. Psychiatric: Present: mood/affect appropriate, cooperative - Lab 07/29/17 03:27 07/29/17 03:27 Most recent lab results ABG pH 7.23 pH Units (7.32-7.45) L 07/27/17 11:08 ABG pCO2 68 mmHg (35-45) H 07/27/17 11:08 ABG pO2 59 mmHg (85-104) L 07/27/17 11:08 ABG HCO3 28 mEq/L (21-27) H 07/27/17 11:08 ABG O2 Saturation 84 % (95-98) L 07/27/17 11:08 Calcium 9.5 mg/dL (8.6-10.3) 07/29/17 03:27 Phosphorus 4.5 mg/dL (2.7-4.5) 07/28/17 03:33 Magnesium 2.3 mg/dL (1.6-2.6) 07/28/17 03:33 - VTE Documentation of Mechanical Device: Graduated compression elastic hosiery Consult Discharge Plan - Plan Referrals: Yaa Sanderson, DOCTOR OF NURSING PRACTICE [Primary Care Provider] -
--- NOTE | 2017-07-29 10:16 | Infectious Disease Progress No ---
Date of Encounter: 07/29/17 Time of Encounter: 10:14 - Assessment and Plan (1) Shock Current Visit: Yes Status: Acute Sepsis vs. Cardiogenic vs. other. The patient does have three SIRS criteria with ELAINE, altered mental status, and elevated LFts. Possible source cellulitis of the LLE vs. other. WBC worse this morning. She continues to have tachycardia and hypotension requiring vasopressors. She developed hypothermia this morning. Blood cultures ordered 07/27/17 are pending x 2 sets. Check peripheral smear.--> pending ESR 21, CRP 237. Check amylase and lipase given the patient's elevated LFTs. --> normal. Repeat blood cultures x 2 sets now. --> cancelled by the primary team. Re- ordered this morning. Check CK level - ? possible vasculitis. --> pending. Check procalcitonin. --> pending. Get complete urinalysis and culture.--> Moderate leukocyte esterase, TNTC WBC, no casts or protein. Get CT of the LLE and abdomen/pelvis without IV contrast. --> pending completion. Patient has not been stable enough to leave the ICU. Continue Daptomycin 6mg/kg IV Q48H, dosed for CRRT. Continue Cefepime 2 grams IV Q12H, dosed for CRRT. Duration of treatment depends on the clinical picture. Monitor CK levels and renal function and dose-adjust antibiotics. (2) Cellulitis Current Visit: Yes Status: Acute Location: LLE and possible right lower abdomen. Causative organism unclear. Several open lesions noted to the BLE, but none of them are actively draining pus. Blanchable erythema noted surrounding the lesions. Was treated with 5 days of IV Clindamycin prior to being transitioned to IV Rocephin. Continue wound care per the surgery and wound care teams. Continue Daptomycin 6mg/kg IV Q48H, dosed for CRRT. Continue Cefepime 2 grams IV Q12H, dosed for CRRT. Check baseline CK level. --> pending. Duration of treatment depends on the clinical picture. Monitor renal function and CK levels and dose-adjust antibiotics. Qualifiers: Site of cellulitis: extremity Site of cellulitis of extremity: lower extremity Laterality: unspecified laterality Qualified Code(s): L03.119 - Cellulitis of unspecified part of limb (3) Acute kidney injury Current Visit: Yes Status: Acute Etiology unclear. Patient developed oliguric ELAINE after admission. Nephrology consulted and following. CRRT initiated. Will avoid nephrotoxins as able. Dose-adjust antibiotics as needed. (4) Pulmonary edema Current Visit: Yes Status: Acute CXR 07/27/17 showed worsening pulmonary edema. Currently on O2 via simple mask. Management per the pulmonary team. Qualifiers: Chronicity: acute Qualified Code(s): J81.0 - Acute pulmonary edema (5) Acute respiratory failure Current Visit: Yes Status: Acute Likely secondary to pulmonary edema. Currently on O2 via simple mask. Management per the pulmonary team. Qualifiers: Respiratory failure complication: hypoxia and hypercapnia Qualified Code(s) : J96.01 - Acute respiratory failure with hypoxia; J96.02 - Acute respiratory failure with hypercapnia (6) Altered mental status Current Visit: Yes Status: Acute Likely multifactorial: sepsis + baseline dementia + respiratory acidosis + medications. Continue to monitor closely. Qualifiers: Altered mental status type: delirium Qualified Code(s): R41.0 - Disorientation, unspecified (7) Elevated liver enzymes Current Visit: Yes Status: Acute Etiology unclear. Shock liver? Improved. Abdominal exam benign. Get CT of the abdomen and pelvis without contrast. Amylase and lipase normal. Continue to trend. (8) Chronic venous stasis dermatitis Current Visit: Yes Status: Chronic Location: BLE. Multiple venous stasis ulcers noted. Management per the surgery team's recommendations. (9) Dementia Current Visit: Yes Status: Chronic Qualifiers: Dementia type: Alzheimer's disease Alzheimer's disease onset: late-onset Dementia behavioral disturbance: with behavioral disturbance Qualified Code(s) : G30.1 - Alzheimer's disease with late onset; F02.81 - Dementia in other diseases classified elsewhere with behavioral disturbance (10) Atrial fibrillation Current Visit: Yes Status: Chronic Qualifiers: Atrial fibrillation type: paroxysmal Qualified Code(s): I48.0 - Paroxysmal atrial fibrillation (11) DMII (diabetes mellitus, type 2) Current Visit: Yes Status: Chronic Uncontrolled. HgbA1C 9.2%. Recommend aggressive glucose monitoring and control to promote wound healing and prevent re-infection. Qualifiers: Diabetes mellitus residential insulin use: with oil heaterman use Diabetes mellitus complication status: with kidney complications Diabetes mellitus complication detail: with chronic kidney disease Chronic kidney disease stage : stage 3 (moderate) Qualified Code(s): E11.22 - Type 2 diabetes mellitus with diabetic chronic kidney disease; N18.3 - Chronic kidney disease, stage 3 ( moderate); Z79.4 - oil heaterman (current) use of insulin (12) CKD (chronic kidney disease) Current Visit: Yes Status: Chronic Qualifiers: Chronic kidney disease stage: stage 3 (moderate) Qualified Code(s): N18.3 - Chronic kidney disease, stage 3 (moderate) - Subjective Interval history: Patient seen and examined. No acute events noted overnight. Patient remains minimally responsive. Does not follow commands or answer questions. Moans in pain during portion of the exam. CRRT continues. No other new issues per nursing. Still requiring vasopressors at 3mcg. Infect Dis PN-Objective Data - Labs CBC & Chem 7: 07/31/17 04:30 07/31/17 04:30 Labs: Laboratory Results - last 24 hr 07/27/17 07/27/17 07/28/17 06:55 11:21 13:00 WBC RBC Hgb Hct MCV MCH MCHC RDW Plt Count MPV Immature Gran % Seg Neutrophils % Lymphocytes % Monocytes % Eosinophils % Basophils % Neutrophils # Lymphocytes # Monocytes # Eosinophils # Basophils # Nucleated RBCs/100 WBC Platelet Estimate Smear Path Review ESR Sodium Potassium Chloride Carbon Dioxide BUN Creatinine Est GFR ( Amer) Est GFR (Non-Af Amer) BUN/Creatinine Ratio Glucose POC Glucose 232 H 294 H 202 H Calculated Osmolality Calcium Venous Ioniz Calcium C-Reactive Protein Amylase Lipase Urine Color Urine Clarity Urine pH Ur Specific Corry Urine Protein Urine Glucose (UA) Urine Ketones Urine Blood Urine Nitrite Urine Bilirubin Urine Urobilinogen Ur Leukocyte Esterase Urine Microscopic RBC Urine Microscopic WBC Ur Squamous Epith Cells Ur Transition Epith Cell Urine Bacteria Hyaline Casts 07/28/17 07/28/17 07/28/17 13:28 15:35 15:35 WBC RBC Hgb Hct MCV MCH MCHC RDW Plt Count MPV Immature Gran % Seg Neutrophils % Lymphocytes % Monocytes % Eosinophils % Basophils % Neutrophils # Lymphocytes # Monocytes # Eosinophils # Basophils # Nucleated RBCs/100 WBC Platelet Estimate Smear Path Review See Below ESR 21 H Sodium Potassium Chloride Carbon Dioxide BUN Creatinine Est GFR ( Amer) Est GFR (Non-Af Amer) BUN/Creatinine Ratio Glucose POC Glucose Calculated Osmolality Calcium Venous Ioniz Calcium 1.05 L C-Reactive Protein Amylase Lipase Urine Color Urine Clarity Urine pH Ur Specific Corry Urine Protein Urine Glucose (UA) Urine Ketones Urine Blood Urine Nitrite Urine Bilirubin Urine Urobilinogen Ur Leukocyte Esterase Urine Microscopic RBC Urine Microscopic WBC Ur Squamous Epith Cells Ur Transition Epith Cell Urine Bacteria Hyaline Casts 07/28/17 07/28/17 07/28/17 15:35 17:22 17:55 WBC RBC Hgb Hct MCV MCH MCHC RDW Plt Count MPV Immature Gran % Seg Neutrophils % Lymphocytes % Monocytes % Eosinophils % Basophils % Neutrophils # Lymphocytes # Monocytes # Eosinophils # Basophils # Nucleated RBCs/100 WBC Platelet Estimate Smear Path Review ESR Sodium Potassium Chloride Carbon Dioxide BUN Creatinine Est GFR ( Amer) Est GFR (Non-Af Amer) BUN/Creatinine Ratio Glucose POC Glucose 178 H Calculated Osmolality Calcium Venous Ioniz Calcium 0.98 L C-Reactive Protein 237 H Amylase < 10 L Lipase 11 Urine Color Urine Clarity Urine pH Ur Specific Corry Urine Protein Urine Glucose (UA) Urine Ketones Urine Blood Urine Nitrite Urine Bilirubin Urine Urobilinogen Ur Leukocyte Esterase Urine Microscopic RBC Urine Microscopic WBC Ur Squamous Epith Cells Ur Transition Epith Cell Urine Bacteria Hyaline Casts 07/28/17 07/28/17 07/28/17 20:39 22:44 23:11 WBC RBC Hgb Hct MCV MCH MCHC RDW Plt Count MPV Immature Gran % Seg Neutrophils % Lymphocytes % Monocytes % Eosinophils % Basophils % Neutrophils # Lymphocytes # Monocytes # Eosinophils # Basophils # Nucleated RBCs/100 WBC Platelet Estimate Smear Path Review ESR Sodium Potassium Chloride Carbon Dioxide BUN Creatinine Est GFR ( Amer) Est GFR (Non-Af Amer) BUN/Creatinine Ratio Glucose POC Glucose 181 H Calculated Osmolality Calcium Venous Ioniz Calcium 1.04 L 0.98 L C-Reactive Protein Amylase Lipase Urine Color Urine Clarity Urine pH Ur Specific Corry Urine Protein Urine Glucose (UA) Urine Ketones Urine Blood Urine Nitrite Urine Bilirubin Urine Urobilinogen Ur Leukocyte Esterase Urine Microscopic RBC Urine Microscopic WBC Ur Squamous Epith Cells Ur Transition Epith Cell Urine Bacteria Hyaline Casts 07/29/17 07/29/17 07/29/17 01:05 01:26 03:27 WBC 23.0 H RBC 3.66 L Hgb 10.8 L Hct 35.2 L MCV 96.2 MCH 29.5 MCHC 30.7 L RDW 15.4 H Plt Count 111 L MPV 13.1 H Immature Gran % 3.4 Seg Neutrophils % 89.5 Lymphocytes % 4.2 Monocytes % 2.6 Eosinophils % 0.2 Basophils % 0.1 Neutrophils # 20.6 H Lymphocytes # 1.0 Monocytes # 0.6 Eosinophils # 0.1 Basophils # 0.0 Nucleated RBCs/100 WBC 0.3 H Platelet Estimate Slight Decrease L Smear Path Review ESR Sodium Potassium Chloride Carbon Dioxide BUN Creatinine Est GFR ( Amer) Est GFR (Non-Af Amer) BUN/Creatinine Ratio Glucose POC Glucose Calculated Osmolality Calcium Venous Ioniz Calcium 1.01 L C-Reactive Protein Amylase Lipase Urine Color Yellow Urine Clarity Cloudy A Urine pH 5.0 Ur Specific Corry 1.018 Urine Protein 100 H Urine Glucose (UA) Normal Urine Ketones Negative Urine Blood Moderate H Urine Nitrite Negative Urine Bilirubin Negative Urine Urobilinogen Normal Ur Leukocyte Esterase Large H Urine Microscopic RBC 5-15 H Urine Microscopic WBC TNTC H Ur Squamous Epith Cells Few Ur Transition Epith Cell Few Urine Bacteria Few Hyaline Casts None Seen 07/29/17 07/29/17 07/29/17 03:27 03:40 05:41 WBC RBC Hgb Hct MCV MCH MCHC RDW Plt Count MPV Immature Gran % Seg Neutrophils % Lymphocytes % Monocytes % Eosinophils % Basophils % Neutrophils # Lymphocytes # Monocytes # Eosinophils # Basophils # Nucleated RBCs/100 WBC Platelet Estimate Smear Path Review ESR Sodium 143 Potassium 3.7 Chloride 104 Carbon Dioxide 28 BUN 89 H Creatinine 2.05 H Est GFR ( Amer) 29 L Est GFR (Non-Af Amer) 24 L BUN/Creatinine Ratio 43 H Glucose 170 H POC Glucose 159 H Calculated Osmolality 327 H Calcium 9.5 Venous Ioniz Calcium 1.06 L C-Reactive Protein Amylase Lipase Urine Color Urine Clarity Urine pH Ur Specific Corry Urine Protein Urine Glucose (UA) Urine Ketones Urine Blood Urine Nitrite Urine Bilirubin Urine Urobilinogen Ur Leukocyte Esterase Urine Microscopic RBC Urine Microscopic WBC Ur Squamous Epith Cells Ur Transition Epith Cell Urine Bacteria Hyaline Casts 07/29/17 07/29/17 05:54 08:47 WBC RBC Hgb Hct MCV MCH MCHC RDW Plt Count MPV Immature Gran % Seg Neutrophils % Lymphocytes % Monocytes % Eosinophils % Basophils % Neutrophils # Lymphocytes # Monocytes # Eosinophils # Basophils # Nucleated RBCs/100 WBC Platelet Estimate Smear Path Review ESR Sodium Potassium Chloride Carbon Dioxide BUN Creatinine Est GFR ( Amer) Est GFR (Non-Af Amer) BUN/Creatinine Ratio Glucose POC Glucose Calculated Osmolality Calcium Venous Ioniz Calcium 0.99 L 1.05 L C-Reactive Protein Amylase Lipase Urine Color Urine Clarity Urine pH Ur Specific Corry Urine Protein Urine Glucose (UA) Urine Ketones Urine Blood Urine Nitrite Urine Bilirubin Urine Urobilinogen Ur Leukocyte Esterase Urine Microscopic RBC Urine Microscopic WBC Ur Squamous Epith Cells Ur Transition Epith Cell Urine Bacteria Hyaline Casts Cultures: Serology 07/29/17 07/27/17 Range/Units 01:26 10:14 Urine Color Yellow (Yellow) Urine Clarity Cloudy A (Clear) Urine pH 5.0 (5.0-8.0) pH Units Ur Specific Corry 1.018 (1.010-1.025) Urine Protein 100 H (Neg-Trace) mg/dL Urine Glucose (UA) Normal (Normal) mg/dL Urine Ketones Negative (Negative) mg/dL Urine Blood Moderate H (Negative) Urine Nitrite Negative (Negative) Urine Bilirubin Negative (Negative) Urine Urobilinogen Normal (Normal) mg/dL Ur Leukocyte Esterase Large H (Negative) Urine Microscopic RBC 5-15 H (0-3) per hpf Urine Microscopic WBC TNTC H (0-3) per hpf Ur Squamous Epith Cells Few (None-Few) per lpf Ur Transition Epith Cell Few (None-Few) per hpf Urine Bacteria Few (None-Few) per hpf Hyaline Casts None Seen (None-Few) per lpf Hep Bs Antigen Nonreactive (Nonreactive) Hep Bs Antibody 0.00 mIU/mL Exam - Constitutional Vitals: Temp Pulse Resp BP Pulse Ox 96.7 F L 117 16 100/70 100 07/29/17 08:00 07/29/17 09:00 07/29/17 09:00 07/29/17 09:00 07/29/17 09:00 General appearance: morbidly obese, no acute distress, no febrile - Head Head exam: Present: atraumatic, normal inspection, normocephalic - Eye Eye exam: Present: normal appearance, PERRL (sluggish) Pupils: Present: normal accommodation - ENT ENT exam: Present: mucous membranes dry - Neck Neck exam: Present: normal inspection Additional comments: Trachea midline. Temporary dialysis catheter noted to the right neck with transparent dressing C/D/I. - Respiratory Respiratory exam: Present: decreased breath sounds (throughout). Absent: rales , respiratory distress, rhonchi, wheezes - Cardiovascular Cardiovascular exam: Present: irregular rhythm, tachycardia - GI/Abdominal GI/Abdominal exam: Present: distended (obese), normal bowel sounds, soft, tenderness (RLQ) Additional comments: Erythema, warmth, and tenderness noted to the right lower quadrant abdominal wall. Ellis catheter noted to be draining scant amount of dark yellow urine. - Extremities Exam Additional comments: BLE compression dressings noted to be C/D/I. - Neurological Exam Neurological exam: Present: altered (Responds to painful stimuli only.) - Skin Skin exam: Present: dry, intact, normal color, warm - VTE Documentation of Mechanical Device: Graduated compression elastic hosiery Consult Discharge Plan - Plan Referrals: Yaa Sanderson CNP [Primary Care Provider] - - Attending Attestation I examined this patient and my medical decision-making was reviewed with the Resident Physician. I agree with the documented findings, disposition and treatment plan as described except to the extent set forth below.
--- NOTE | 2017-07-29 10:47 | Palliative Progress Note ---
Date of Encounter: 07/29/17 Time of Encounter: 10:15 - Assessment and plan (1) Cellulitis Current Visit: Yes Status: Acute Assessment and plan: Patient's WBC improved over the last 24 hours. Infectious disease consult noted cellulitis to lower abdomen, in addition to BLE. Treat with Antibiotics per ICU and Infectious Disease. Qualifiers: Site of cellulitis: extremity Site of cellulitis of extremity: lower extremity Laterality: unspecified laterality Qualified Code(s): L03.119 - Cellulitis of unspecified part of limb (2) DMII (diabetes mellitus, type 2) Current Visit: Yes Status: Chronic Qualifiers: Diabetes mellitus manager intermediate insulin use: with longterm use Diabetes mellitus complication status: with kidney complications Diabetes mellitus complication detail: with chronic kidney disease Chronic kidney disease stage : stage 3 (moderate) Qualified Code(s): E11.22 - Type 2 diabetes mellitus with diabetic chronic kidney disease; N18.3 - Chronic kidney disease, stage 3 ( moderate); Z79.4 - alf (current) use of insulin (3) CKD (chronic kidney disease) Current Visit: Yes Status: Chronic Assessment and plan: Nephrology following. Patient remains on Rekha. BUN and Creatinine has improved over the last 24 hours. Qualifiers: Chronic kidney disease stage: stage 3 (moderate) Qualified Code(s): N18.3 - Chronic kidney disease, stage 3 (moderate) (4) Chronic venous stasis dermatitis Current Visit: Yes Status: Chronic (5) Dementia Current Visit: Yes Status: Chronic Qualifiers: Dementia type: Alzheimer's disease Alzheimer's disease onset: late-onset Dementia behavioral disturbance: with behavioral disturbance Qualified Code(s) : G30.1 - Alzheimer's disease with late onset; F02.81 - Dementia in other diseases classified elsewhere with behavioral disturbance (6) Acute respiratory failure Current Visit: Yes Status: Acute Assessment and plan: Patient has been able to wear mask at 6L for oxygenation for greater than an hour with good oxygen saturation. Continue oxygen therapy and Qualifiers: Respiratory failure complication: hypoxia and hypercapnia Qualified Code(s) : J96.01 - Acute respiratory failure with hypoxia; J96.02 - Acute respiratory failure with hypercapnia (7) Goals of care, counseling/discussion Current Visit: Yes Status: Acute Assessment and plan: Spoke with patient's daughter Natalie regarding continued goals of care, reviewed lab results. Natalie is agreeable to continue aggressive care as long as we are moving in a positive trajectory. Would be "ok" with a PEG tube for short term allowing of increased strength. Informed Natalie would follow up on Thursday with updates in goals of care and clinical status at that time; verbalized agreement. (8) Pain Current Visit: Yes Status: Acute Assessment and plan: Patient has no nonverbal signs of pain at present time. Continue Fentanyl Infusion per ICU protocol. - Time Spent With Patient Total time spent is greater than 50% in coordination of care (as documented) at patient's floor/unit and/or counseling patient: - Subjective Interval history: Patient resting in bed with eyes closed during assessment. No reaction to verbal or tactile stimulation. Patient has Precedex and Fentanyl drip infusing for increased comfort. No family present at bedside. WBC, BUN, and Creatinine have all improved over the last 24 hours. Patient continues to be receiving Rekha at this time. Patient's oxygen saturation 98% with oxygen via mask; received report that patient has been off BiPAP for over one hour from [employer]. During morning rounds, discussed case as patient has not had any type of nourishment since 07/27/17; Dr. Cisneros requested that Palliative arrange discussion with family regarding nutrition goals and the end of the week or beginning of the next week. Received report that patient had repeat hypothermic episode last evening; barehugger remains in place at present time. - Constitutional Vitals: Abnormal lab results WBC 23.0 K/mcL (4.3-11.1) H 07/29/17 03:27 RBC 3.66 M/mcL (3.82-4.97) L 07/29/17 03:27 Hgb 10.8 g/dL (11.5-15.4) L 07/29/17 03:27 Hct 35.2 % (35.3-44.9) L 07/29/17 03:27 MCHC 30.7 g/dL (31.6-35.5) L 07/29/17 03:27 RDW 15.4 % (11.5-14.5) H 07/29/17 03:27 Plt Count 111 K/mcL (140-400) L 07/29/17 03:27 MPV 13.1 fL (9.4-12.4) H 07/29/17 03:27 Band Neutrophils % 6.0 % (0-4) H 07/28/17 03:33 Neutrophils # 20.6 K/mcL (1.6-8.9) H 07/29/17 03:27 Nucleated RBCs/100 WBC 0.3 /100 WBC (0) H 07/29/17 03:27 Platelet Estimate Slight Decrease (Normal) L 07/29/17 03:27 Hypochromasia Present (Not Present) A 07/24/17 05:45 ESR 21 mm/hr (0-15) H 07/28/17 15:35 PT 15.3 Seconds (9.4-12.1) H 07/27/17 11:13 APTT 38.4 Seconds (26.0-36.0) H 07/28/17 03:33 ABG pH 7.23 pH Units (7.32-7.45) L 07/27/17 11:08 ABG pCO2 68 mmHg (35-45) H 07/27/17 11:08 ABG pO2 59 mmHg (85-104) L 07/27/17 11:08 ABG HCO3 28 mEq/L (21-27) H 07/27/17 11:08 ABG Total CO2 31 mEq/L (20-26) H 07/27/17 11:08 ABG O2 Saturation 84 % (95-98) L 07/27/17 11:08 VBG pH 7.19 pH Units (7.32-7.42) L* 07/27/17 17:59 BUN 89 mg/dL (8-23) H 07/29/17 03:27 Creatinine 2.05 mg/dL (0.60-1.20) H 07/29/17 03:27 Est GFR ( Amer) 29 (> 60) L 07/29/17 03:27 Est GFR (Non-Af Amer) 24 (> 60) L 07/29/17 03:27 BUN/Creatinine Ratio 43 (6-26) H 07/29/17 03:27 Glucose 170 mg/dL (70-105) H 07/29/17 03:27 POC Glucose 159 mg/dL (70-99) H 07/29/17 05:41 Hemoglobin A1c 9.2 % (-5.6) H 07/23/17 05:09 Calculated Osmolality 327 (280-300) H 07/29/17 03:27 Venous Ioniz Calcium 1.05 mmol/L (1.15-1.35) L 07/29/17 08:47 Direct Bilirubin 0.4 mg/dL (0.0-0.2) H 07/28/17 03:33 Alkaline Phosphatase 319 Units/L (34-104) H 07/28/17 03:33 C-Reactive Protein 237 mg/L (Less than 10) H 07/28/17 15:35 Serum Total Protein 5.5 g/dL (6.4-8.9) L 07/28/17 03:33 Globulin 1.7 g/dL (2.4-3.5) L 07/28/17 03:33 Amylase < 10 Units/L (29-103) L 07/28/17 15:35 Urine Clarity Cloudy (Clear) A 07/29/17 01:26 Urine Protein 100 mg/dL (Neg-Trace) H 07/29/17 01:26 Urine Blood Moderate (Negative) H 07/29/17 01:26 Ur Leukocyte Esterase Large (Negative) H 07/29/17 01:26 Urine Microscopic RBC 5-15 per hpf (0-3) H 07/29/17 01:26 Urine Microscopic WBC TNTC per hpf (0-3) H 07/29/17 01:26 General appearance: Present: morbidly obese, no acute distress - Head Head exam: Present: atraumatic, normal inspection - Eye Eye exam: Present: normal appearance. Absent: periorbital swelling, periorbital tenderness Pupils: Present: fixed - ENT ENT exam: Present: mucous membranes dry, normal external ear exam - Neck Neck exam: Present: full ROM, normal inspection - Respiratory Respiratory exam: Present: wheezes. Absent: respiratory distress - Cardiovascular Cardiovascular exam: Present: +S1, +S2 - Expanded Cardiovascular Exam Peripheral pulses: 1+: Radial (L), Radial (R), Posterior Tibialis (L), Posterior Tibialis (R) - GI/Abdominal GI/Abdominal exam: Present: hyperactive bowel sounds, soft. Absent: tenderness - Rectal Rectal exam: Present: deferred - Expanded Exam Female exam: Present: deferred - Extremities Exam Extremities exam: Present: normal capillary refill (<3seconds BLE.), pedal edema - Neurological Exam Neurological exam: Present: altered. Absent: oriented X3, facial droop - Psychiatric Psychiatric exam: Present: flat affect. Absent: anxious - Skin Skin exam: Present: dry, petechiae (and bruising noted to left side of chest.) Palliative Quality Palliative Quality: Screen for Code Status: Yes, Screen for Goals of Care: Yes, Screen for Pain: Yes, If Pain Regimen Started, Initiate Bowel Regimen: NA, Screen for Nausea/Vomitting: Yes Code Status: 07/22/17 20:15 Resuscitation Status: Active [RES] Routine Comment: Resuscitation Status: Full Code 07/28/17 14:24 DNR [Resuscitation Status: Active] [RES] Routine Comment: Ok with short term intubation. Resuscitation Status: DNR-Comfort Care-Arrest - Labs CBC & Chem 7: 07/29/17 03:27 07/29/17 03:27 Labs: Laboratory Results - last 24 hr 07/27/17 07/27/17 07/28/17 06:55 11:21 13:00 WBC RBC Hgb Hct MCV MCH MCHC RDW Plt Count MPV Immature Gran % Seg Neutrophils % Lymphocytes % Monocytes % Eosinophils % Basophils % Neutrophils # Lymphocytes # Monocytes # Eosinophils # Basophils # Nucleated RBCs/100 WBC Platelet Estimate Smear Path Review ESR Sodium Potassium Chloride Carbon Dioxide BUN Creatinine Est GFR ( Amer) Est GFR (Non-Af Amer) BUN/Creatinine Ratio Glucose POC Glucose 232 H 294 H 202 H Calculated Osmolality Calcium Venous Ioniz Calcium C-Reactive Protein Amylase Lipase Urine Color Urine Clarity Urine pH Ur Specific [place] Urine Protein Urine Glucose (UA) Urine Ketones Urine Blood Urine Nitrite Urine Bilirubin Urine Urobilinogen Ur Leukocyte Esterase Urine Microscopic RBC Urine Microscopic WBC Ur Squamous Epith Cells Ur Transition Epith Cell Urine Bacteria Hyaline Casts 07/28/17 07/28/17 07/28/17 13:28 15:35 15:35 WBC RBC Hgb Hct MCV MCH MCHC RDW Plt Count MPV Immature Gran % Seg Neutrophils % Lymphocytes % Monocytes % Eosinophils % Basophils % Neutrophils # Lymphocytes # Monocytes # Eosinophils # Basophils # Nucleated RBCs/100 WBC Platelet Estimate Smear Path Review See Below ESR 21 H Sodium Potassium Chloride Carbon Dioxide BUN Creatinine Est GFR ( Amer) Est GFR (Non-Af Amer) BUN/Creatinine Ratio Glucose POC Glucose Calculated Osmolality Calcium Venous Ioniz Calcium 1.05 L C-Reactive Protein Amylase Lipase Urine Color Urine Clarity Urine pH Ur Specific [place] Urine Protein Urine Glucose (UA) Urine Ketones Urine Blood Urine Nitrite Urine Bilirubin Urine Urobilinogen Ur Leukocyte Esterase Urine Microscopic RBC Urine Microscopic WBC Ur Squamous Epith Cells Ur Transition Epith Cell Urine Bacteria Hyaline Casts 07/28/17 07/28/17 07/28/17 15:35 17:22 17:55 WBC RBC Hgb Hct MCV MCH MCHC RDW Plt Count MPV Immature Gran % Seg Neutrophils % Lymphocytes % Monocytes % Eosinophils % Basophils % Neutrophils # Lymphocytes # Monocytes # Eosinophils # Basophils # Nucleated RBCs/100 WBC Platelet Estimate Smear Path Review ESR Sodium Potassium Chloride Carbon Dioxide BUN Creatinine Est GFR ( Amer) Est GFR (Non-Af Amer) BUN/Creatinine Ratio Glucose POC Glucose 178 H Calculated Osmolality Calcium Venous Ioniz Calcium 0.98 L C-Reactive Protein 237 H Amylase < 10 L Lipase 11 Urine Color Urine Clarity Urine pH Ur Specific [place] Urine Protein Urine Glucose (UA) Urine Ketones Urine Blood Urine Nitrite Urine Bilirubin Urine Urobilinogen Ur Leukocyte Esterase Urine Microscopic RBC Urine Microscopic WBC Ur Squamous Epith Cells Ur Transition Epith Cell Urine Bacteria Hyaline Casts 07/28/17 07/28/17 07/28/17 20:39 22:44 23:11 WBC RBC Hgb Hct MCV MCH MCHC RDW Plt Count MPV Immature Gran % Seg Neutrophils % Lymphocytes % Monocytes % Eosinophils % Basophils % Neutrophils # Lymphocytes # Monocytes # Eosinophils # Basophils # Nucleated RBCs/100 WBC Platelet Estimate Smear Path Review ESR Sodium Potassium Chloride Carbon Dioxide BUN Creatinine Est GFR ( Amer) Est GFR (Non-Af Amer) BUN/Creatinine Ratio Glucose POC Glucose 181 H Calculated Osmolality Calcium Venous Ioniz Calcium 1.04 L 0.98 L C-Reactive Protein Amylase Lipase Urine Color Urine Clarity Urine pH Ur Specific [place] Urine Protein Urine Glucose (UA) Urine Ketones Urine Blood Urine Nitrite Urine Bilirubin Urine Urobilinogen Ur Leukocyte Esterase Urine Microscopic RBC Urine Microscopic WBC Ur Squamous Epith Cells Ur Transition Epith Cell Urine Bacteria Hyaline Casts 07/29/17 07/29/17 07/29/17 01:05 01:26 03:27 WBC 23.0 H RBC 3.66 L Hgb 10.8 L Hct 35.2 L MCV 96.2 MCH 29.5 MCHC 30.7 L RDW 15.4 H Plt Count 111 L MPV 13.1 H Immature Gran % 3.4 Seg Neutrophils % 89.5 Lymphocytes % 4.2 Monocytes % 2.6 Eosinophils % 0.2 Basophils % 0.1 Neutrophils # 20.6 H Lymphocytes # 1.0 Monocytes # 0.6 Eosinophils # 0.1 Basophils # 0.0 Nucleated RBCs/100 WBC 0.3 H Platelet Estimate Slight Decrease L Smear Path Review ESR Sodium Potassium Chloride Carbon Dioxide BUN Creatinine Est GFR ( Amer) Est GFR (Non-Af Amer) BUN/Creatinine Ratio Glucose POC Glucose Calculated Osmolality Calcium Venous Ioniz Calcium 1.01 L C-Reactive Protein Amylase Lipase Urine Color Yellow Urine Clarity Cloudy A Urine pH 5.0 Ur Specific [place] 1.018 Urine Protein 100 H Urine Glucose (UA) Normal Urine Ketones Negative Urine Blood Moderate H Urine Nitrite Negative Urine Bilirubin Negative Urine Urobilinogen Normal Ur Leukocyte Esterase Large H Urine Microscopic RBC 5-15 H Urine Microscopic WBC TNTC H Ur Squamous Epith Cells Few Ur Transition Epith Cell Few Urine Bacteria Few Hyaline Casts None Seen 07/29/17 07/29/17 07/29/17 03:27 03:40 05:41 WBC RBC Hgb Hct MCV MCH MCHC RDW Plt Count MPV Immature Gran % Seg Neutrophils % Lymphocytes % Monocytes % Eosinophils % Basophils % Neutrophils # Lymphocytes # Monocytes # Eosinophils # Basophils # Nucleated RBCs/100 WBC Platelet Estimate Smear Path Review ESR Sodium 143 Potassium 3.7 Chloride 104 Carbon Dioxide 28 BUN 89 H Creatinine 2.05 H Est GFR ( Amer) 29 L Est GFR (Non-Af Amer) 24 L BUN/Creatinine Ratio 43 H Glucose 170 H POC Glucose 159 H Calculated Osmolality 327 H Calcium 9.5 Venous Ioniz Calcium 1.06 L C-Reactive Protein Amylase Lipase Urine Color Urine Clarity Urine pH Ur Specific [place] Urine Protein Urine Glucose (UA) Urine Ketones Urine Blood Urine Nitrite Urine Bilirubin Urine Urobilinogen Ur Leukocyte Esterase Urine Microscopic RBC Urine Microscopic WBC Ur Squamous Epith Cells Ur Transition Epith Cell Urine Bacteria Hyaline Casts 07/29/17 07/29/17 05:54 08:47 WBC RBC Hgb Hct MCV MCH MCHC RDW Plt Count MPV Immature Gran % Seg Neutrophils % Lymphocytes % Monocytes % Eosinophils % Basophils % Neutrophils # Lymphocytes # Monocytes # Eosinophils # Basophils # Nucleated RBCs/100 WBC Platelet Estimate Smear Path Review ESR Sodium Potassium Chloride Carbon Dioxide BUN Creatinine Est GFR ( Amer) Est GFR (Non-Af Amer) BUN/Creatinine Ratio Glucose POC Glucose Calculated Osmolality Calcium Venous Ioniz Calcium 0.99 L 1.05 L C-Reactive Protein Amylase Lipase Urine Color Urine Clarity Urine pH Ur Specific [place] Urine Protein Urine Glucose (UA) Urine Ketones Urine Blood Urine Nitrite Urine Bilirubin Urine Urobilinogen Ur Leukocyte Esterase Urine Microscopic RBC Urine Microscopic WBC Ur Squamous Epith Cells Ur Transition Epith Cell Urine Bacteria Hyaline Casts - ABG Interpretation ABG results: ABG ABG pH 7.23 pH Units (7.32-7.45) L 07/27/17 11:08 ABG pCO2 68 mmHg (35-45) H 07/27/17 11:08 ABG pO2 59 mmHg (85-104) L 07/27/17 11:08 ABG O2 Saturation 84 % (95-98) L 07/27/17 11:08 PT/INR, D-dimer PT 15.3 Seconds (9.4-12.1) H 07/27/17 11:13 Consult Discharge Plan - Plan Referrals: Yaa Sanderson, EMT BASIC [Primary Care Provider] -
[2017-07-29 11:27] LABS: VBG Ionized Calcium 1.09 mmol/L (1.15-1.35)
[2017-07-29] MEDS: Insulin DETEMIR 100 UNIT/ML X5UNITS SQ SCH ×2 (11:40→20:35)
[2017-07-29] MEDS: Levothyroxine Sodium 100 MCG VIAL IVP SCH (11:44)
[2017-07-29] MEDS: Norepinephrine 4 MG in D5% in Water 250 ML IVC SCH (13:10)
[2017-07-29 14:58] LABS: VBG Ionized Calcium 1.04 mmol/L (1.15-1.35)
[2017-07-29 17:50] LABS: VBG Ionized Calcium 1.12 mmol/L (1.15-1.35)
[2017-07-29 22:57] LABS: VBG Ionized Calcium 1.12 mmol/L (1.15-1.35)
[2017-07-30] MEDS: CALCIUM CHLORIDE IVPB SCH ×9 (02:11→22:03)
[2017-07-30] MEDS: Dexmedetomidine HCl 400 MCG/100 ML MLS IVC PRN ×3 (02:11→21:24)
[2017-07-30] MEDS: PRISMASATE BGK IVPB SCH ×9 (02:11→22:03)
[2017-07-30 05:03] LABS: Basophils % 0.1 %; Eosinophils # 0.1 K/mcL (0.0-0.6); Eosinophils % 0.4 %; Hematocrit 37.8 % (35.3-44.9); Hemoglobin 11.1 g/dL (11.5-15.4); Lymphocytes # 0.9 K/mcL (0.6-4.6); Lymphocytes % 3.5 %; Mean Corpuscular HGB Conc 29.4 g/dL (31.6-35.5); Mean Corpuscular Volume 98.7 fL (83.0-100.0); Mean Platelet Volume 12.2 fL (9.4-12.4); Monocytes # 0.7 K/mcL (0.0-1.3); Monocytes % 2.5 %; Neutrophils # 22.3 K/mcL (1.6-8.9); Nucleated Red Blood Cells 0.3 /100 WBC (0); Platelet Count 101 K/mcL (140-400); Red Blood Count 3.83 M/mcL (3.82-4.97); Red Cell Distribution Width 15.7 % (11.5-14.5); Segmented Neutrophils % 86.5 %
[2017-07-30] MEDS: Norepinephrine 4 MG in D5% in Water 250 ML IVC SCH ×2 (05:03→19:11)
[2017-07-30] MEDS: Calcium Chloride 4,000 MG in 0.9 % Sodium Chloride 1,000 ML CRRT SCH ×3 (05:03→18:17)
[2017-07-30 05:11] LABS: VBG Ionized Calcium 1.23 mmol/L (1.15-1.35)
[2017-07-30 05:27] LABS: Potassium 3.6 mEq/L (3.5-5.1)
[2017-07-30 05:54] LABS: Large Platelets Present (Not Present); Platelet Estimate Slight Decrease (Normal); Toxic Granulation Present (Not Present)
[2017-07-30] MEDS: Cefepime HCl 2,000 MG in Water for inj. (sterile) 20 ML 20 ML IVP SCH ×2 (06:09→17:49)
[2017-07-30] MEDS: Insulin LISPRO 300 UNITS/3 ML VIAL SQ SCH ×3 (06:10→17:51)
[2017-07-30] MEDS: *HR* Heparin 5,000 UNIT/ML VIAL SQ SCH ×2 (06:10→17:49)
--- NOTE | 2017-07-30 09:18 | Infectious Disease Progress No ---
Date of Encounter: 07/30/17 Time of Encounter: 09:15 - Assessment and Plan (1) Shock Current Visit: Yes Status: Acute Sepsis vs. Cardiogenic vs. other. The patient does have three SIRS criteria with ELAINE, altered mental status, and elevated LFts. Possible source cellulitis of the LLE vs. other. WBC back up this morning. She continues to have tachycardia and hypotension requiring vasopressors. She continues to have intermittent hypothermia despite warming blanket. Blood cultures ordered 07/27/17 are NGTD x 2 sets. Check peripheral smear.--> showed neutrophilia and bands, but no toxic granules or Dohle bodies. ESR 21, CRP 237. Check amylase and lipase given the patient's elevated LFTs. --> normal. Repeat blood cultures x 2 sets now. --> cancelled by the primary team. Re- ordered 07/29/17. Pending. Check CK level - ? possible vasculitis. --> normal. Check procalcitonin. --> pending. Get complete urinalysis and culture.--> Moderate leukocyte esterase, TNTC WBC, no casts or protein. Culture pending. Get CT of the LLE and abdomen/pelvis without IV contrast. --> CT of the abdomen/ pelvis shows large bilateral pleural effusions and ascites/anasarca. CT of the LLE pending reading by radiology. Continue Daptomycin 6mg/kg IV Q48H, dosed for CRRT. Continue Cefepime 2 grams IV Q12H, dosed for CRRT. Duration of treatment depends on the clinical picture. Monitor CK levels and renal function and dose-adjust antibiotics. (2) Cellulitis Current Visit: Yes Status: Acute Location: LLE and possible right lower abdomen. Causative organism unclear. Several open lesions noted to the BLE, but none of them are actively draining pus. Blanchable erythema noted surrounding the lesions. Was treated with 5 days of IV Clindamycin prior to being transitioned to IV Rocephin. Continue wound care per the surgery and wound care teams. I requested that nursing wait to do dressing changes on dayshift tomorrow (rather than nightshift tonight) so that I can re-assess the status of the extremities. Continue Daptomycin 6mg/kg IV Q48H, dosed for CRRT. Continue Cefepime 2 grams IV Q12H, dosed for CRRT. Check baseline CK level. --> 173. Repeat in AM. Duration of treatment depends on the clinical picture. Monitor renal function and CK levels and dose-adjust antibiotics. Qualifiers: Site of cellulitis: extremity Site of cellulitis of extremity: lower extremity Laterality: unspecified laterality Qualified Code(s): L03.119 - Cellulitis of unspecified part of limb (3) Acute kidney injury Current Visit: Yes Status: Acute Etiology unclear. Patient developed oliguric ELAINE after admission. Nephrology consulted and following. CRRT initiated. Will avoid nephrotoxins as able. Dose-adjust antibiotics as needed. (4) Pleural effusion Current Visit: Yes Status: Acute CT of the abdomen and pelvis showed large bilateral pleural effusions. Likely secondary to third spacing. Does not appear to be loculated. If thoracentesis is performed, please send fluid for cell count with differential, protein, LDH, and culture (aerobic, anaerobic, fungal, and AFB). Management per the pulmonary team. (5) Pulmonary edema Current Visit: Yes Status: Acute CXR 07/27/17 showed worsening pulmonary edema. Currently on O2 via BIPAP. Management per the pulmonary team. Qualifiers: Chronicity: acute Qualified Code(s): J81.0 - Acute pulmonary edema (6) Acute respiratory failure Current Visit: Yes Status: Acute Likely secondary to pulmonary edema and bilateral pleural effusions. Currently on O2 via BIPAP. Management per the pulmonary team. Qualifiers: Respiratory failure complication: hypoxia and hypercapnia Qualified Code(s) : J96.01 - Acute respiratory failure with hypoxia; J96.02 - Acute respiratory failure with hypercapnia (7) Altered mental status Current Visit: Yes Status: Acute Likely multifactorial: sepsis + baseline dementia + respiratory acidosis + medications. Continue to monitor closely. Qualifiers: Altered mental status type: delirium Qualified Code(s): R41.0 - Disorientation, unspecified (8) Elevated liver enzymes Current Visit: Yes Status: Acute Etiology unclear. Shock liver? Improved. Abdominal exam benign. CT of the abdomen and pelvis non-revealing. Amylase and lipase normal. Continue to trend. Re-check in AM. (9) Chronic venous stasis dermatitis Current Visit: Yes Status: Chronic Location: BLE. Multiple venous stasis ulcers noted. Management per the surgery team's recommendations. (10) Dementia Current Visit: Yes Status: Chronic Qualifiers: Dementia type: Alzheimer's disease Alzheimer's disease onset: late-onset Dementia behavioral disturbance: with behavioral disturbance Qualified Code(s) : G30.1 - Alzheimer's disease with late onset; F02.81 - Dementia in other diseases classified elsewhere with behavioral disturbance (11) Atrial fibrillation Current Visit: Yes Status: Chronic Qualifiers: Atrial fibrillation type: paroxysmal Qualified Code(s): I48.0 - Paroxysmal atrial fibrillation (12) DMII (diabetes mellitus, type 2) Current Visit: Yes Status: Chronic Uncontrolled. HgbA1C 9.2%. Recommend aggressive glucose monitoring and control to promote wound healing and prevent re-infection. 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 No acute events noted overnight. Patient remains minimally responsive. Does not follow commands or answer questions. Moans in pain during portion of the exam. CRRT continues. No other new issues per nursing. Still requiring vasopressors at 5mcg. Infect Dis PN-Objective Data - Labs CBC & Chem 7: 07/31/17 04:30 07/31/17 04:30 Labs: Laboratory Results - last 24 hr 07/29/17 07/29/17 07/29/17 03:27 11:24 12:11 WBC RBC Hgb Hct MCV MCH MCHC RDW Plt Count MPV Immature Gran % Seg Neutrophils % Lymphocytes % Monocytes % Eosinophils % Basophils % Neutrophils # Lymphocytes # Monocytes # Eosinophils # Basophils # Nucleated RBCs/100 WBC Toxic Granulation Platelet Estimate Large Platelets Sodium 143 Potassium 3.7 Chloride 104 Carbon Dioxide 28 BUN 89 H Creatinine 2.05 H Est GFR ( Amer) 29 L Est GFR (Non-Af Amer) 24 L BUN/Creatinine Ratio 43 H Glucose 170 H POC Glucose 127 H Calculated Osmolality 327 H Calcium 9.5 Venous Ioniz Calcium 1.09 L Creatine Kinase 173 07/29/17 07/29/17 07/29/17 14:53 17:26 17:47 WBC RBC Hgb Hct MCV MCH MCHC RDW Plt Count MPV Immature Gran % Seg Neutrophils % Lymphocytes % Monocytes % Eosinophils % Basophils % Neutrophils # Lymphocytes # Monocytes # Eosinophils # Basophils # Nucleated RBCs/100 WBC Toxic Granulation Platelet Estimate Large Platelets Sodium Potassium Chloride Carbon Dioxide BUN Creatinine Est GFR ( Amer) Est GFR (Non-Af Amer) BUN/Creatinine Ratio Glucose POC Glucose 161 H Calculated Osmolality Calcium Venous Ioniz Calcium 1.04 L 1.12 L Creatine Kinase 07/29/17 07/29/17 07/30/17 22:52 23:29 04:50 WBC 25.8 H RBC 3.83 Hgb 11.1 L Hct 37.8 MCV 98.7 MCH 29.0 MCHC 29.4 L RDW 15.7 H Plt Count 101 L MPV 12.2 Immature Gran % 7.0 H Seg Neutrophils % 86.5 Lymphocytes % 3.5 Monocytes % 2.5 Eosinophils % 0.4 Basophils % 0.1 Neutrophils # 22.3 H Lymphocytes # 0.9 Monocytes # 0.7 Eosinophils # 0.1 Basophils # 0.0 Nucleated RBCs/100 WBC 0.3 H Toxic Granulation Present A Platelet Estimate Slight Decrease L Large Platelets Present A Sodium Potassium Chloride Carbon Dioxide BUN Creatinine Est GFR ( Amer) Est GFR (Non-Af Amer) BUN/Creatinine Ratio Glucose POC Glucose 187 H Calculated Osmolality Calcium Venous Ioniz Calcium 1.12 L Creatine Kinase 07/30/17 07/30/17 04:50 05:08 WBC RBC Hgb Hct MCV MCH MCHC RDW Plt Count MPV Immature Gran % Seg Neutrophils % Lymphocytes % Monocytes % Eosinophils % Basophils % Neutrophils # Lymphocytes # Monocytes # Eosinophils # Basophils # Nucleated RBCs/100 WBC Toxic Granulation Platelet Estimate Large Platelets Sodium 145 Potassium 3.6 Chloride 106 Carbon Dioxide 30 H BUN 67 H Creatinine 1.85 H Est GFR ( Amer) 32 L Est GFR (Non-Af Amer) 27 L BUN/Creatinine Ratio 36 H Glucose 152 H POC Glucose Calculated Osmolality 322 H Calcium 11.0 H Venous Ioniz Calcium 1.23 Creatine Kinase Cultures: Cultures 07/27/17 15:55 Blood Culture - Preliminary Peripheral Venipuncture No growth. 07/27/17 17:32 Blood Culture - Preliminary Peripheral Venipuncture No growth. Serology 07/29/17 07/27/17 Range/Units 01:26 10:14 Urine Color Yellow (Yellow) Urine Clarity Cloudy A (Clear) Urine pH 5.0 (5.0-8.0) pH Units Ur Specific [place] 1.018 (1.010-1.025) Urine Protein 100 H (Neg-Trace) mg/dL Urine Glucose (UA) Normal (Normal) mg/dL Urine Ketones Negative (Negative) mg/dL Urine Blood Moderate H (Negative) Urine Nitrite Negative (Negative) Urine Bilirubin Negative (Negative) Urine Urobilinogen Normal (Normal) mg/dL Ur Leukocyte Esterase Large H (Negative) Urine Microscopic RBC 5-15 H (0-3) per hpf Urine Microscopic WBC TNTC H (0-3) per hpf Ur Squamous Epith Cells Few (None-Few) per lpf Ur Transition Epith Cell Few (None-Few) per hpf Urine Bacteria Few (None-Few) per hpf Hyaline Casts None Seen (None-Few) per lpf Hep Bs Antigen Nonreactive (Nonreactive) Hep Bs Antibody 0.00 mIU/mL - Impressions Impressions Chest X-Ray 07/29/17 07:50 IMPRESSION: 1. Stable lines, tubes, and support devices. 2. Minimally improved pulmonary edema with persistent basilar opacities and moderate bilateral effusions. 3. Cardiomegaly. Status post CABG. D/ / 07/29/2017 11:42:08 Negar Figueroa MD / sharron Interpreting Provider: Negar Figueroa MD Abdomen/Pelvis CT 07/30/17 14:00 IMPRESSION: 1. Third-spacing of fluid as evidenced by large bilateral effusions, moderate ascites, and severe anasarca. 2. Severe atherosclerosis. 3. Status post cholecystectomy. D/ / 07/30/2017 08:20:40 Negar Figueroa MD / sharron Interpreting Provider: Negar Figueroa MD Exam - Constitutional Vitals: Temp Pulse Resp BP Pulse Ox 97.6 F 87 12 95/85 100 07/30/17 08:00 07/30/17 07:00 07/30/17 08:00 07/30/17 08:00 07/30/17 08:00 General appearance: morbidly obese, no febrile, no cooperative - Head Head exam: Present: atraumatic, normal inspection, normocephalic - Eye Eye exam: Present: normal appearance, PERRL Pupils: Present: normal accommodation - ENT ENT exam: Present: mucous membranes dry - Neck Neck exam: Present: normal inspection Additional comments: Temporary HD catheter noted to the right neck with transparent dressing C/D/I. - Respiratory Respiratory exam: Present: decreased breath sounds (Bilateral bases.). Absent: rales, respiratory distress, rhonchi, wheezes - Cardiovascular Cardiovascular exam: Present: irregular rhythm, tachycardia - GI/Abdominal GI/Abdominal exam: Present: distended (obese), hypoactive bowel sounds, soft, tenderness (Moans in pain with palpation) Additional comments: Ellis catheter noted to be draining scant amount of clear yellow urine. Erythema noted to the lower right abdominal wall with small pustule noted. - Extremities Exam Additional comments: Compression dressings noted to the BLE. - Neurological Exam Neurological exam: Present: altered (Opens eyes, does not follow commands. Moans in pain during exam, but does not localize pain.) - Skin Skin exam: Present: dry, intact, pallor, warm - VTE Documentation of Mechanical Device: Graduated compression elastic hosiery Consult Discharge Plan - Plan Referrals: Yaa Sanderson, [employer] S[employer] ATTENDANT [Primary Care Provider] - - Attending Attestation I examined this patient and my medical decision-making was reviewed with the Resident Physician. I agree with the documented findings, disposition and treatment plan as described except to the extent set forth below.
--- NOTE | 2017-07-30 10:14 | Pulmonology Progress Note ---
<Ceci Cisneros M - Last Filed: 07/30/17 10:16> Date of Encounter: 07/30/17 Objective PUL Vital signs: Last Vital Signs Temp 97.6 F 07/30/17 08:00 Pulse 85 07/30/17 09:00 Resp 11 07/30/17 09:00 BP 112/50 07/30/17 09:00 Pulse Ox 100 07/30/17 09:00 Results - Laboratory Findings CBC and BMP: 07/30/17 04:50 07/30/17 04:50 ABG ABG pH 7.23 pH Units (7.32-7.45) L 07/27/17 11:08 ABG pCO2 68 mmHg (35-45) H 07/27/17 11:08 ABG pO2 59 mmHg (85-104) L 07/27/17 11:08 ABG O2 Saturation 84 % (95-98) L 07/27/17 11:08 PT/INR, D-dimer PT 15.3 Seconds (9.4-12.1) H 07/27/17 11:13 Abnormal lab findings: Abnormal lab results WBC 25.8 K/mcL (4.3-11.1) H 07/30/17 04:50 Hgb 11.1 g/dL (11.5-15.4) L 07/30/17 04:50 MCHC 29.4 g/dL (31.6-35.5) L 07/30/17 04:50 RDW 15.7 % (11.5-14.5) H 07/30/17 04:50 Plt Count 101 K/mcL (140-400) L 07/30/17 04:50 Immature Gran % 7.0 % (0-4) H 07/30/17 04:50 Band Neutrophils % 6.0 % (0-4) H 07/28/17 03:33 Neutrophils # 22.3 K/mcL (1.6-8.9) H 07/30/17 04:50 Nucleated RBCs/100 WBC 0.3 /100 WBC (0) H 07/30/17 04:50 Toxic Granulation Present (Not Present) A 07/30/17 04:50 Platelet Estimate Slight Decrease (Normal) L 07/30/17 04:50 Large Platelets Present (Not Present) A 07/30/17 04:50 Hypochromasia Present (Not Present) A 07/24/17 05:45 ESR 21 mm/hr (0-15) H 07/28/17 15:35 PT 15.3 Seconds (9.4-12.1) H 07/27/17 11:13 APTT 38.4 Seconds (26.0-36.0) H 07/28/17 03:33 ABG pH 7.23 pH Units (7.32-7.45) L 07/27/17 11:08 ABG pCO2 68 mmHg (35-45) H 07/27/17 11:08 ABG pO2 59 mmHg (85-104) L 07/27/17 11:08 ABG HCO3 28 mEq/L (21-27) H 07/27/17 11:08 ABG Total CO2 31 mEq/L (20-26) H 07/27/17 11:08 ABG O2 Saturation 84 % (95-98) L 07/27/17 11:08 VBG pH 7.19 pH Units (7.32-7.42) L* 07/27/17 17:59 Carbon Dioxide 30 mEq/L (23-29) H 07/30/17 04:50 BUN 67 mg/dL (8-23) H 07/30/17 04:50 Creatinine 1.85 mg/dL (0.60-1.20) H 07/30/17 04:50 Est GFR ( Amer) 32 (> 60) L 07/30/17 04:50 Est GFR (Non-Af Amer) 27 (> 60) L 07/30/17 04:50 BUN/Creatinine Ratio 36 (6-26) H 07/30/17 04:50 Glucose 152 mg/dL (70-105) H 07/30/17 04:50 POC Glucose 187 mg/dL (70-99) H 07/29/17 23:29 Hemoglobin A1c 9.2 % (-5.6) H 07/23/17 05:09 Calculated Osmolality 322 (280-300) H 07/30/17 04:50 Calcium 11.0 mg/dL (8.6-10.3) H 07/30/17 04:50 Direct Bilirubin 0.4 mg/dL (0.0-0.2) H 07/28/17 03:33 Alkaline Phosphatase 319 Units/L (34-104) H 07/28/17 03:33 C-Reactive Protein 237 mg/L (Less than 10) H 07/28/17 15:35 Serum Total Protein 5.5 g/dL (6.4-8.9) L 07/28/17 03:33 Globulin 1.7 g/dL (2.4-3.5) L 07/28/17 03:33 Amylase < 10 Units/L (29-103) L 07/28/17 15:35 Urine Clarity Cloudy (Clear) A 07/29/17 01:26 Urine Protein 100 mg/dL (Neg-Trace) H 07/29/17 01:26 Urine Blood Moderate (Negative) H 07/29/17 01:26 Ur Leukocyte Esterase Large (Negative) H 07/29/17 01:26 Urine Microscopic RBC 5-15 per hpf (0-3) H 07/29/17 01:26 Urine Microscopic WBC TNTC per hpf (0-3) H 07/29/17 01:26 - Microbiology Findings Microbiology Findings: Microbiology, Last 48 Hours 07/27/17 15:55 Blood Culture - Preliminary Peripheral Venipuncture No growth. 07/27/17 17:32 Blood Culture - Preliminary Peripheral Venipuncture No growth. - Clinical Findings Intake & Output: Intake & Output 07/29/17 07/30/17 07/30/17 23:59 07:59 15:59 Intake Total 990 / 990 1414 / 1414 Output Total 2277 / 2277 1708 / 1708 407 / 407 Balance -1287 / -1287 -294 / -294 -407 / -407 Weight 130.5 kg Consult Discharge Plan - Plan Referrals: Yaa Sanderson, BED AND BREAKFAST INNKEEPER [Primary Care Provider] - - Attending Attestation I examined this patient and my medical decision-making was reviewed with the Resident Physician. I agree with the documented findings, disposition and treatment plan as described except to the extent set forth below. Patient seen and examined. Labs, radiology, chart personally reviewed. 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 Pulmonary: Acceptable oxygenation and ventilation on NIV, however she is at risk for invasive ventilation. Patient at risk of aspiration Cardiovascular: Patient remain on low dose Levophed and not tolerating removing fluid. GI: Nutrition per dietary and GI prophylaxis per routine. It is complicated situation, it is not recommend to have NG due to aspiration. Patient not candidate in my opinion for PEG due to ascites and will consult GI for their opinion. Heme: DVT prophylaxis per routine ID: Continue antibiotics and plan to de-escalation Renal; urine out put and renal funtion reviewed Endorcine: blood glucose is monitored Lines: all lines checked and no evidence of infections Skin: skin care to prevent pressure ulcers per nursing routine care Overall poor prognosis and I feel this patient need to be comfort care. Palliative care to follow up with family. <Marion Bolaños - Last Filed: 07/30/17 21:51> Date of Encounter: 07/30/17 Time of Encounter: 10:14 Assessment and Plan (1) Shock Current Visit: Yes Status: Acute Etiology remains unclear--cardiogenic vs sepsis vs ? Suspected source: LLE cellulitis Hypothermic overnight (< 96.8 F) despite warming blanket Hypotension requiring vasopressors, Cr > 1.85, BiPAP for acute respiratory failure, lactate > 2.0 WBC remains elevated @ 25.8 CT leg pending, ct abd shows edema w/o infectious source Plan Continue Levophed to maintain MAP > 65 ID following Blood cultures 07/27/17 results pending Urine culture pending Day 3 on cefepime and daptomycin (2) Hypotension Current Visit: Yes Status: Acute Unclear etiology. Cardiogenic vs sepsis vs ? Labile BP and pulse, titrating with Levophed CRRT day 3 Plan Continue Levophed with goal MAP > 65 Continue to hold diuretics Qualifiers: Hypotension type: unspecified hypotension type Qualified Code(s): I95.9 - Hypotension, unspecified (3) Acute respiratory failure Current Visit: Yes Status: Acute Likely secondary to CHF exacerbation Tolerating oxymask with BiPAP at night ABG showed respiratory acidosis, likely acute in nature 07/27/17 CXR shows worsening pulmonary edema with bilateral pleural effusions and bilateral opacities Family ok with short-term intubation, per goals of care meeting. Family does not want tracheostomy placed. Plan BiPAP @ night Unable to diurese due to hypotension as above Continue holding diuretics d/t hypotension Trial without BiPAP this morning Qualifiers: Respiratory failure complication: hypoxia and hypercapnia Qualified Code(s) : J96.01 - Acute respiratory failure with hypoxia; J96.02 - Acute respiratory failure with hypercapnia (4) CKD (chronic kidney disease) Current Visit: Yes Status: Chronic Acute on CKD Stage III BUN/Cr improving since starting CRRT (.85) UOP remains poor 07/27/17 started CRRT Plan Continue avoiding nephrotoxins and renal dose meds Nephro following Continue CRRT Qualifiers: Chronic kidney disease stage: stage 3 (moderate) Qualified Code(s): N18.3 - Chronic kidney disease, stage 3 (moderate) (5) Leg swelling Current Visit: Yes Status: Acute Likely chronic d/t underlying CKD, chronic CHF, venous insufficiency LLE cellulitis may be contributing--treated with IV clindamycin x 5 days then IV rocephin (both d/c'd) Diuretics being held d/t worsening renal failure Compression wraps bilateral LE Plan Antibiotic regimen as in "Cellulitis" Continue to hold diuretics Continue compression wraps, change daily (6) Cellulitis Current Visit: Yes Status: Acute LLE Causative organism unclear Treated with IV clindamycin x5 days then switched to IV rocephin Ct leg pending. CT abd only showing edema, no infectious process. Plan ID following Wound care consulted Daptomycin and Cefepime (day 3) dosed for CRRT Blood culture results pending Qualifiers: Site of cellulitis: extremity Site of cellulitis of extremity: lower extremity Laterality: unspecified laterality Qualified Code(s): L03.119 - Cellulitis of unspecified part of limb (7) Atrial fibrillation Current Visit: Yes Status: Chronic Afib with RVR HR ranging 80s- 110s Eliquis at home for anticoagulation Metoprolol currently held d/t hypotension Plan Continue to hold Eliquis while getting CRRT Anticoagulated on heparin Continue holding metoprolol while hypotensive Qualifiers: Atrial fibrillation type: paroxysmal Qualified Code(s): I48.0 - Paroxysmal atrial fibrillation (8) DMII (diabetes mellitus, type 2) Current Visit: Yes Status: Chronic Improved glucose with increasing basal insulin to BID dosing Continue SSI and basal insulin Qualifiers: Diabetes mellitus usp insulin use: with ocean transportation intermediary 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 Diabetes mellitus complication status: with kidney complications Diabetes mellitus complication detail: with chronic kidney disease Chronic kidney disease stage : stage 3 (moderate) Qualified Code(s): E11.22 - Type 2 diabetes mellitus with diabetic chronic kidney disease; N18.3 - Chronic kidney disease, stage 3 ( moderate); Z79.4 - nursing home (current) use of insulin (9) Dementia Current Visit: Yes Status: Chronic Qualifiers: Dementia type: Alzheimer's disease Alzheimer's disease onset: late-onset Dementia behavioral disturbance: with behavioral disturbance Qualified Code(s) : G30.1 - Alzheimer's disease with late onset; F02.81 - Dementia in other diseases classified elsewhere with behavioral disturbance (10) DVT prophylaxis Current Visit: Yes Status: Acute 5,000 units subcutaneous Heparin Q12H Subjective Principal diagnosis: acute on chronic kidney disease Interval history: Pt seen and examined this morning at bedside. Sedation and pain management for comfort of pt during routine care (e.g. turning pt every 2 hours, changing dressings, etc) remains difficult to manage as routine care tasks seem to cause her significant enough pain to moan and cry out. Objective PUL Vital signs: Last Vital Signs Temp 97.6 F 07/30/17 08:00 Pulse 85 07/30/17 09:00 Resp 11 07/30/17 09:00 BP 112/50 07/30/17 09:00 Pulse Ox 100 07/30/17 09:00 General: sedated on precedex, vital signs noted HEENT: head normocephalic/atraumatic, PERRL, oral mucous membranes dry Neck: right-sided HD cath connected to CRRT, dressing over cath is clean/dry/ intact Cardio: irregular rhythm, intermittently tachycardic, distant heart sounds, labile BP Pulm: diminished airflow bilateral, no wheezing, oxymask saturating well Abdomen: soft, BS+, tenderness on lifting abdominal panniculus to visualize potential site of cellulitis Extremities: LE edema worse on left, bilat LE pressure wraps C/D/I, no cyanosis Neuro: responds to painful stimuli, opens eyes spontaneously, doesn't follow commands, moves extremities spontaneously Skin: visible skin is clean, dry, intact, pallor; erythematous and tender area under RLQ panniculus Results - Laboratory Findings CBC and BMP: 07/30/17 04:50 07/30/17 04:50 ABG ABG pH 7.23 pH Units (7.32-7.45) L 07/27/17 11:08 ABG pCO2 68 mmHg (35-45) H 07/27/17 11:08 ABG pO2 59 mmHg (85-104) L 07/27/17 11:08 ABG O2 Saturation 84 % (95-98) L 07/27/17 11:08 PT/INR, D-dimer PT 15.3 Seconds (9.4-12.1) H 07/27/17 11:13 Abnormal lab findings: Abnormal lab results WBC 25.8 K/mcL (4.3-11.1) H 07/30/17 04:50 Hgb 11.1 g/dL (11.5-15.4) L 07/30/17 04:50 MCHC 29.4 g/dL (31.6-35.5) L 07/30/17 04:50 RDW 15.7 % (11.5-14.5) H 07/30/17 04:50 Plt Count 101 K/mcL (140-400) L 07/30/17 04:50 Immature Gran % 7.0 % (0-4) H 07/30/17 04:50 Band Neutrophils % 6.0 % (0-4) H 07/28/17 03:33 Neutrophils # 22.3 K/mcL (1.6-8.9) H 07/30/17 04:50 Nucleated RBCs/100 WBC 0.3 /100 WBC (0) H 07/30/17 04:50 Toxic Granulation Present (Not Present) A 07/30/17 04:50 Platelet Estimate Slight Decrease (Normal) L 07/30/17 04:50 Large Platelets Present (Not Present) A 07/30/17 04:50 Hypochromasia Present (Not Present) A 07/24/17 05:45 ESR 21 mm/hr (0-15) H 07/28/17 15:35 PT 15.3 Seconds (9.4-12.1) H 07/27/17 11:13 APTT 38.4 Seconds (26.0-36.0) H 07/28/17 03:33 ABG pH 7.23 pH Units (7.32-7.45) L 07/27/17 11:08 ABG pCO2 68 mmHg (35-45) H 07/27/17 11:08 ABG pO2 59 mmHg (85-104) L 07/27/17 11:08 ABG HCO3 28 mEq/L (21-27) H 07/27/17 11:08 ABG Total CO2 31 mEq/L (20-26) H 07/27/17 11:08 ABG O2 Saturation 84 % (95-98) L 07/27/17 11:08 VBG pH 7.19 pH Units (7.32-7.42) L* 07/27/17 17:59 Carbon Dioxide 30 mEq/L (23-29) H 07/30/17 04:50 BUN 67 mg/dL (8-23) H 07/30/17 04:50 Creatinine 1.85 mg/dL (0.60-1.20) H 07/30/17 04:50 Est GFR ( Amer) 32 (> 60) L 07/30/17 04:50 Est GFR (Non-Af Amer) 27 (> 60) L 07/30/17 04:50 BUN/Creatinine Ratio 36 (6-26) H 07/30/17 04:50 Glucose 152 mg/dL (70-105) H 07/30/17 04:50 POC Glucose 187 mg/dL (70-99) H 07/29/17 23:29 Hemoglobin A1c 9.2 % (-5.6) H 07/23/17 05:09 Calculated Osmolality 322 (280-300) H 07/30/17 04:50 Calcium 11.0 mg/dL (8.6-10.3) H 07/30/17 04:50 Direct Bilirubin 0.4 mg/dL (0.0-0.2) H 07/28/17 03:33 Alkaline Phosphatase 319 Units/L (34-104) H 07/28/17 03:33 C-Reactive Protein 237 mg/L (Less than 10) H 07/28/17 15:35 Serum Total Protein 5.5 g/dL (6.4-8.9) L 07/28/17 03:33 Globulin 1.7 g/dL (2.4-3.5) L 07/28/17 03:33 Amylase < 10 Units/L (29-103) L 07/28/17 15:35 Urine Clarity Cloudy (Clear) A 07/29/17 01:26 Urine Protein 100 mg/dL (Neg-Trace) H 07/29/17 01:26 Urine Blood Moderate (Negative) H 07/29/17 01:26 Ur Leukocyte Esterase Large (Negative) H 07/29/17 01:26 Urine Microscopic RBC 5-15 per hpf (0-3) H 07/29/17 01:26 Urine Microscopic WBC TNTC per hpf (0-3) H 07/29/17 01:26 - Microbiology Findings Microbiology Findings: Microbiology, Last 48 Hours 07/27/17 15:55 Blood Culture - Preliminary Peripheral Venipuncture No growth. 07/27/17 17:32 Blood Culture - Preliminary Peripheral Venipuncture No growth. - Clinical Findings Intake & Output: Intake & Output 07/29/17 07/30/17 07/30/17 23:59 07:59 15:59 Intake Total 990 / 990 1414 / 1414 Output Total 2277 / 2277 1708 / 1708 407 / 407 Balance -1287 / -1287 -294 / -294 -407 / -407 Weight 130.5 kg - VTE Documentation of Mechanical Device: Graduated compression elastic hosiery
[2017-07-30] MEDS: Levothyroxine Sodium 100 MCG VIAL IVP SCH (10:15)
--- NOTE | 2017-07-30 10:47 | Event Note ---
Date of Encounter: 07/30/17 Time of Encounter: 10:46 Patient is still on ICU/Personal Care Attendant service, management per tool machine set up operator
--- NOTE | 2017-07-30 10:51 | Nephrology Progress Note ---
Date of Encounter: 07/30/17 Time of Encounter: 10:49 - Assessment and Plan (1) CKD (chronic kidney disease) Current Visit: Yes Status: Chronic Continue to avoid nephrotoxins and renal dose all medications. CRRT CVVH in progress. Started 07/27/17 @ 2130. Scr and GFR improving as expected with CRRT. Patient is still on Levophed, will recommend continuing CRRT until Levophed is off and can handle hemodialysis. Unsure of the time frame daughter is wanting to pursue dialysis avenue. Qualifiers: Chronic kidney disease stage: stage 3 (moderate) Qualified Code(s): N18.3 - Chronic kidney disease, stage 3 (moderate) (2) Cellulitis Current Visit: Yes Status: Acute Per ID team. Qualifiers: Site of cellulitis: extremity Site of cellulitis of extremity: lower extremity Laterality: unspecified laterality Qualified Code(s): L03.119 - Cellulitis of unspecified part of limb (3) Chronic venous stasis dermatitis Current Visit: Yes Status: Chronic Per primary team. (4) DMII (diabetes mellitus, type 2) Current Visit: Yes Status: Chronic Serum glucose is 152 now , well controlled. 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 Currently on CVVH, tolerating well. On oxy mask at 3 Liters. Pt very drowsy with examination. RN reports removing an additional 50/ hr + net. Objective - Vital Signs Vital signs: Vital Signs Temp Pulse Resp BP Pulse Ox 07/30/17 10:00 108 12 105/49 07/30/17 09:00 85 11 112/50 100 07/30/17 08:00 97.6 F 87 12 95/85 100 07/30/17 07:00 87 10 102/80 99 07/30/17 06:00 81 10 111/66 99 07/30/17 05:00 89 11 101/77 100 07/30/17 04:00 96.8 F L 95 10 81/52 100 07/30/17 03:46 10 100 07/30/17 03:00 121 10 77/56 100 07/30/17 02:00 66 10 104/53 100 07/30/17 01:11 88 18 85/62 100 07/30/17 00:12 8 114/82 100 07/30/17 00:00 96.9 F L 90 8 114/82 100 07/29/17 23:00 118 20 143/79 100 07/29/17 22:00 108 8 134/47 100 07/29/17 21:00 107 10 140/95 100 07/29/17 20:00 96.9 F L 105 14 125/55 98 07/29/17 19:00 98 20 101/68 99 07/29/17 18:00 98 18 118/50 99 07/29/17 17:00 118 18 109/69 99 07/29/17 16:00 96.6 F L 116 18 110/47 99 07/29/17 15:00 112 17 105/49 97 07/29/17 14:00 115 18 123/67 99 07/29/17 13:00 129 18 107/43 100 07/29/17 12:00 96 F L 117 16 104/74 100 07/29/17 11:00 98 18 81/60 100 Intake and Output 07/29/17 07/30/17 07/30/17 23:59 07:59 15:59 Intake Total 990 / 990 1414 / 1414 Output Total 2277 / 2277 1708 / 1708 648 / 648 Balance -1287 / -1287 -294 / -294 -648 / -648 Intake: IV Fluids 990 / 990 1414 / 1414 Calcium Chloride 4,000 MG In 0. 870 / 870 1040 / 1040 9 % Sodium Chloride 1,000 ML @ 40 mls/hr CRRT CONT AMANDA Rx#: [id number] PRECEDEX Premix 400 mcg In 100 100 / 100 100 / 100 ml @ 0.3 MCG/KG/HR 9.93 mls/hr IVC .Q10H5M PRN Rx#:[id number] Levophed 4 MG In Dextrose 5% 254 / 254 250 ML @ 5 MCG/MIN 19.05 mls/hr IVC CONT AMANDA Rx#:[id number] Maxipime 2,000 MG In Water for 20 20 20 / 20 inj. (sterile) 20 ML @ 300 mls/ hr IVP Q12HR AAMNDA Rx#:[id number] Calcium Chloride 178 MG In 0 / 0 0 / 0 PrismaSATE BGK 2/0 5,000 ML @ 1000.356 mls/hr IVPB .Q5H AMANDA Rx#:[id number] Output: Rekha 2246 / 2246 1708 / 1708 648 / 648 Catheter 0 / 0 Other: Weight 130.5 kg Blood Glucose* 161 187 126 Patient Weight 07/30/17 23:59 Weight 130.5 kg - General Appearance General appearance: Present: obese, chronically ill, frail EENT: Present: ATNC Neck: Present: supple Respiratory: Present: clear Cardiology: Present: edema (Trace BLE), normal S1, normal S2 Dialysis Vascular Access: Venous Catheter (Temp line, DRSG C/D/I.) Gastrointestinal: Present: normoactive bowel sounds, no tenderness, no guarding Integumentary: Present: no rash, warm and dry Neurologic: Present: confused Psychiatric: Present: mood/affect appropriate, cooperative - Lab 07/30/17 04:50 07/30/17 04:50 Most recent lab results ABG pH 7.23 pH Units (7.32-7.45) L 07/27/17 11:08 ABG pCO2 68 mmHg (35-45) H 07/27/17 11:08 ABG pO2 59 mmHg (85-104) L 07/27/17 11:08 ABG HCO3 28 mEq/L (21-27) H 07/27/17 11:08 ABG O2 Saturation 84 % (95-98) L 07/27/17 11:08 Calcium 11.0 mg/dL (8.6-10.3) H 07/30/17 04:50 Phosphorus 4.5 mg/dL (2.7-4.5) 07/28/17 03:33 Magnesium 2.3 mg/dL (1.6-2.6) 07/28/17 03:33 - VTE Documentation of Mechanical Device: Graduated compression elastic hosiery Consult Discharge Plan - Plan Referrals: Yaa Sanderson, RECEPTIONIST SCHEDULER [Primary Care Provider] -
[2017-07-30 11:09] LABS: VBG Ionized Calcium 1.12 mmol/L (1.15-1.35)
--- NOTE | 2017-07-30 12:55 | Palliative Progress Note ---
Date of Encounter: 07/30/17 Time of Encounter: 11:00 - Assessment and plan (1) Goals of care, counseling/discussion Current Visit: Yes Status: Acute Assessment and plan: Conducted bedside meeting with daughter Natalie. RN Negar and resident attended. Discussed patients overall condition related to her multiple comorbid conditions. Updated Natalie on labs, diagnostics and overall inability to clearly ID source of infection and that patient is still receiving vasopressor support. Explained that patient has nutritional deficits and that consult was placed to explore options for possible PEG. Discussed pros and cons of inserting PEG. Explained possible infection, aspiration, and dumping syndrome. In addition, patient will need HD dialysis if able to have vasopressors DC'd and CRRT stopped once that happens. Explained that patient has venous stasis disease and moderately impaired NORMA report. Explained that patients chronic conditions such as diabetes, obesity, dementia and overall poor performance status are playing a role in the patients overall condition. Explained HD and desires for continuing HD after CRRT. I explained that if patient doesn't desire to continue HD that a PEG would not be inserted. Explained options for comfort care transition to hospice if Natalie decides that patient would not desire HD. Explained hospice philosophy and focus on S/S and quality of care. Explained how transition to comfort care would transpire if the desire for comfort care is decided. Provided support and informed Natalie to consider her options and if she desired to meet with any additional providers that I would set that up. Natalie will consider options and PC team will follow-up tomorrow or sooner if family desires. Patient remains DNRCC - A. Family to consider: 1. HD dialysis 2. PEG placement 3. Continue current course of treatment 4. Transition for comfort care (2) Pain Current Visit: Yes Status: Acute (3) Cellulitis Current Visit: Yes Status: Acute Assessment and plan: Dressing changes, antibiotics, and ID following. Qualifiers: Site of cellulitis: extremity Site of cellulitis of extremity: lower extremity Laterality: unspecified laterality Qualified Code(s): L03.119 - Cellulitis of unspecified part of limb (4) Chronic venous stasis dermatitis Current Visit: Yes Status: Chronic (5) CKD (chronic kidney disease) stage 3, GFR 30-59 ml/min Current Visit: Yes Status: Acute Assessment and plan: Bedside CRRT and will likely need HD following. Family deciding on goals of care. (6) Hypotension Current Visit: Yes Status: Acute Assessment and plan: Vasopressor support and CRRT Qualifiers: Hypotension type: unspecified hypotension type Qualified Code(s): I95.9 - Hypotension, unspecified - Time Spent With Patient Total time spent is greater than 50% in coordination of care (as documented) at patient's floor/unit and/or counseling patient: Greater than 35 minutes (Family meeting) - Subjective Interval history: Patient alert but moaning out loud. Remains on vasopressors and CRRT. Chart reviewed. - Constitutional Vitals: Abnormal lab results WBC 25.8 K/mcL (4.3-11.1) H 07/30/17 04:50 Hgb 11.1 g/dL (11.5-15.4) L 07/30/17 04:50 MCHC 29.4 g/dL (31.6-35.5) L 07/30/17 04:50 RDW 15.7 % (11.5-14.5) H 07/30/17 04:50 Plt Count 101 K/mcL (140-400) L 07/30/17 04:50 Immature Gran % 7.0 % (0-4) H 07/30/17 04:50 Band Neutrophils % 6.0 % (0-4) H 07/28/17 03:33 Neutrophils # 22.3 K/mcL (1.6-8.9) H 07/30/17 04:50 Nucleated RBCs/100 WBC 0.3 /100 WBC (0) H 07/30/17 04:50 Toxic Granulation Present (Not Present) A 07/30/17 04:50 Platelet Estimate Slight Decrease (Normal) L 07/30/17 04:50 Large Platelets Present (Not Present) A 07/30/17 04:50 Hypochromasia Present (Not Present) A 07/24/17 05:45 ESR 21 mm/hr (0-15) H 07/28/17 15:35 PT 15.3 Seconds (9.4-12.1) H 07/27/17 11:13 APTT 38.4 Seconds (26.0-36.0) H 07/28/17 03:33 ABG pH 7.23 pH Units (7.32-7.45) L 07/27/17 11:08 ABG pCO2 68 mmHg (35-45) H 07/27/17 11:08 ABG pO2 59 mmHg (85-104) L 07/27/17 11:08 ABG HCO3 28 mEq/L (21-27) H 07/27/17 11:08 ABG Total CO2 31 mEq/L (20-26) H 07/27/17 11:08 ABG O2 Saturation 84 % (95-98) L 07/27/17 11:08 VBG pH 7.19 pH Units (7.32-7.42) L* 07/27/17 17:59 Carbon Dioxide 30 mEq/L (23-29) H 07/30/17 04:50 BUN 67 mg/dL (8-23) H 07/30/17 04:50 Creatinine 1.85 mg/dL (0.60-1.20) H 07/30/17 04:50 Est GFR ( Amer) 32 (> 60) L 07/30/17 04:50 Est GFR (Non-Af Amer) 27 (> 60) L 07/30/17 04:50 BUN/Creatinine Ratio 36 (6-26) H 07/30/17 04:50 Glucose 152 mg/dL (70-105) H 07/30/17 04:50 POC Glucose 124 mg/dL (70-99) H 07/30/17 12:22 Hemoglobin A1c 9.2 % (-5.6) H 07/23/17 05:09 Calculated Osmolality 322 (280-300) H 07/30/17 04:50 Calcium 11.0 mg/dL (8.6-10.3) H 07/30/17 04:50 Venous Ioniz Calcium 1.12 mmol/L (1.15-1.35) L 07/30/17 11:07 Direct Bilirubin 0.4 mg/dL (0.0-0.2) H 07/28/17 03:33 Alkaline Phosphatase 319 Units/L (34-104) H 07/28/17 03:33 C-Reactive Protein 237 mg/L (Less than 10) H 07/28/17 15:35 Serum Total Protein 5.5 g/dL (6.4-8.9) L 07/28/17 03:33 Globulin 1.7 g/dL (2.4-3.5) L 07/28/17 03:33 Amylase < 10 Units/L (29-103) L 07/28/17 15:35 Urine Clarity Cloudy (Clear) A 07/29/17 01:26 Urine Protein 100 mg/dL (Neg-Trace) H 07/29/17 01:26 Urine Blood Moderate (Negative) H 07/29/17 01:26 Ur Leukocyte Esterase Large (Negative) H 07/29/17 01:26 Urine Microscopic RBC 5-15 per hpf (0-3) H 07/29/17 01:26 Urine Microscopic WBC TNTC per hpf (0-3) H 07/29/17 01:26 - Head Head exam: Present: atraumatic, normal inspection - Eye Eye exam: Present: PERRL Pupils: Present: PERRL - ENT ENT exam: Present: mucous membranes moist - Neck Neck exam: Present: normal inspection - Respiratory Respiratory exam: Present: decreased breath sounds, CTAB - Expanded Respiratory Exam Location: decreased breath sounds: Left, Right, Lower - Cardiovascular Cardiovascular exam: Present: RRR, +S1, +S2 - Expanded Cardiovascular Exam Peripheral pulses: 1+: Femoral (L) PM, Femoral (R) PM, Posterior Tibialis (L), Posterior Tibialis (R), Dorsalis Pedis (L) PM (cool), Dorsalis Pedis (R) PM ( cool), 2+: Carotid (L) PM, Carotid (R) PM, Radial (L), Radial (R) - GI/Abdominal GI/Abdominal exam: Present: diminished bowel sounds, soft - Expanded Abdominal Exam GI/Abdominal exam: Present: ascites (anasarca) - Rectal Rectal exam: Present: deferred - Extremities Exam Extremities exam: Present: pedal edema - Neurological Exam Neurological exam: Present: alert, altered - Psychiatric Psychiatric exam: Present: flat affect - Skin Skin exam: Present: pallor (cool) Palliative Quality Palliative Quality: Screen for Code Status: Yes, Screen for Goals of Care: Yes, Screen for Pain: Yes, If Pain Regimen Started, Initiate Bowel Regimen: NA, Screen for Nausea/Vomitting: Yes Code Status: 07/22/17 20:15 Resuscitation Status: Active [RES] Routine Comment: Resuscitation Status: Full Code 07/28/17 14:24 DNR [Resuscitation Status: Active] [RES] Routine Comment: Ok with short term intubation. Resuscitation Status: DNR-Comfort Care-Arrest - Labs CBC & Chem 7: 07/30/17 04:50 07/30/17 04:50 Labs: Laboratory Results - last 24 hr 07/29/17 07/29/17 07/29/17 03:27 14:53 17:26 WBC RBC Hgb Hct MCV MCH MCHC RDW Plt Count MPV Immature Gran % Seg Neutrophils % Lymphocytes % Monocytes % Eosinophils % Basophils % Neutrophils # Lymphocytes # Monocytes # Eosinophils # Basophils # Nucleated RBCs/100 WBC Toxic Granulation Platelet Estimate Large Platelets Sodium 143 Potassium 3.7 Chloride 104 Carbon Dioxide 28 BUN 89 H Creatinine 2.05 H Est GFR ( Amer) 29 L Est GFR (Non-Af Amer) 24 L BUN/Creatinine Ratio 43 H Glucose 170 H POC Glucose 161 H Calculated Osmolality 327 H Calcium 9.5 Venous Ioniz Calcium 1.04 L Creatine Kinase 173 07/29/17 07/29/17 07/29/17 17:47 22:52 23:29 WBC RBC Hgb Hct MCV MCH MCHC RDW Plt Count MPV Immature Gran % Seg Neutrophils % Lymphocytes % Monocytes % Eosinophils % Basophils % Neutrophils # Lymphocytes # Monocytes # Eosinophils # Basophils # Nucleated RBCs/100 WBC Toxic Granulation Platelet Estimate Large Platelets Sodium Potassium Chloride Carbon Dioxide BUN Creatinine Est GFR ( Amer) Est GFR (Non-Af Amer) BUN/Creatinine Ratio Glucose POC Glucose 187 H Calculated Osmolality Calcium Venous Ioniz Calcium 1.12 L 1.12 L Creatine Kinase 07/30/17 07/30/17 07/30/17 04:50 04:50 05:08 WBC 25.8 H RBC 3.83 Hgb 11.1 L Hct 37.8 MCV 98.7 MCH 29.0 MCHC 29.4 L RDW 15.7 H Plt Count 101 L MPV 12.2 Immature Gran % 7.0 H Seg Neutrophils % 86.5 Lymphocytes % 3.5 Monocytes % 2.5 Eosinophils % 0.4 Basophils % 0.1 Neutrophils # 22.3 H Lymphocytes # 0.9 Monocytes # 0.7 Eosinophils # 0.1 Basophils # 0.0 Nucleated RBCs/100 WBC 0.3 H Toxic Granulation Present A Platelet Estimate Slight Decrease L Large Platelets Present A Sodium 145 Potassium 3.6 Chloride 106 Carbon Dioxide 30 H BUN 67 H Creatinine 1.85 H Est GFR ( Amer) 32 L Est GFR (Non-Af Amer) 27 L BUN/Creatinine Ratio 36 H Glucose 152 H POC Glucose Calculated Osmolality 322 H Calcium 11.0 H Venous Ioniz Calcium 1.23 Creatine Kinase 07/30/17 07/30/17 07/30/17 10:25 11:07 12:22 WBC RBC Hgb Hct MCV MCH MCHC RDW Plt Count MPV Immature Gran % Seg Neutrophils % Lymphocytes % Monocytes % Eosinophils % Basophils % Neutrophils # Lymphocytes # Monocytes # Eosinophils # Basophils # Nucleated RBCs/100 WBC Toxic Granulation Platelet Estimate Large Platelets Sodium Potassium Chloride Carbon Dioxide BUN Creatinine Est GFR ( Amer) Est GFR (Non-Af Amer) BUN/Creatinine Ratio Glucose POC Glucose 124 H 124 H Calculated Osmolality Calcium Venous Ioniz Calcium 1.12 L Creatine Kinase - Impressions Impressions Chest X-Ray 07/29/17 07:50 IMPRESSION: 1. Stable lines, tubes, and support devices. 2. Minimally improved pulmonary edema with persistent basilar opacities and moderate bilateral effusions. 3. Cardiomegaly. Status post CABG. D/ / 07/29/2017 11:42:08 Negar Figueroa MD / sharron Interpreting Provider: Negar Figueroa MD Abdomen/Pelvis CT 07/30/17 14:00 IMPRESSION: 1. Third-spacing of fluid as evidenced by large bilateral effusions, moderate ascites, and severe anasarca. 2. Severe atherosclerosis. 3. Status post cholecystectomy. D/ / 07/30/2017 08:20:40 Negar Figueroa MD / sharron Interpreting Provider: Negar Figueroa MD - ABG Interpretation ABG results: ABG ABG pH 7.23 pH Units (7.32-7.45) L 07/27/17 11:08 ABG pCO2 68 mmHg (35-45) H 07/27/17 11:08 ABG pO2 59 mmHg (85-104) L 07/27/17 11:08 ABG O2 Saturation 84 % (95-98) L 07/27/17 11:08 PT/INR, D-dimer PT 15.3 Seconds (9.4-12.1) H 07/27/17 11:13 Consult Discharge Plan - Plan Referrals: Yaa Sanderson CNP [Primary Care Provider] -
--- NOTE | 2017-07-30 12:56 | Event Note ---
Date of Encounter: 07/30/17 Time of Encounter: 11:45 Surgery asked to see the patient regarding possible peg tube placement. The patient is critically ill in the intensive care unit. She is experiencing shock due to unclear cause, respiratory failure, heart failure, pulmonary edema, acute kidney failure, elevated liver function, chronic lower extremity venous stasis dermatitis with ulcers. She had multiple additional chronic co- morbidities. The family has decided not to proceed with a tracheostomy at this time. Would not recommend peg tube placement at this time. Please call with any further questions/concerns.
[2017-07-30] MEDS: Insulin DETEMIR 100 UNIT/ML X5UNITS SQ SCH ×2 (13:14→19:56)
[2017-07-30] MEDS ORDERED: 0.9 % Sodium Chloride 1,000 ML PRIME PRN (13:26)
[2017-07-30] MEDS: DAPTOmycin 800 MG in 0.9 % Sodium Chloride 100 ML IVPB SCH (15:43)
[2017-07-30] MEDS: FentaNYL (PF) 1,000 MCG in 0.9 % Sodium Chloride 80 ML IVC SCH (17:29)
[2017-07-30 18:36] LABS: VBG Ionized Calcium 1.17 mmol/L (1.15-1.35)
[2017-07-30 23:09] LABS: VBG Ionized Calcium 1.13 mmol/L (1.15-1.35)
[2017-07-31] MEDS: Insulin LISPRO 300 UNITS/3 ML VIAL SQ SCH ×4 (00:14→17:33)
[2017-07-31] MEDS: Calcium Chloride 4,000 MG in 0.9 % Sodium Chloride 1,000 ML CRRT SCH ×4 (00:31→18:00)
[2017-07-31] MEDS: PRISMASATE BGK IVPB SCH ×4 (04:07→17:36)
[2017-07-31] MEDS: CALCIUM CHLORIDE IVPB SCH ×4 (04:07→17:36)
[2017-07-31 04:47] LABS: VBG Ionized Calcium 1.19 mmol/L (1.15-1.35)
[2017-07-31 04:49] LABS: Nucleated Red Blood Cells 0.5 /100 WBC (0)
[2017-07-31 04:50] LABS: Basophils # 0.1 K/mcL (0.0-0.2); Basophils % 0.3 %; Eosinophils # 0.2 K/mcL (0.0-0.6); Hematocrit 34.3 % (35.3-44.9); Hemoglobin 9.8 g/dL (11.5-15.4); Immature Granulocytes % 2.3 % (0-4); Lymphocytes # 0.9 K/mcL (0.6-4.6); Lymphocytes % 4.9 %; Mean Corpuscular HGB Conc 28.6 g/dL (31.6-35.5); Mean Corpuscular Hemoglobin 28.2 pg (28.0-33.3); Mean Corpuscular Volume 98.8 fL (83.0-100.0); Mean Platelet Volume 12.7 fL (9.4-12.4); Monocytes # 0.5 K/mcL (0.0-1.3); Monocytes % 2.8 %; Neutrophils # 16.7 K/mcL (1.6-8.9); Red Blood Count 3.47 M/mcL (3.82-4.97); Red Cell Distribution Width 15.8 % (11.5-14.5); Segmented Neutrophils % 88.7 %
[2017-07-31] MEDS: *HR* Heparin 5,000 UNIT/ML VIAL SQ SCH ×2 (05:01→17:15)
[2017-07-31] MEDS: Cefepime HCl 2,000 MG in Water for inj. (sterile) 20 ML 20 ML IVP SCH ×2 (05:02→17:16)
[2017-07-31 05:08] LABS: Calcium 11.9 mg/dL (8.6-10.3); Potassium 3.4 mEq/L (3.5-5.1)
[2017-07-31 05:33] LABS: Platelet Count 91 K/mcL (140-400)
[2017-07-31 05:35] LABS: Hypochromasia Present (Not Present); Platelet Estimate Decreased (Normal); Toxic Granulation Present (Not Present)
[2017-07-31] MEDS: Dexmedetomidine HCl 400 MCG/100 ML MLS IVC PRN ×2 (06:39→15:23)
[2017-07-31] MEDS: Levothyroxine Sodium 100 MCG VIAL IVP SCH (09:14)
[2017-07-31] MEDS: Insulin DETEMIR 100 UNIT/ML X5UNITS SQ SCH ×2 (09:33→20:23)
--- NOTE | 2017-07-31 09:53 | Infectious Disease Progress No ---
Date of Encounter: 07/31/17 Time of Encounter: 09:51 - Assessment and Plan (1) Shock Current Visit: Yes Status: Acute Sepsis vs. Cardiogenic vs. other. The patient does have three SIRS criteria with ELAINE, altered mental status, and elevated LFts. Possible source cellulitis of the LLE vs. UTI vs. other. WBC improved this morning. She continues to have tachycardia and hypotension requiring vasopressors. She continues to have intermittent hypothermia despite warming blanket. Blood cultures ordered 07/27/17 are NGTD x 2 sets. Additional blood cultures drawn 07/29/17 are NGTD x 2 sets. Check peripheral smear.--> showed neutrophilia and bands. Toxic granules noted on CBC yesterday. ESR 21, CRP 237. Check amylase and lipase given the patient's elevated LFTs. --> normal. Check CK level - ? possible vasculitis. --> normal. Check procalcitonin. --> pending. Get complete urinalysis and culture.--> Moderate leukocyte esterase, TNTC WBC, no casts or protein. Culture positive for PSEA and VRE. Get CT of the LLE and abdomen/pelvis without IV contrast. --> CT of the abdomen/ pelvis shows large bilateral pleural effusions and ascites/anasarca. CT of the LLE negative. Continue Daptomycin 6mg/kg IV Q48H, dosed for CRRT. Continue Cefepime 2 grams IV Q12H, dosed for CRRT. Duration of treatment depends on the clinical picture. Monitor CK levels and renal function and dose-adjust antibiotics. (2) UTI (urinary tract infection) Current Visit: Yes Status: Acute Causative organism: Pseudomonas aeruginosa and VRE. Continue Daptomycin and Cefepime as above. Duration of treatment depends on the clinical picture. Consider switching out danielle catheter. Continue contact precautions per protocol. Qualifiers: Urinary tract infection type: site unspecified Hematuria presence: without hematuria Qualified Code(s): N39.0 - Urinary tract infection, site not specified (3) Cellulitis Current Visit: Yes Status: Acute Location: LLE and possible right lower abdomen. Causative organism unclear. Several open lesions noted to the BLE, but none of them are actively draining pus. Blanchable erythema noted surrounding the lesions. Was treated with 5 days of IV Clindamycin prior to being transitioned to IV Rocephin. Continue wound care per the surgery and wound care teams. Overall, the LLE appears improved. Continue Daptomycin 6mg/kg IV Q48H, dosed for CRRT. Continue Cefepime 2 grams IV Q12H, dosed for CRRT. Check baseline CK level. --> 173. Repeat now. Add to labs drawn this morning. Duration of treatment depends on the clinical picture. Monitor renal function and CK levels and dose-adjust antibiotics. Qualifiers: Site of cellulitis: extremity Site of cellulitis of extremity: lower extremity Laterality: unspecified laterality Qualified Code(s): L03.119 - Cellulitis of unspecified part of limb (4) Acute kidney injury Current Visit: Yes Status: Acute Etiology unclear. Patient developed oliguric ELAINE after admission. Nephrology consulted and following. CRRT initiated. Will avoid nephrotoxins as able. Dose-adjust antibiotics as needed. (5) Pleural effusion Current Visit: Yes Status: Acute CT of the abdomen and pelvis showed large bilateral pleural effusions. Likely secondary to third spacing. Does not appear to be loculated. If thoracentesis is performed, please send fluid for cell count with differential, protein, LDH, and culture (aerobic, anaerobic, fungal, and AFB). Management per the pulmonary team. (6) Pulmonary edema Current Visit: Yes Status: Acute CXR 07/27/17 showed worsening pulmonary edema. Currently on O2 via Oxymask. Management per the pulmonary team. Qualifiers: Chronicity: acute Qualified Code(s): J81.0 - Acute pulmonary edema (7) Acute respiratory failure Current Visit: Yes Status: Acute Likely secondary to pulmonary edema and bilateral pleural effusions. Currently on O2 via Oxymask. Management per the pulmonary team. Qualifiers: Respiratory failure complication: hypoxia and hypercapnia Qualified Code(s) : J96.01 - Acute respiratory failure with hypoxia; J96.02 - Acute respiratory failure with hypercapnia (8) Altered mental status Current Visit: Yes Status: Acute Likely multifactorial: sepsis + baseline dementia + respiratory acidosis + medications. Continue to monitor closely. Palliative care team consulted and following. Pending family's decision for further plan. Qualifiers: Altered mental status type: delirium Qualified Code(s): R41.0 - Disorientation, unspecified (9) Elevated liver enzymes Current Visit: Yes Status: Acute Etiology unclear. Shock liver? Improved. Abdominal exam benign. CT of the abdomen and pelvis non-revealing. Amylase and lipase normal. Continue to trend. Re-check now. Add to AM labs. (10) Chronic venous stasis dermatitis Current Visit: Yes Status: Chronic Location: BLE. Multiple venous stasis ulcers noted, none appear acutely infected at this point. Management per the surgery team's recommendations. (11) Dementia Current Visit: Yes Status: Chronic Qualifiers: Dementia type: Alzheimer's disease Alzheimer's disease onset: late-onset Dementia behavioral disturbance: with behavioral disturbance Qualified Code(s) : G30.1 - Alzheimer's disease with late onset; F02.81 - Dementia in other diseases classified elsewhere with behavioral disturbance (12) Atrial fibrillation Current Visit: Yes Status: Chronic Qualifiers: Atrial fibrillation type: paroxysmal Qualified Code(s): I48.0 - Paroxysmal atrial fibrillation (13) DMII (diabetes mellitus, type 2) Current Visit: Yes Status: Chronic Uncontrolled. HgbA1C 9.2%. Recommend aggressive glucose monitoring and control to promote wound healing and prevent re-infection. 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 No acute events noted overnight. Patient remains minimally responsive, on Precedex and Fentanyl drips. Does not follow commands or answer questions. Moans in pain during portion of the exam. CRRT continues. No other new issues per nursing. Still requiring vasopressors at 5mcg. Infect Dis PN-Objective Data - Labs CBC & Chem 7: 07/31/17 04:30 07/31/17 04:30 Labs: Laboratory Results - last 24 hr 07/30/17 07/30/17 07/30/17 10:25 11:07 12:22 WBC RBC Hgb Hct MCV MCH MCHC RDW Plt Count MPV Immature Gran % Seg Neutrophils % Lymphocytes % Monocytes % Eosinophils % Basophils % Neutrophils # Lymphocytes # Monocytes # Eosinophils # Basophils # Nucleated RBCs/100 WBC Toxic Granulation Platelet Estimate Hypochromasia Sodium Potassium Chloride Carbon Dioxide BUN Creatinine Est GFR ( Amer) Est GFR (Non-Af Amer) BUN/Creatinine Ratio Glucose POC Glucose 124 H 124 H Calculated Osmolality Calcium Venous Ioniz Calcium 1.12 L 07/30/17 07/30/17 07/30/17 17:35 18:29 23:05 WBC RBC Hgb Hct MCV MCH MCHC RDW Plt Count MPV Immature Gran % Seg Neutrophils % Lymphocytes % Monocytes % Eosinophils % Basophils % Neutrophils # Lymphocytes # Monocytes # Eosinophils # Basophils # Nucleated RBCs/100 WBC Toxic Granulation Platelet Estimate Hypochromasia Sodium Potassium Chloride Carbon Dioxide BUN Creatinine Est GFR ( Amer) Est GFR (Non-Af Amer) BUN/Creatinine Ratio Glucose POC Glucose 143 H Calculated Osmolality Calcium Venous Ioniz Calcium 1.17 1.13 L 07/30/17 07/31/17 07/31/17 23:29 04:30 04:30 WBC 18.8 H RBC 3.47 L Hgb 9.8 L Hct 34.3 L MCV 98.8 MCH 28.2 MCHC 28.6 L RDW 15.8 H Plt Count 91 L MPV 12.7 H Immature Gran % 2.3 Seg Neutrophils % 88.7 Lymphocytes % 4.9 Monocytes % 2.8 Eosinophils % 1.0 Basophils % 0.3 Neutrophils # 16.7 H Lymphocytes # 0.9 Monocytes # 0.5 Eosinophils # 0.2 Basophils # 0.1 Nucleated RBCs/100 WBC 0.5 H Toxic Granulation Present A Platelet Estimate Decreased L Hypochromasia Present A Sodium 143 Potassium 3.4 L Chloride 105 Carbon Dioxide 31 H BUN 48 H Creatinine 1.60 H Est GFR ( Amer) 38 L Est GFR (Non-Af Amer) 31 L BUN/Creatinine Ratio 30 H Glucose 184 H POC Glucose 194 H Calculated Osmolality 313 H Calcium 11.9 H Venous Ioniz Calcium 07/31/17 07/31/17 04:45 05:43 WBC RBC Hgb Hct MCV MCH MCHC RDW Plt Count MPV Immature Gran % Seg Neutrophils % Lymphocytes % Monocytes % Eosinophils % Basophils % Neutrophils # Lymphocytes # Monocytes # Eosinophils # Basophils # Nucleated RBCs/100 WBC Toxic Granulation Platelet Estimate Hypochromasia Sodium Potassium Chloride Carbon Dioxide BUN Creatinine Est GFR ( Amer) Est GFR (Non-Af Amer) BUN/Creatinine Ratio Glucose POC Glucose 183 H Calculated Osmolality Calcium Venous Ioniz Calcium 1.19 Cultures: Cultures 07/29/17 01:26 Urine Culture - Final Urine,[place] Pseudomonas aeruginosa Vanc. Resistant Enterococcus 07/29/17 12:06 Blood Culture - Preliminary Peripheral Venipuncture No growth. 07/29/17 11:03 Blood Culture - Preliminary Peripheral Venipuncture No growth. 07/27/17 15:55 Blood Culture - Preliminary Peripheral Venipuncture No growth. 07/27/17 17:32 Blood Culture - Preliminary Peripheral Venipuncture No growth. Serology 07/29/17 07/27/17 Range/Units 01:26 10:14 Urine Color Yellow (Yellow) Urine Clarity Cloudy A (Clear) Urine pH 5.0 (5.0-8.0) pH Units Ur Specific [place] 1.018 (1.010-1.025) Urine Protein 100 H (Neg-Trace) mg/dL Urine Glucose (UA) Normal (Normal) mg/dL Urine Ketones Negative (Negative) mg/dL Urine Blood Moderate H (Negative) Urine Nitrite Negative (Negative) Urine Bilirubin Negative (Negative) Urine Urobilinogen Normal (Normal) mg/dL Ur Leukocyte Esterase Large H (Negative) Urine Microscopic RBC 5-15 H (0-3) per hpf Urine Microscopic WBC TNTC H (0-3) per hpf Ur Squamous Epith Cells Few (None-Few) per lpf Ur Transition Epith Cell Few (None-Few) per hpf Urine Bacteria Few (None-Few) per hpf Hyaline Casts None Seen (None-Few) per lpf Hep Bs Antigen Nonreactive (Nonreactive) Hep Bs Antibody 0.00 mIU/mL - Impressions Impressions Lower Extremity CT 07/30/17 14:00 IMPRESSION: 1. Nonspecific moderate edema of the distal thigh and proximal lower leg which may represent bland edema versus cellulitis as is also seen on the visualized portion of the medial right lower extremity. Extensive broad-based ulcerations of the left lower leg. 2. No CT evidence of abscess, deep fasciitis, or myositis. 3. Decreased bone mineral density. Normal left lower extremity appointments with multifocal knee osteoarthritis and 6 millimeter intra-articular body. Moderate midfoot neuropathic arthropathy. 4. There is no acute osseous abnormality. No evidence of septic arthropathy or osteomyelitis. D/ / Andrzej He MD / Andrzej He MD Interpreting Provider: Andrzej He MD Exam - Constitutional Vitals: Temp Pulse Resp BP Pulse Ox 97.5 F L 81 14 126/98 100 07/31/17 08:00 07/31/17 08:00 07/31/17 08:00 07/31/17 08:00 07/31/17 08:00 General appearance: morbidly obese, no acute distress, no febrile - Head Head exam: Present: atraumatic, normal inspection, normocephalic - Eye Eye exam: Present: normal appearance, PERRL Pupils: Present: normal accommodation - ENT ENT exam: Present: mucous membranes dry - Neck Neck exam: Present: normal inspection Additional comments: Temporary dialysis catheter noted to the right lateral neck with transparent dressing C/D/I. - Respiratory Respiratory exam: Present: decreased breath sounds (Bilateral bases.), CTAB. Absent: rales, respiratory distress, rhonchi, wheezes - Cardiovascular Cardiovascular exam: Present: irregular rhythm. Absent: tachycardia - GI/Abdominal GI/Abdominal exam: Present: distended (obese), hypoactive bowel sounds, soft. Absent: tenderness Additional comments: Danielle catheter noted without urine in the collection bag. Erythema to the right lower abdomen with small, non-draining pustule noted. - Extremities Exam Extremities exam: Present: tenderness (Patient yells out in pain with removal of her BLE dressings.). Absent: pedal edema Additional comments: Dressings to the BLE removed with assistance of nursing. Blanching erythema to the LLE improved. Superifical ulcerations noted without purulence, foul odor, or fluctuance. Superficial ulceration noted to the posterior/medial aspect of the left calf with small amount of bleeding. - Neurological Exam Neurological exam: Present: altered (Moans in pain, but does not answer questions or follow commands.) - Skin Skin exam: Present: dry, intact, normal color, warm - VTE Documentation of Mechanical Device: Graduated compression elastic hosiery Consult Discharge Plan - Plan Referrals: Yaa Sanderson, [employer] [Primary Care Provider] - - Attending Attestation I examined this patient and my medical decision-making was reviewed with the Resident Physician. I agree with the documented findings, disposition and treatment plan as described except to the extent set forth below.
--- NOTE | 2017-07-31 09:56 | Nephrology Progress Note ---
Date of Encounter: 07/31/17 Time of Encounter: 09:53 - Assessment and Plan (1) CKD (chronic kidney disease) Current Visit: Yes Status: Chronic Continue to avoid nephrotoxins and renal dose all medications. CRRT CVVH in progress. Started 07/27/17 @ 2130. Scr and GFR improving as expected with CRRT. Pulm. team spoke with pt's daughter and she is now exploring the option of trach /peg with improvement in WBC, discussed that if patient is still on Levophed, will recommend continuing CRRT until Levophed is off and can handle hemodialysis. Qualifiers: Qualified Code(s): N18.3 - Chronic kidney disease, stage 3 (moderate) (2) Cellulitis Current Visit: Yes Status: Acute Per ID team. Qualifiers: Qualified Code(s): L03.119 - Cellulitis of unspecified part of limb (3) Chronic venous stasis dermatitis Current Visit: Yes Status: Chronic Per primary team. (4) DMII (diabetes mellitus, type 2) Current Visit: Yes Status: Chronic Serum glucose is 184. Qualifiers: Qualified Code(s): E11.22 - Type 2 diabetes mellitus with diabetic chronic kidney disease; N18.3 - Chronic kidney disease, stage 3 (moderate); Z79.4 - half-way (current) use of insulin Subjective Principal diagnosis: acute on chronic kidney disease Interval history: Pt seen and examined. Currently on CVVH, tolerating well. On oxy mask at 3 Liters. Pt yelling. Objective - Vital Signs Vital signs: Vital Signs Temp Pulse Resp BP Pulse Ox 07/31/17 08:00 97.5 F L 81 14 126/98 100 07/31/17 07:35 86 07/31/17 07:00 79 14 117/64 98 07/31/17 06:00 97.6 F 85 16 103/69 100 07/31/17 04:56 86 12 112/82 98 07/31/17 03:57 96.2 F L 84 10 106/55 99 07/31/17 03:07 78 07/31/17 02:56 86 10 104/64 99 07/31/17 01:57 84 16 92/72 98 07/31/17 00:59 113 8 106/76 99 07/30/17 23:59 96.4 F L 92 16 108/74 100 07/30/17 23:05 90 07/30/17 23:00 93 20 115/80 96 07/30/17 22:00 88 14 76/61 100 07/30/17 20:57 92 14 101/69 100 07/30/17 20:00 96.9 F L 93 18 107/75 99 07/30/17 19:20 89 07/30/17 19:00 98 12 106/58 98 07/30/17 18:00 87 12 84/52 98 07/30/17 17:00 96.7 F L 104 12 130/73 99 07/30/17 16:00 96.9 F L 98 12 94/70 99 07/30/17 15:00 88 12 128/60 100 07/30/17 14:00 90 12 87/69 99 07/30/17 13:00 122 12 115/71 99 07/30/17 12:00 96.0 F L 124 12 111/84 98 07/30/17 11:00 87 12 102/67 07/30/17 10:00 108 12 105/49 Intake and Output 07/30/17 07/31/17 07/31/17 23:59 07:59 15:59 Intake Total 6618.78 / 6618.78 7160 / 7160 0 / 0 Output Total 2546 / 2546 1868 / 1868 544 / 544 Balance 4072.78 / 4072.78 5292 / 5292 -544 / -544 Intake: IV Fluids 6618.78 / 6618.78 7160 / 7160 Calcium Chloride 4,000 MG In 0. 1040 / 1040 2040 / 2040 9 % Sodium Chloride 1,000 ML @ 40 mls/hr CRRT CONT AAMNDA Rx#: [id number] PRECEDEX Premix 400 mcg In 100 100 / 100 100 / 100 ml @ 0.3 MCG/KG/HR 9.93 mls/hr IVC .Q10H5M PRN Rx#:[id number] FentaNYL (PF) 1,000 MCG In 0.9 103 / 103 % Sodium Chloride 80 ML @ 12.5 MCG/HR 1.25 mls/hr IVC CONT AMANDA Rx#:[id number] Levophed 4 MG In Dextrose 5% 254 / 254 250 ML @ 5 MCG/MIN 19.05 mls/hr IVC CONT AMANDA Rx#:[id number] Maxipime 2,000 MG In Water for 20 20 / 20 inj. (sterile) 20 ML @ 300 mls/ hr IVP Q12HR AMANDA Rx#:[id number] Calcium Chloride 178 MG In 5001.78 / 5001.78 5000 / 5000 PrismaSATE BGK 2/0 5,000 ML @ 714.54 mls/hr IVPB .Q7H AMANDA Rx# :[id number] Cubicin 800 MG In 0.9 % Sodium 100 / 100 Chloride 100 ML @ 200 mls/hr IVPB Q48H AMANAD Rx#:[id number] Oral 0 / 0 0 / 0 0 / 0 Output: Rekha 2536 / 2536 1861 / 1861 544 / 544 Catheter 7 / 7 0 / 0 Urethral (Ellis) 0 / 0 Other: Weight 125.4 kg Blood Glucose* 192 192 - General Appearance General appearance: Present: obese, chronically ill EENT: Present: ATNC, hearing intact, vision intact Neck: Present: supple Respiratory: Present: clear Cardiology: Present: edema (Generalized non-pitting. ), normal S1, normal S2 Dialysis Vascular Access: Venous Catheter (DRSG C/D/I.) Gastrointestinal: Present: normoactive bowel sounds, no tenderness, no guarding Integumentary: Present: no rash, warm and dry Neurologic: Present: confused, disoriented Psychiatric: Present: mood/affect appropriate, cooperative - Lab 07/31/17 04:30 07/31/17 04:30 Most recent lab results ABG pH 7.23 pH Units (7.32-7.45) L 07/27/17 11:08 ABG pCO2 68 mmHg (35-45) H 07/27/17 11:08 ABG pO2 59 mmHg (85-104) L 07/27/17 11:08 ABG HCO3 28 mEq/L (21-27) H 07/27/17 11:08 ABG O2 Saturation 84 % (95-98) L 07/27/17 11:08 Calcium 11.9 mg/dL (8.6-10.3) H 07/31/17 04:30 Phosphorus 4.5 mg/dL (2.7-4.5) 07/28/17 03:33 Magnesium 2.3 mg/dL (1.6-2.6) 07/28/17 03:33 - VTE Documentation of Mechanical Device: Graduated compression elastic hosiery Consult Discharge Plan - Plan Referrals: Yaa Sanderson CNP [Primary Care Provider] -
--- NOTE | 2017-07-31 10:15 | Pulmonology Progress Note ---
<GabrielleCeci dias M - Last Filed: 07/31/17 15:39> Date of Encounter: 07/31/17 Objective PUL Vital signs: Last Vital Signs Temp 97.5 F L 07/31/17 08:00 Pulse 81 07/31/17 08:00 Resp 14 07/31/17 08:00 BP 126/98 07/31/17 08:00 Pulse Ox 100 07/31/17 08:00 Results - Laboratory Findings CBC and BMP: 07/31/17 04:30 07/31/17 04:30 ABG ABG pH 7.23 pH Units (7.32-7.45) L 07/27/17 11:08 ABG pCO2 68 mmHg (35-45) H 07/27/17 11:08 ABG pO2 59 mmHg (85-104) L 07/27/17 11:08 ABG O2 Saturation 84 % (95-98) L 07/27/17 11:08 PT/INR, D-dimer PT 15.3 Seconds (9.4-12.1) H 07/27/17 11:13 Abnormal lab findings: Abnormal lab results WBC 18.8 K/mcL (4.3-11.1) H 07/31/17 04:30 RBC 3.47 M/mcL (3.82-4.97) L 07/31/17 04:30 Hgb 9.8 g/dL (11.5-15.4) L 07/31/17 04:30 Hct 34.3 % (35.3-44.9) L 07/31/17 04:30 MCHC 28.6 g/dL (31.6-35.5) L 07/31/17 04:30 RDW 15.8 % (11.5-14.5) H 07/31/17 04:30 Plt Count 91 K/mcL (140-400) L 07/31/17 04:30 MPV 12.7 fL (9.4-12.4) H 07/31/17 04:30 Band Neutrophils % 6.0 % (0-4) H 07/28/17 03:33 Neutrophils # 16.7 K/mcL (1.6-8.9) H 07/31/17 04:30 Nucleated RBCs/100 WBC 0.5 /100 WBC (0) H 07/31/17 04:30 Toxic Granulation Present (Not Present) A 07/31/17 04:30 Platelet Estimate Decreased (Normal) L 07/31/17 04:30 Large Platelets Present (Not Present) A 07/30/17 04:50 Hypochromasia Present (Not Present) A 07/31/17 04:30 ESR 21 mm/hr (0-15) H 07/28/17 15:35 PT 15.3 Seconds (9.4-12.1) H 07/27/17 11:13 APTT 38.4 Seconds (26.0-36.0) H 07/28/17 03:33 ABG pH 7.23 pH Units (7.32-7.45) L 07/27/17 11:08 ABG pCO2 68 mmHg (35-45) H 07/27/17 11:08 ABG pO2 59 mmHg (85-104) L 07/27/17 11:08 ABG HCO3 28 mEq/L (21-27) H 07/27/17 11:08 ABG Total CO2 31 mEq/L (20-26) H 07/27/17 11:08 ABG O2 Saturation 84 % (95-98) L 07/27/17 11:08 VBG pH 7.19 pH Units (7.32-7.42) L* 07/27/17 17:59 Potassium 3.4 mEq/L (3.5-5.1) L 07/31/17 04:30 Carbon Dioxide 31 mEq/L (23-29) H 07/31/17 04:30 BUN 48 mg/dL (8-23) H 07/31/17 04:30 Creatinine 1.60 mg/dL (0.60-1.20) H 07/31/17 04:30 Est GFR ( Amer) 38 (> 60) L 07/31/17 04:30 Est GFR (Non-Af Amer) 31 (> 60) L 07/31/17 04:30 BUN/Creatinine Ratio 30 (6-26) H 07/31/17 04:30 Glucose 184 mg/dL (70-105) H 07/31/17 04:30 POC Glucose 183 mg/dL (70-99) H 07/31/17 05:43 Hemoglobin A1c 9.2 % (-5.6) H 07/23/17 05:09 Calculated Osmolality 313 (280-300) H 07/31/17 04:30 Calcium 11.9 mg/dL (8.6-10.3) H 07/31/17 04:30 Direct Bilirubin 0.4 mg/dL (0.0-0.2) H 07/28/17 03:33 Alkaline Phosphatase 319 Units/L (34-104) H 07/28/17 03:33 C-Reactive Protein 237 mg/L (Less than 10) H 07/28/17 15:35 Serum Total Protein 5.5 g/dL (6.4-8.9) L 07/28/17 03:33 Globulin 1.7 g/dL (2.4-3.5) L 07/28/17 03:33 Amylase < 10 Units/L (29-103) L 07/28/17 15:35 Urine Clarity Cloudy (Clear) A 07/29/17 01:26 Urine Protein 100 mg/dL (Neg-Trace) H 07/29/17 01:26 Urine Blood Moderate (Negative) H 07/29/17 01:26 Ur Leukocyte Esterase Large (Negative) H 07/29/17 01:26 Urine Microscopic RBC 5-15 per hpf (0-3) H 07/29/17 01:26 Urine Microscopic WBC TNTC per hpf (0-3) H 07/29/17 01:26 - Microbiology Findings Microbiology Findings: Microbiology, Last 48 Hours 07/29/17 01:26 Urine Culture - Final Urine,[place] Pseudomonas aeruginosa Vanc. Resistant Enterococcus 07/29/17 12:06 Blood Culture - Preliminary Peripheral Venipuncture No growth. 07/29/17 11:03 Blood Culture - Preliminary Peripheral Venipuncture No growth. 07/27/17 15:55 Blood Culture - Preliminary Peripheral Venipuncture No growth. 07/27/17 17:32 Blood Culture - Preliminary Peripheral Venipuncture No growth. - Clinical Findings Intake & Output: Intake & Output 07/30/17 07/31/17 07/31/17 23:59 07:59 15:59 Intake Total 6618.78 / 6618.78 7160 / 7160 0 / 0 Output Total 2546 / 2546 1868 / 1868 544 / 544 Balance 4072.78 / 4072.78 5292 / 5292 -544 / -544 Weight 125.4 kg Consult Discharge Plan - Plan Referrals: Yaa Sanderson, CONFERENCE ORGANIZER [Primary Care Provider] - - Attending Attestation I examined this patient and my medical decision-making was reviewed with the Resident Physician. I agree with the documented findings, disposition and treatment plan as described except to the extent set forth below. Patient seen and examined. Labs, radiology, chart personally reviewed. 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 Will lower sedation due to risk of hypoventilation. Pulmonary: Acceptable oxygenation and ventilation on NIV, however she is at risk for invasive ventilation. Patient at risk of aspiration. Patient POA didnt ' want trach first, but now she might have changed her mind and palliative to follow up. She will need to be transferred to another facility if surgery will not plan for PEG tube. Cardiovascular: Patient remain on low dose Levophed and not tolerating removing fluid. GI: Nutrition per dietary and GI prophylaxis per routine. It is complicated situation, it is not recommend to have NG due to aspiration. Patient not candidate in my opinion for PEG due to ascites and agree with Dr. Bolden's recommendation.. Heme: DVT prophylaxis per routine ID: Continue antibiotics and plan to de-escalation. Renal; urine out put and renal funtion reviewed Endorcine: blood glucose is monitored Lines: all lines checked and no evidence of infections Skin: skin care to prevent pressure ulcers per nursing routine care Overall poor prognosis and I feel this patient need to be comfort care. Palliative care to follow up with family. Subsequently I had a family meeting with the daughter who is power of title attorney and her in the presence of palliative care and surgery team and the nurse taking care of the patient. I have given her my recommendation the best course of action would be to keep her comfortable without invasive procedure such as tracheostomy and PEG tube and he next to 3 days if no improvement then to keep her comfortable care only. She understand and she agreed with the plan. <Marion Bolaños - Last Filed: 08/01/17 14:14> Date of Encounter: 08/01/17 Time of Encounter: 10:14 Assessment and Plan (1) Shock Current Visit: Yes Status: Acute Etiology remains unclear--cardiogenic vs sepsis vs ? Hypothermia (< 96.8 F) intermittently despite warming blanket Hypotension requiring vasopressors, BiPAP for acute respiratory failure, lactate initially >2.[address] abd shows edema w/o infectious source CT leg leg shows possible cellulitis vs edema, but no evidence for deep fasciitis, myositis, or abscess Blood cultures 07/27/17 and 07/29/17 have shown no growth to date Urine cultures show pseudomonas aeruginosa and VRE Continues to require vasopressor support Plan Continue Levophed ID following Day 4 on cefepime and daptomycin (2) Hypotension Current Visit: Yes Status: Acute Unclear etiology. Cardiogenic vs sepsis vs ? Labile BP and pulse despite having titrated with Levophed CRRT day 4 Plan Continue Levophed Continue to hold diuretics Qualifiers: Hypotension type: unspecified hypotension type Qualified Code(s): I95.9 - Hypotension, unspecified (3) Acute respiratory failure Current Visit: Yes Status: Acute Likely secondary to CHF exacerbation Tolerating oxymask with BiPAP at night 07/27/17 ABG showed respiratory acidosis, likely acute in nature 07/27/17 CXR shows worsening pulmonary edema with bilateral pleural effusions and bilateral opacities Good oxygenation saturation on oxymask Plan Continue oxymask, BiPAP @ night Continue holding diuretics Qualifiers: Respiratory failure complication: hypoxia and hypercapnia Qualified Code(s) : J96.01 - Acute respiratory failure with hypoxia; J96.02 - Acute respiratory failure with hypercapnia (4) CKD (chronic kidney disease) Current Visit: Yes Status: Chronic Acute on CKD Stage III BUN/Cr improved since starting CRRT UOP remains poor 07/27/17 started CRRT Plan Continue avoiding nephrotoxins and renal dose meds Nephro following Continue CRRT Qualifiers: Chronic kidney disease stage: stage 3 (moderate) Qualified Code(s): N18.3 - Chronic kidney disease, stage 3 (moderate) (5) UTI (urinary tract infection) Current Visit: Yes Status: Acute Urine culture results show VRE and Pseudomonas aeruginosa Potentially CAUTI--danielle catheter inserted 07/23/17 Plan Contact precautions Exchange danielle ID following Continue current antibiotic regimen Qualifiers: Urinary tract infection type: site unspecified Hematuria presence: without hematuria Qualified Code(s): N39.0 - Urinary tract infection, site not specified (6) Leg swelling Current Visit: Yes Status: Acute Likely chronic d/t underlying CKD, chronic CHF, venous insufficiency LLE cellulitis may be contributing--treated with IV clindamycin x 5 days then IV rocephin (both d/c'd) Diuretics being held d/t renal failure Compression wraps bilateral LE Plan Antibiotic regimen as in "Cellulitis" Continue to hold diuretics Continue compression wraps, change daily (7) Cellulitis Current Visit: Yes Status: Acute LLE Causative organism unclear Treated with IV clindamycin x5 days then switched to IV rocephin (d/c'd) CT left lower extremity showed edema vs cellulitis, without evidence for abscess , myositis, fasciitis CT abd only showing edema, no infectious process. Blood cultures from 07/27/17 and 07/29/17 have had no growth to lindsay Plan ID following Daptomycin and Cefepime (day 4) dosed for CRRT Qualifiers: Site of cellulitis: extremity Site of cellulitis of extremity: lower extremity Laterality: unspecified laterality Qualified Code(s): L03.119 - Cellulitis of unspecified part of limb (8) Atrial fibrillation Current Visit: Yes Status: Chronic Afib with RVR HR ranging 80s- 110s Eliquis at home for anticoagulation Metoprolol currently held d/t hypotension Plan Continue to hold Eliquis while getting CRRT Anticoagulated on heparin Qualifiers: Atrial fibrillation type: paroxysmal Qualified Code(s): I48.0 - Paroxysmal atrial fibrillation (9) DMII (diabetes mellitus, type 2) Current Visit: Yes Status: Chronic Continue SSI and basal insulin Qualifiers: 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 Diabetes mellitus complication status: with kidney complications Diabetes mellitus complication detail: with chronic kidney disease Chronic kidney disease stage : stage 3 (moderate) Qualified Code(s): E11.22 - Type 2 diabetes mellitus with diabetic chronic kidney disease; N18.3 - Chronic kidney disease, stage 3 ( moderate); 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 At this time, daughter is not ready to transition pt to DNR-CC because there had been a decrease in pt' s white count and because of an output of urine of 7mL. I informed pt of my discussion with general surgery regarding PEG placement. General surgery does not recommend PEG placement in part because family was against tracheostomy. At this time, family is reconsidering their position on tracheostomy. Subjective Principal diagnosis: acute on chronic kidney disease Interval history: Pt seen and examined this morning at bedside. She is responsive to pain and opens eyes spontaneously, but doesn't follow commands. Pt is still receiving sedation and pain med drips, pt moans intermittently. Objective PUL Vital signs: Last Vital Signs Temp 97.5 F L 07/31/17 08:00 Pulse 81 07/31/17 08:00 Resp 14 07/31/17 08:00 BP 126/98 07/31/17 08:00 Pulse Ox 100 07/31/17 08:00 General: sedated from precedex and fentanyl, vital signs noted HEENT: head normocephalic/atraumatic, PERRL, oral mucous membranes dry Neck: right-sided HD cath connected to CRRT Cardio: irregular rhythm, intermittently tachycardic, distant heart sounds Pulm: diminished airflow bilateral, no wheezing, oxymask saturating well Abdomen: soft, BS+, nontender to palpation, stephoscope leaves indentations after auscultating for bowel sounds Extremities: bilat LE pressure wraps C/D/I, no cyanosis Neuro: responds to painful stimuli, opens eyes spontaneously, doesn't follow commands, moaning Skin: visible skin is clean, dry, intact, pallor Results - Laboratory Findings CBC and BMP: 08/01/17 03:45 08/01/17 12:48 ABG ABG pH 7.23 pH Units (7.32-7.45) L 07/27/17 11:08 ABG pCO2 68 mmHg (35-45) H 07/27/17 11:08 ABG pO2 59 mmHg (85-104) L 07/27/17 11:08 ABG O2 Saturation 84 % (95-98) L 07/27/17 11:08 PT/INR, D-dimer PT 15.3 Seconds (9.4-12.1) H 07/27/17 11:13 Abnormal lab findings: Abnormal lab results WBC 18.8 K/mcL (4.3-11.1) H 07/31/17 04:30 RBC 3.47 M/mcL (3.82-4.97) L 07/31/17 04:30 Hgb 9.8 g/dL (11.5-15.4) L 07/31/17 04:30 Hct 34.3 % (35.3-44.9) L 07/31/17 04:30 MCHC 28.6 g/dL (31.6-35.5) L 07/31/17 04:30 RDW 15.8 % (11.5-14.5) H 07/31/17 04:30 Plt Count 91 K/mcL (140-400) L 07/31/17 04:30 MPV 12.7 fL (9.4-12.4) H 07/31/17 04:30 Band Neutrophils % 6.0 % (0-4) H 07/28/17 03:33 Neutrophils # 16.7 K/mcL (1.6-8.9) H 07/31/17 04:30 Nucleated RBCs/100 WBC 0.5 /100 WBC (0) H 07/31/17 04:30 Toxic Granulation Present (Not Present) A 07/31/17 04:30 Platelet Estimate Decreased (Normal) L 07/31/17 04:30 Large Platelets Present (Not Present) A 07/30/17 04:50 Hypochromasia Present (Not Present) A 07/31/17 04:30 ESR 21 mm/hr (0-15) H 07/28/17 15:35 PT 15.3 Seconds (9.4-12.1) H 07/27/17 11:13 APTT 38.4 Seconds (26.0-36.0) H 07/28/17 03:33 ABG pH 7.23 pH Units (7.32-7.45) L 07/27/17 11:08 ABG pCO2 68 mmHg (35-45) H 07/27/17 11:08 ABG pO2 59 mmHg (85-104) L 07/27/17 11:08 ABG HCO3 28 mEq/L (21-27) H 07/27/17 11:08 ABG Total CO2 31 mEq/L (20-26) H 07/27/17 11:08 ABG O2 Saturation 84 % (95-98) L 07/27/17 11:08 VBG pH 7.19 pH Units (7.32-7.42) L* 07/27/17 17:59 Potassium 3.4 mEq/L (3.5-5.1) L 07/31/17 04:30 Carbon Dioxide 31 mEq/L (23-29) H 07/31/17 04:30 BUN 48 mg/dL (8-23) H 07/31/17 04:30 Creatinine 1.60 mg/dL (0.60-1.20) H 07/31/17 04:30 Est GFR ( Amer) 38 (> 60) L 07/31/17 04:30 Est GFR (Non-Af Amer) 31 (> 60) L 07/31/17 04:30 BUN/Creatinine Ratio 30 (6-26) H 07/31/17 04:30 Glucose 184 mg/dL (70-105) H 07/31/17 04:30 POC Glucose 183 mg/dL (70-99) H 07/31/17 05:43 Hemoglobin A1c 9.2 % (-5.6) H 07/23/17 05:09 Calculated Osmolality 313 (280-300) H 07/31/17 04:30 Calcium 11.9 mg/dL (8.6-10.3) H 07/31/17 04:30 Direct Bilirubin 0.4 mg/dL (0.0-0.2) H 07/28/17 03:33 Alkaline Phosphatase 319 Units/L (34-104) H 07/28/17 03:33 C-Reactive Protein 237 mg/L (Less than 10) H 07/28/17 15:35 Serum Total Protein 5.5 g/dL (6.4-8.9) L 07/28/17 03:33 Globulin 1.7 g/dL (2.4-3.5) L 07/28/17 03:33 Amylase < 10 Units/L (29-103) L 07/28/17 15:35 Urine Clarity Cloudy (Clear) A 07/29/17 01:26 Urine Protein 100 mg/dL (Neg-Trace) H 07/29/17 01:26 Urine Blood Moderate (Negative) H 07/29/17 01:26 Ur Leukocyte Esterase Large (Negative) H 07/29/17 01:26 Urine Microscopic RBC 5-15 per hpf (0-3) H 07/29/17 01:26 Urine Microscopic WBC TNTC per hpf (0-3) H 07/29/17 01:26 - Microbiology Findings Microbiology Findings: Microbiology, Last 48 Hours 07/29/17 01:26 Urine Culture - Final Urine,[place] Pseudomonas aeruginosa Vanc. Resistant Enterococcus 07/29/17 12:06 Blood Culture - Preliminary Peripheral Venipuncture No growth. 07/29/17 11:03 Blood Culture - Preliminary Peripheral Venipuncture No growth. 07/27/17 15:55 Blood Culture - Preliminary Peripheral Venipuncture No growth. 07/27/17 17:32 Blood Culture - Preliminary Peripheral Venipuncture No growth. - Clinical Findings Intake & Output: Intake & Output 07/30/17 07/31/17 07/31/17 23:59 07:59 15:59 Intake Total 6618.78 / 6618.78 7160 / 7160 0 / 0 Output Total 2546 / 2546 1868 / 1868 544 / 544 Balance 4072.78 / 4072.78 5292 / 5292 -544 / -544 Weight 125.4 kg - VTE Documentation of Mechanical Device: Graduated compression elastic hosiery
[2017-07-31] MEDS: Norepinephrine 4 MG in D5% in Water 250 ML IVC SCH (10:28)
--- NOTE | 2017-07-31 10:54 | Palliative Progress Note ---
Date of Encounter: 07/31/17 Time of Encounter: 09:50 - Assessment and plan (1) Cellulitis Current Visit: Yes Status: Acute Assessment and plan: Patient's WBC improved over the last 24 hours. Infectious disease consult noted cellulitis to lower abdomen, in addition to BLE. Treat with Antibiotics per Infectious Disease. Qualifiers: Site of cellulitis: extremity Site of cellulitis of extremity: lower extremity Laterality: unspecified laterality Qualified Code(s): L03.119 - Cellulitis of unspecified part of limb (2) DMII (diabetes mellitus, type 2) Current Visit: Yes Status: Chronic Qualifiers: Diabetes mellitus intermediate insulin use: with intermediate use Diabetes mellitus complication status: with kidney complications Diabetes mellitus complication detail: with chronic kidney disease Chronic kidney disease stage : stage 3 (moderate) Qualified Code(s): E11.22 - Type 2 diabetes mellitus with diabetic chronic kidney disease; N18.3 - Chronic kidney disease, stage 3 ( moderate); Z79.4 - alf (current) use of insulin (3) CKD (chronic kidney disease) Current Visit: Yes Status: Chronic Assessment and plan: Nephrology following. Patient remains on Rekha. Spoke with Nephrology [facility] regarding dialysis; patient will need hemodialysis post discharge, continue Rekha at this time. Qualifiers: Chronic kidney disease stage: stage 3 (moderate) Qualified Code(s): N18.3 - Chronic kidney disease, stage 3 (moderate) (4) Chronic venous stasis dermatitis Current Visit: Yes Status: Chronic Assessment and plan: Patient having new wound from pressure from [place] to BLE noted during assessment. (5) Dementia Current Visit: Yes Status: Chronic Qualifiers: Dementia type: Alzheimer's disease Alzheimer's disease onset: late-onset Dementia behavioral disturbance: with behavioral disturbance Qualified Code(s) : G30.1 - Alzheimer's disease with late onset; F02.81 - Dementia in other diseases classified elsewhere with behavioral disturbance (6) Acute respiratory failure Current Visit: Yes Status: Acute Assessment and plan: Patient has been able to wear mask at 2L for oxygenation, tolerated well. Continue oxygen therapy. Qualifiers: Respiratory failure complication: hypoxia and hypercapnia Qualified Code(s) : J96.01 - Acute respiratory failure with hypoxia; J96.02 - Acute respiratory failure with hypercapnia (7) Goals of care, counseling/discussion Current Visit: Yes Status: Acute Assessment and plan: Family meeting set for 2 pm today. 1445: Family meeting held with Mono Gaytan CNP Surgery, Louie CHARLES ICU, screen writer, and Dr. Cisneros Pulmonary/ICU. Explained risks of surgery for PEG/Trach placement and inability to perform here, verbalized understanding. Reviewed goals of care for improved comfort control. Family and Multidisciplinary team meeting agreed to change CODE STATUS to DNRCCA/DNI, no PEG or Trach placement, and continued antibiotic/BP/Temperature/Rekha (Kidney) support over the weekend. Desires to see how patient is doing on Thursday with consideration to transition to comfort care/hospice at that time. Palliative care was requested by family to provide family with updates over the weekend regarding clinical status. Did explain to family that if patient would transition to [facility] that [facility] is the only F with [facility] in [facility]; family verbalized understanding. (8) Pain Current Visit: Yes Status: Acute Assessment and plan: Patient having nonverbal signs of pain at present time during dressing change. Continue Fentanyl Infusion per ICU protocol. - Time Spent With Patient Total time spent is greater than 50% in coordination of care (as documented) at patient's floor/unit and/or counseling patient: - Subjective Interval history: Patient resting in bed with eyes closed during assessment; no reaction noted with verbal and tactile stimulation. Patient has Precedex and Fentanyl drip infusing for increased comfort. No family present at bedside. ARACELI Palma present at bedside completing BLE dressing change. WBC and Creatinine have improved over the last 24 hours; BUN worsened. Patient continues to be receiving Rekha at this time. Patient remains afebrile, barehugger in place and Temperature continued to drop to 96.5 over night. Patient's oxygen saturation continues to remain 95-98% with 2L Via [employer]ask. Patient continues to not have any type of nutrition since 07/27/17. Spoke with Dr. Kline prior to initiation of ICU rounds as she had just spoke with patient's daughter July; reported that daughter may be agreeable to Tracheostomy to have PEG tube placed. Dr. Cisneros requested family be contacted for meeting today to further discuss goals of care. Mono Gaytan CNP spoke to regarding possibility of PEG placement as patient had changed her mind regarding tracheostomy; Dr. Bolden is now on vacation, will discuss case with Dr. Zavala, am awaiting return phone call. Family meeting set for 2 pm this afternoon. - Constitutional Vitals: Abnormal lab results WBC 18.8 K/mcL (4.3-11.1) H 07/31/17 04:30 RBC 3.47 M/mcL (3.82-4.97) L 07/31/17 04:30 Hgb 9.8 g/dL (11.5-15.4) L 07/31/17 04:30 Hct 34.3 % (35.3-44.9) L 07/31/17 04:30 MCHC 28.6 g/dL (31.6-35.5) L 07/31/17 04:30 RDW 15.8 % (11.5-14.5) H 07/31/17 04:30 Plt Count 91 K/mcL (140-400) L 07/31/17 04:30 MPV 12.7 fL (9.4-12.4) H 07/31/17 04:30 Band Neutrophils % 6.0 % (0-4) H 07/28/17 03:33 Neutrophils # 16.7 K/mcL (1.6-8.9) H 07/31/17 04:30 Nucleated RBCs/100 WBC 0.5 /100 WBC (0) H 07/31/17 04:30 Toxic Granulation Present (Not Present) A 07/31/17 04:30 Platelet Estimate Decreased (Normal) L 07/31/17 04:30 Large Platelets Present (Not Present) A 07/30/17 04:50 Hypochromasia Present (Not Present) A 07/31/17 04:30 ESR 21 mm/hr (0-15) H 07/28/17 15:35 PT 15.3 Seconds (9.4-12.1) H 07/27/17 11:13 APTT 38.4 Seconds (26.0-36.0) H 07/28/17 03:33 ABG pH 7.23 pH Units (7.32-7.45) L 07/27/17 11:08 ABG pCO2 68 mmHg (35-45) H 07/27/17 11:08 ABG pO2 59 mmHg (85-104) L 07/27/17 11:08 ABG HCO3 28 mEq/L (21-27) H 07/27/17 11:08 ABG Total CO2 31 mEq/L (20-26) H 07/27/17 11:08 ABG O2 Saturation 84 % (95-98) L 07/27/17 11:08 VBG pH 7.19 pH Units (7.32-7.42) L* 07/27/17 17:59 Potassium 3.4 mEq/L (3.5-5.1) L 07/31/17 04:30 Carbon Dioxide 31 mEq/L (23-29) H 07/31/17 04:30 BUN 48 mg/dL (8-23) H 07/31/17 04:30 Creatinine 1.60 mg/dL (0.60-1.20) H 07/31/17 04:30 Est GFR ( Amer) 38 (> 60) L 07/31/17 04:30 Est GFR (Non-Af Amer) 31 (> 60) L 07/31/17 04:30 BUN/Creatinine Ratio 30 (6-26) H 07/31/17 04:30 Glucose 184 mg/dL (70-105) H 07/31/17 04:30 POC Glucose 183 mg/dL (70-99) H 07/31/17 05:43 Hemoglobin A1c 9.2 % (-5.6) H 07/23/17 05:09 Calculated Osmolality 313 (280-300) H 07/31/17 04:30 Calcium 11.9 mg/dL (8.6-10.3) H 07/31/17 04:30 Direct Bilirubin 0.4 mg/dL (0.0-0.2) H 07/28/17 03:33 Alkaline Phosphatase 319 Units/L (34-104) H 07/28/17 03:33 C-Reactive Protein 237 mg/L (Less than 10) H 07/28/17 15:35 Serum Total Protein 5.5 g/dL (6.4-8.9) L 07/28/17 03:33 Globulin 1.7 g/dL (2.4-3.5) L 07/28/17 03:33 Amylase < 10 Units/L (29-103) L 07/28/17 15:35 Urine Clarity Cloudy (Clear) A 07/29/17 01:26 Urine Protein 100 mg/dL (Neg-Trace) H 07/29/17 01:26 Urine Blood Moderate (Negative) H 07/29/17 01:26 Ur Leukocyte Esterase Large (Negative) H 07/29/17 01:26 Urine Microscopic RBC 5-15 per hpf (0-3) H 07/29/17 01:26 Urine Microscopic WBC TNTC per hpf (0-3) H 07/29/17 01:26 General appearance: Present: mild distress (with dressing change) - Head Head exam: Present: atraumatic, normal inspection - Eye Eye exam: Absent: periorbital swelling, periorbital tenderness Pupils: Present: normal accommodation, PERRL - ENT ENT exam: Present: mucous membranes dry, normal external ear exam - Neck Neck exam: Present: normal inspection - Respiratory Respiratory exam: Present: rhonchi, wheezes. Absent: respiratory distress - Cardiovascular Cardiovascular exam: Present: irregular rhythm - GI/Abdominal GI/Abdominal exam: Present: hypoactive bowel sounds, soft. Absent: tenderness - Rectal Rectal exam: Present: deferred - Expanded Exam Female exam: Present: deferred - Extremities Exam Extremities exam: Absent: calf tenderness, pedal edema (pedal edema negative. Upper leg edema present.) - Neurological Exam Neurological exam: Present: alert. Absent: oriented X3 (unable to follow commands) - Psychiatric Psychiatric exam: Present: anxious - Skin Skin exam: Present: dry. Absent: intact (many wounds noted to BLE.) Palliative Quality Palliative Quality: Screen for Code Status: Yes, Screen for Goals of Care: Yes, Screen for Pain: Yes, If Pain Regimen Started, Initiate Bowel Regimen: NA, Screen for Nausea/Vomitting: Yes Code Status: 07/22/17 20:15 Resuscitation Status: Active [RES] Routine Comment: Resuscitation Status: Full Code 07/28/17 14:24 DNR [Resuscitation Status: Active] [RES] Routine Comment: Ok with short term intubation. Resuscitation Status: DNR-Comfort Care-Arrest - Labs CBC & Chem 7: 07/31/17 04:30 07/31/17 04:30 Labs: Laboratory Results - last 24 hr 07/30/17 07/30/17 07/30/17 11:07 12:22 17:35 WBC RBC Hgb Hct MCV MCH MCHC RDW Plt Count MPV Immature Gran % Seg Neutrophils % Lymphocytes % Monocytes % Eosinophils % Basophils % Neutrophils # Lymphocytes # Monocytes # Eosinophils # Basophils # Nucleated RBCs/100 WBC Toxic Granulation Platelet Estimate Hypochromasia Sodium Potassium Chloride Carbon Dioxide BUN Creatinine Est GFR ( Amer) Est GFR (Non-Af Amer) BUN/Creatinine Ratio Glucose POC Glucose 124 H 143 H Calculated Osmolality Calcium Venous Ioniz Calcium 1.12 L 07/30/17 07/30/17 07/30/17 18:29 23:05 23:29 WBC RBC Hgb Hct MCV MCH MCHC RDW Plt Count MPV Immature Gran % Seg Neutrophils % Lymphocytes % Monocytes % Eosinophils % Basophils % Neutrophils # Lymphocytes # Monocytes # Eosinophils # Basophils # Nucleated RBCs/100 WBC Toxic Granulation Platelet Estimate Hypochromasia Sodium Potassium Chloride Carbon Dioxide BUN Creatinine Est GFR ( Amer) Est GFR (Non-Af Amer) BUN/Creatinine Ratio Glucose POC Glucose 194 H Calculated Osmolality Calcium Venous Ioniz Calcium 1.17 1.13 L 07/31/17 07/31/17 07/31/17 04:30 04:30 04:45 WBC 18.8 H RBC 3.47 L Hgb 9.8 L Hct 34.3 L MCV 98.8 MCH 28.2 MCHC 28.6 L RDW 15.8 H Plt Count 91 L MPV 12.7 H Immature Gran % 2.3 Seg Neutrophils % 88.7 Lymphocytes % 4.9 Monocytes % 2.8 Eosinophils % 1.0 Basophils % 0.3 Neutrophils # 16.7 H Lymphocytes # 0.9 Monocytes # 0.5 Eosinophils # 0.2 Basophils # 0.1 Nucleated RBCs/100 WBC 0.5 H Toxic Granulation Present A Platelet Estimate Decreased L Hypochromasia Present A Sodium 143 Potassium 3.4 L Chloride 105 Carbon Dioxide 31 H BUN 48 H Creatinine 1.60 H Est GFR ( Amer) 38 L Est GFR (Non-Af Amer) 31 L BUN/Creatinine Ratio 30 H Glucose 184 H POC Glucose Calculated Osmolality 313 H Calcium 11.9 H Venous Ioniz Calcium 1.19 07/31/17 05:43 WBC RBC Hgb Hct MCV MCH MCHC RDW Plt Count MPV Immature Gran % Seg Neutrophils % Lymphocytes % Monocytes % Eosinophils % Basophils % Neutrophils # Lymphocytes # Monocytes # Eosinophils # Basophils # Nucleated RBCs/100 WBC Toxic Granulation Platelet Estimate Hypochromasia Sodium Potassium Chloride Carbon Dioxide BUN Creatinine Est GFR ( Amer) Est GFR (Non-Af Amer) BUN/Creatinine Ratio Glucose POC Glucose 183 H Calculated Osmolality Calcium Venous Ioniz Calcium - Impressions Impressions Lower Extremity CT 07/30/17 14:00 IMPRESSION: 1. Nonspecific moderate edema of the distal thigh and proximal lower leg which may represent bland edema versus cellulitis as is also seen on the visualized portion of the medial right lower extremity. Extensive broad-based ulcerations of the left lower leg. 2. No CT evidence of abscess, deep fasciitis, or myositis. 3. Decreased bone mineral density. Normal left lower extremity appointments with multifocal knee osteoarthritis and 6 millimeter intra-articular body. Moderate midfoot neuropathic arthropathy. 4. There is no acute osseous abnormality. No evidence of septic arthropathy or osteomyelitis. D/ / Andrzej He MD / Andrzej He MD Interpreting Provider: Andrzej He MD - ABG Interpretation ABG results: ABG ABG pH 7.23 pH Units (7.32-7.45) L 07/27/17 11:08 ABG pCO2 68 mmHg (35-45) H 07/27/17 11:08 ABG pO2 59 mmHg (85-104) L 07/27/17 11:08 ABG O2 Saturation 84 % (95-98) L 07/27/17 11:08 PT/INR, D-dimer PT 15.3 Seconds (9.4-12.1) H 07/27/17 11:13 Consult Discharge Plan - Plan Referrals: Yaa Sanderson, [facility] [Primary Care Provider] -
[2017-07-31 11:26] LABS: VBG Ionized Calcium 1.19 mmol/L (1.15-1.35)
--- NOTE | 2017-07-31 15:05 | Event Note ---
Date of Encounter: 07/31/17 Time of Encounter: 14:58 Surgery team was asked to see the patient again and evaluate for possible peg tube placement. I did see the patient with Dr. Zavala and do to the patient's body habitus a endoscopic peg tube placement is not an option. Placement is not physically possible due to the thickness of her abdominal wall and landmarks. The patient is not a candidate for an open g-tube placement due to her multiple co-morbidities. The risks outweigh the benefits at this time. Interventional radiology may be a possibility but would require an NG tube for insuflation of the stomach. Patient's respiratory status is not stable enough for this type of procedure at this time. A family meeting was held this afternoon with most disciplines involved. The decision was made to not proceed with any further invasive procedures at this time. Surgery will sign off at this time. Please call with any further questions/ concerns.
[2017-07-31 17:16] LABS: VBG Ionized Calcium 1.36 mmol/L (1.15-1.35)
[2017-07-31 19:06] LABS: VBG Ionized Calcium 1.28 mmol/L (1.15-1.35)
[2017-07-31] MEDS: FentaNYL (PF) 1,000 MCG in 0.9 % Sodium Chloride 80 ML IVC SCH (23:00)
[2017-08-01] MEDS: CALCIUM CHLORIDE IVPB SCH ×6 (00:03→19:32)
[2017-08-01] MEDS: PRISMASATE BGK IVPB SCH ×6 (00:03→19:32)
[2017-08-01] MEDS: Calcium Chloride 4,000 MG in 0.9 % Sodium Chloride 1,000 ML CRRT SCH ×2 (00:12→06:47)
[2017-08-01] MEDS: Insulin LISPRO 300 UNITS/3 ML VIAL SQ SCH ×4 (00:17→18:15)
[2017-08-01] MEDS: Dexmedetomidine HCl 400 MCG/100 ML MLS IVC PRN ×2 (00:55→15:35)
[2017-08-01 04:01] LABS: Nucleated Red Blood Cells 0.7 /100 WBC (0); Red Cell Distribution Width 15.8 % (11.5-14.5)
[2017-08-01 04:03] LABS: Basophils % 0.3 %; Eosinophils # 0.1 K/mcL (0.0-0.6); Eosinophils % 1.1 %; Hematocrit 33.8 % (35.3-44.9); Hemoglobin 9.3 g/dL (11.5-15.4); Immature Granulocytes % 1.8 % (0-4); Lymphocytes # 0.7 K/mcL (0.6-4.6); Lymphocytes % 6.2 %; Mean Corpuscular HGB Conc 27.5 g/dL (31.6-35.5); Mean Corpuscular Hemoglobin 28.4 pg (28.0-33.3); Mean Platelet Volume 12.8 fL (9.4-12.4); Monocytes # 0.6 K/mcL (0.0-1.3); Monocytes % 5.4 %; Neutrophils # 9.8 K/mcL (1.6-8.9); Red Blood Count 3.28 M/mcL (3.82-4.97); Segmented Neutrophils % 85.2 %
[2017-08-01 04:29] LABS: Calcium 12.3 mg/dL (8.6-10.3); Potassium 3.1 mEq/L (3.5-5.1)
[2017-08-01 04:43] LABS: Platelet Count 66 K/mcL (140-400)
[2017-08-01 04:44] LABS: Hypochromasia Present (Not Present); Platelet Estimate Decreased (Normal)
[2017-08-01] MEDS: *HR* Heparin 5,000 UNIT/ML VIAL SQ SCH ×2 (05:08→17:31)
[2017-08-01] MEDS: Cefepime HCl 2,000 MG in Water for inj. (sterile) 20 ML 20 ML IVP SCH ×2 (05:12→17:30)
[2017-08-01 05:30] LABS: Magnesium 1.5 mg/dL (1.6-2.6)
[2017-08-01] MEDS ORDERED: Potassium Phosphate 44 MEQ in 0.9 % Sodium Chloride 250 ML IVPB PRN (06:09)
[2017-08-01] MEDS: Potassium Chloride 40 MEQ/200 ML BAG IVPB PRN ×2 (06:23→13:46)
[2017-08-01 06:53] LABS: VBG Ionized Calcium 1.26 mmol/L (1.15-1.35)
--- NOTE | 2017-08-01 07:23 | Pulmonology Progress Note ---
<Nura Ramachandran - Last Filed: 08/01/17 08:41> Date of Encounter: 08/01/17 Time of Encounter: 07:22 Assessment and Plan (1) Cellulitis Current Visit: Yes Status: Acute Qualifiers: Site of cellulitis: extremity Site of cellulitis of extremity: lower extremity Laterality: unspecified laterality Qualified Code(s): L03.119 - Cellulitis of unspecified part of limb Subjective Principal diagnosis: acute on chronic kidney disease Interval history: no acute changes overnight. Had goals of care discussion with family yesterday and patient now DNR-CCA/DNI. Will continue current care without escalation until Thursday where family will reevaluate. Objective PUL Vital signs: Last Vital Signs Temp 97.2 F L 08/01/17 04:00 Pulse 68 08/01/17 07:00 Resp 12 08/01/17 07:00 BP 101/70 08/01/17 07:00 Pulse Ox 100 08/01/17 07:00 General appearance: no acute distress, other (Obtunded) Eyes: nonicteric ENT: oropharynx dry Effort: mildly labored Auscultation: bilateral: diminished breath sounds Cardiovascular: regular rate and rhythm Gastrointestinal: soft, other (distended but obese) Integumentary: normal, cellulitis (LLE) Extremities: no cyanosis, edema Musculoskeletal: no deformities unable to assess due to mental status Results - Laboratory Findings CBC and BMP: 08/01/17 03:45 08/01/17 03:45 ABG ABG pH 7.23 pH Units (7.32-7.45) L 07/27/17 11:08 ABG pCO2 68 mmHg (35-45) H 07/27/17 11:08 ABG pO2 59 mmHg (85-104) L 07/27/17 11:08 ABG O2 Saturation 84 % (95-98) L 07/27/17 11:08 PT/INR, D-dimer PT 15.3 Seconds (9.4-12.1) H 07/27/17 11:13 Abnormal lab findings: Abnormal lab results WBC 11.5 K/mcL (4.3-11.1) H 08/01/17 03:45 RBC 3.28 M/mcL (3.82-4.97) L 08/01/17 03:45 Hgb 9.3 g/dL (11.5-15.4) L 08/01/17 03:45 Hct 33.8 % (35.3-44.9) L 08/01/17 03:45 MCV 103.0 fL (83.0-100.0) H 08/01/17 03:45 MCHC 27.5 g/dL (31.6-35.5) L 08/01/17 03:45 RDW 15.8 % (11.5-14.5) H 08/01/17 03:45 Plt Count 66 K/mcL (140-400) L 08/01/17 03:45 MPV 12.8 fL (9.4-12.4) H 08/01/17 03:45 Band Neutrophils % 6.0 % (0-4) H 07/28/17 03:33 Neutrophils # 9.8 K/mcL (1.6-8.9) H 08/01/17 03:45 Nucleated RBCs/100 WBC 0.7 /100 WBC (0) H 08/01/17 03:45 Toxic Granulation Present (Not Present) A 07/31/17 04:30 Platelet Estimate Decreased (Normal) L 08/01/17 03:45 Large Platelets Present (Not Present) A 07/30/17 04:50 Hypochromasia Present (Not Present) A 08/01/17 03:45 ESR 21 mm/hr (0-15) H 07/28/17 15:35 PT 15.3 Seconds (9.4-12.1) H 07/27/17 11:13 APTT 38.4 Seconds (26.0-36.0) H 07/28/17 03:33 ABG pH 7.23 pH Units (7.32-7.45) L 07/27/17 11:08 ABG pCO2 68 mmHg (35-45) H 07/27/17 11:08 ABG pO2 59 mmHg (85-104) L 07/27/17 11:08 ABG HCO3 28 mEq/L (21-27) H 07/27/17 11:08 ABG Total CO2 31 mEq/L (20-26) H 07/27/17 11:08 ABG O2 Saturation 84 % (95-98) L 07/27/17 11:08 VBG pH 7.19 pH Units (7.32-7.42) L* 06/04/18 17:59 Potassium 3.1 mEq/L (3.5-5.1) L 08/01/17 03:45 Carbon Dioxide 34 mEq/L (23-29) H 08/01/17 03:45 BUN 37 mg/dL (8-23) H 08/01/17 03:45 Creatinine 1.63 mg/dL (0.60-1.20) H 08/01/17 03:45 Est GFR ( Amer) 37 (> 60) L 08/01/17 03:45 Est GFR (Non-Af Amer) 31 (> 60) L 08/01/17 03:45 Glucose 141 mg/dL (70-105) H 08/01/17 03:45 POC Glucose 147 mg/dL (70-99) H 08/01/17 05:12 Hemoglobin A1c 9.2 % (-5.6) H 07/23/17 05:09 Calculated Osmolality 309 (280-300) H 08/01/17 03:45 Calcium 12.3 mg/dL (8.6-10.3) H 08/01/17 03:45 Magnesium 1.5 mg/dL (1.6-2.6) L 08/01/17 03:45 Direct Bilirubin 0.4 mg/dL (0.0-0.2) H 07/28/17 03:33 Alkaline Phosphatase 319 Units/L (34-104) H 07/28/17 03:33 C-Reactive Protein 237 mg/L (Less than 10) H 07/28/17 15:35 Serum Total Protein 5.5 g/dL (6.4-8.9) L 07/28/17 03:33 Globulin 1.7 g/dL (2.4-3.5) L 07/28/17 03:33 Amylase < 10 Units/L (29-103) L 07/28/17 15:35 Procalcitonin 2.81 ng/mL (<=0.10) H 07/28/17 15:35 Urine Clarity Cloudy (Clear) A 07/29/17 01:26 Urine Protein 100 mg/dL (Neg-Trace) H 07/29/17 01:26 Urine Blood Moderate (Negative) H 07/29/17 01:26 Ur Leukocyte Esterase Large (Negative) H 07/29/17 01:26 Urine Microscopic RBC 5-15 per hpf (0-3) H 07/29/17 01:26 Urine Microscopic WBC TNTC per hpf (0-3) H 07/29/17 01:26 - Microbiology Findings Microbiology Findings: Microbiology, Last 48 Hours 07/29/17 01:26 Urine Culture - Final Urine,[place] Pseudomonas aeruginosa Vanc. Resistant Enterococcus 07/29/17 12:06 Blood Culture - Preliminary Peripheral Venipuncture No growth. 07/29/17 11:03 Blood Culture - Preliminary Peripheral Venipuncture No growth. 07/27/17 15:55 Blood Culture - Preliminary Peripheral Venipuncture No growth. 07/27/17 17:32 Blood Culture - Preliminary Peripheral Venipuncture No growth. - Clinical Findings Intake & Output: Intake & Output 07/31/17 07/31/17 08/01/17 15:59 23:59 07:59 Intake Total 1920.8 / 1920.8 1720.5 / 1720.5 6554.88 / 6554.88 Output Total 1962 / 1962 Balance -42.2 / -42.2 -299.5 / -299.5 4594.88 / 4594.88 - VTE Documentation of Mechanical Device: Graduated compression elastic hosiery Consult Discharge Plan - Plan Referrals: Yaa Sanderson, [employer] [Primary Care Provider] - <Ceci Cisneros - Last Filed: 08/02/17 08:53> Date of Encounter: 08/02/17 Objective PUL Vital signs: Last Vital Signs Temp 96.3 F L 08/01/17 08:00 Pulse 62 08/01/17 09:00 Resp 13 08/01/17 09:00 BP 88/00 08/01/17 09:00 Pulse Ox 100 08/01/17 09:00 Results - Laboratory Findings CBC and BMP: 08/02/17 02:53 08/02/17 02:53 ABG ABG pH 7.23 pH Units (7.32-7.45) L 07/27/17 11:08 ABG pCO2 68 mmHg (35-45) H 07/27/17 11:08 ABG pO2 59 mmHg (85-104) L 07/27/17 11:08 ABG O2 Saturation 84 % (95-98) L 07/27/17 11:08 PT/INR, D-dimer PT 15.3 Seconds (9.4-12.1) H 07/27/17 11:13 Abnormal lab findings: Abnormal lab results WBC 11.5 K/mcL (4.3-11.1) H 08/01/17 03:45 RBC 3.28 M/mcL (3.82-4.97) L 08/01/17 03:45 Hgb 9.3 g/dL (11.5-15.4) L 08/01/17 03:45 Hct 33.8 % (35.3-44.9) L 08/01/17 03:45 MCV 103.0 fL (83.0-100.0) H 08/01/17 03:45 MCHC 27.5 g/dL (31.6-35.5) L 08/01/17 03:45 RDW 15.8 % (11.5-14.5) H 08/01/17 03:45 Plt Count 66 K/mcL (140-400) L 08/01/17 03:45 MPV 12.8 fL (9.4-12.4) H 08/01/17 03:45 Band Neutrophils % 6.0 % (0-4) H 07/28/17 03:33 Neutrophils # 9.8 K/mcL (1.6-8.9) H 08/01/17 03:45 Nucleated RBCs/100 WBC 0.7 /100 WBC (0) H 08/01/17 03:45 Toxic Granulation Present (Not Present) A 07/31/17 04:30 Platelet Estimate Decreased (Normal) L 08/01/17 03:45 Large Platelets Present (Not Present) A 07/30/17 04:50 Hypochromasia Present (Not Present) A 08/01/17 03:45 ESR 21 mm/hr (0-15) H 07/28/17 15:35 PT 15.3 Seconds (9.4-12.1) H 07/27/17 11:13 APTT 38.4 Seconds (26.0-36.0) H 07/28/17 03:33 ABG pH 7.23 pH Units (7.32-7.45) L 07/27/17 11:08 ABG pCO2 68 mmHg (35-45) H 07/27/17 11:08 ABG pO2 59 mmHg (85-104) L 07/27/17 11:08 ABG HCO3 28 mEq/L (21-27) H 07/27/17 11:08 ABG Total CO2 31 mEq/L (20-26) H 07/27/17 11:08 ABG O2 Saturation 84 % (95-98) L 07/27/17 11:08 VBG pH 7.19 pH Units (7.32-7.42) L* 07/27/17 17:59 Potassium 3.1 mEq/L (3.5-5.1) L 08/01/17 03:45 Carbon Dioxide 34 mEq/L (23-29) H 08/01/17 03:45 BUN 37 mg/dL (8-23) H 08/01/17 03:45 Creatinine 1.63 mg/dL (0.60-1.20) H 08/01/17 03:45 Est GFR ( Amer) 37 (> 60) L 08/01/17 03:45 Est GFR (Non-Af Amer) 31 (> 60) L 08/01/17 03:45 Glucose 141 mg/dL (70-105) H 08/01/17 03:45 POC Glucose 147 mg/dL (70-99) H 08/01/17 05:12 Hemoglobin A1c 9.2 % (-5.6) H 07/23/17 05:09 Calculated Osmolality 309 (280-300) H 08/01/17 03:45 Calcium 12.3 mg/dL (8.6-10.3) H 08/01/17 03:45 Magnesium 1.5 mg/dL (1.6-2.6) L 08/01/17 03:45 Direct Bilirubin 0.4 mg/dL (0.0-0.2) H 07/28/17 03:33 Alkaline Phosphatase 319 Units/L (34-104) H 07/28/17 03:33 C-Reactive Protein 237 mg/L (Less than 10) H 07/28/17 15:35 Serum Total Protein 5.5 g/dL (6.4-8.9) L 07/28/17 03:33 Globulin 1.7 g/dL (2.4-3.5) L 07/28/17 03:33 Amylase < 10 Units/L (29-103) L 07/28/17 15:35 Procalcitonin 2.81 ng/mL (<=0.10) H 07/28/17 15:35 Urine Clarity Cloudy (Clear) A 07/29/17 01:26 Urine Protein 100 mg/dL (Neg-Trace) H 07/29/17 01:26 Urine Blood Moderate (Negative) H 07/29/17 01:26 Ur Leukocyte Esterase Large (Negative) H 07/29/17 01:26 Urine Microscopic RBC 5-15 per hpf (0-3) H 07/29/17 01:26 Urine Microscopic WBC TNTC per hpf (0-3) H 07/29/17 01:26 - Microbiology Findings Microbiology Findings: Microbiology, Last 48 Hours 07/29/17 01:26 Urine Culture - Final Urine,[place] Pseudomonas aeruginosa Vanc. Resistant Enterococcus 07/29/17 12:06 Blood Culture - Preliminary Peripheral Venipuncture No growth. 07/29/17 11:03 Blood Culture - Preliminary Peripheral Venipuncture No growth. 07/27/17 15:55 Blood Culture - Preliminary Peripheral Venipuncture No growth. 07/27/17 17:32 Blood Culture - Preliminary Peripheral Venipuncture No growth. - Clinical Findings Intake & Output: Intake & Output 07/31/17 08/01/17 08/01/17 23:59 07:59 15:59 Intake Total 1720.5 / 1720.5 6812.18 / 6812.18 186.4 / 186.4 Output Total 2019 / 1959 581 / 581 Balance -299.5 / -299.5 4852.18 / 4852.18 -394.6 / -394.6 - Attending Attestation I examined this patient and my medical decision-making was reviewed with the Resident Physician. I agree with the documented findings, disposition and treatment plan as described except to the extent set forth below. Patient seen and examined. Labs, radiology, chart personally reviewed. Agree with resident's history and physical, assessment, plan with following comments: REFLESHER: Patient follows simple commands, she is lethargic and somnolent Pulmonary: Acceptable oxygenation and ventilation. Noninvasive ventilation as needed Cardiovascular: Blood pressure relatively stable GI: Nutrition per dietary and GI prophylaxis per routine Heme: DVT prophylaxis per routine ID: Continue antibiotics and plan to de-escalation Renal; urine out put and renal funtion reviewed. Discussed with nephrology and because of the poor prognosis will focus mainly on comfort care. Endorcine: blood glucose is monitored Lines: all lines checked and no evidence of infections Skin: skin care to prevent pressure ulcers per nursing routine care Poor prognosis and family is aware of that.
[2017-08-01] MEDS: Levothyroxine Sodium 100 MCG VIAL IVP SCH (08:26)
[2017-08-01] MEDS: Insulin DETEMIR 100 UNIT/ML X5UNITS SQ SCH ×2 (08:26→21:04)
--- NOTE | 2017-08-01 10:20 | Nephrology Progress Note ---
Date of Encounter: 08/01/17 Time of Encounter: 08:15 - Assessment and Plan (1) Acute kidney injury Current Visit: Yes Status: Acute Oliguric ELAINE requiring CRRT and remains on CVVH as started earlier this week. UF has been minimal d/t her hypotension, but would not increase the UF rate. I reviewed the notes and see that her goals of care are to not escalate but de- escalate, such that when the Rekha filter clots next, then to not replace and not restart CRRT. I agree. She has been on Citrate/Calcium gtt for regional anticoagulation but her ACT has become harder and harder to control, and so I will stop the Citrate/Calcium gtt. Will follow with you this weekend. (2) Acute respiratory failure Current Visit: Yes Status: Acute Qualifiers: Respiratory failure complication: hypoxia and hypercapnia Qualified Code(s) : J96.01 - Acute respiratory failure with hypoxia; J96.02 - Acute respiratory failure with hypercapnia (3) Altered mental status Current Visit: Yes Status: Acute Qualifiers: Altered mental status type: delirium Qualified Code(s): R41.0 - Disorientation, unspecified (4) CKD (chronic kidney disease) stage 3, GFR 30-59 ml/min Current Visit: Yes Status: Acute (5) Hypotension Current Visit: Yes Status: Acute Qualifiers: Hypotension type: unspecified hypotension type Qualified Code(s): I95.9 - Hypotension, unspecified Subjective Principal diagnosis: acute on chronic kidney disease Interval history: Pt was s/e and I discussed her care while on Rekha with the ICU team. The pt was unable to verbalize thus limiting the subjective hx. Objective - Vital Signs Vital signs: Vital Signs Temp Pulse Resp BP Pulse Ox 08/01/17 09:00 62 13 88/00 100 08/01/17 08:00 96.3 F L 65 16 67/60 100 08/01/17 07:00 68 12 101/70 100 08/01/17 06:00 70 11 108/49 100 08/01/17 04:59 66 8 115/60 100 08/01/17 04:00 97.2 F L 67 10 108/71 100 08/01/17 03:38 75 08/01/17 03:00 67 12 127/65 100 08/01/17 02:00 63 12 86/58 100 08/01/17 00:53 71 12 85/47 100 08/01/17 00:00 97.6 F 72 8 98/41 100 07/31/17 23:00 69 12 91/55 100 07/31/17 22:00 62 12 89/49 100 07/31/17 20:59 64 8 100/67 100 07/31/17 20:00 96.8 F L 67 11 98/40 100 07/31/17 19:52 71 07/31/17 19:00 67 14 112/66 100 07/31/17 18:00 71 16 113/58 100 07/31/17 17:00 70 16 103/33 100 07/31/17 16:00 96.8 F L 68 15 118/78 100 07/31/17 15:00 73 16 122/65 100 07/31/17 14:00 82 16 121/80 100 07/31/17 13:00 79 16 123/51 100 07/31/17 12:00 96.3 F L 83 14 107/69 100 07/31/17 11:00 82 14 120/51 100 Intake and Output 07/31/17 08/01/17 08/01/17 23:59 07:59 15:59 Intake Total 1720.5 / 1720.5 6812.18 / 6812.18 186.4 / 186.4 Output Total 2019 / 1959 581 / 581 Balance -299.5 / -299.5 4852.18 / 4852.18 -394.6 / -394.6 Intake: IV Fluids 1720.5 / 1720.5 6812.18 / 6812.18 186.4 / 186.4 Calcium Chloride 4,000 MG In 0. 1439 / 1439 1561 / 1561 9 % Sodium Chloride 1,000 ML @ 40 mls/hr CRRT CONT AMANDA Rx#: [id number] PRECEDEX Premix 400 mcg In 100 83.5 / 83.5 64.2 / 64.2 ml @ 0.3 MCG/KG/HR 9.93 mls/hr IVC .Q10H5M PRN Rx#:[id number] FentaNYL (PF) 1,000 MCG In 0.9 101.1 / 101.1 30.3 / 30.3 7.9 / 7.9 % Sodium Chloride 80 ML @ 12.5 MCG/HR 1.25 mls/hr IVC CONT AMANDA Rx#:[id number] Levophed 4 MG In Dextrose 5% 76.9 / 76.9 63.4 / 63.4 250 ML @ 5 MCG/MIN 19.05 mls/hr IVC CONT AMANDA Rx#:[id number] Maxipime 2,000 MG In Water for 20 / 20 20 / 20 inj. (sterile) 20 ML @ 300 mls/ hr IVP Q12HR AMANDA Rx#:[id number] Calcium Chloride 178 MG In 0 / 0 5001.78 / 5001.78 PrismaSATE BGK 2/0 5,000 ML @ 714.54 mls/hr IVPB .Q7H AMANDA Rx# :[id number] Magnesium Sulfate Premix 2gm/ 50.0 / 50.0 50mL 2 gm In 50 ml @ 50 mls/hr IVPB Q6H PRN Rx#:[id number] Potassium Chloride 20 mEq/100 21.5 / 21.5 178.5 / 178.5 mL 40 meq In 200 ml @ 100 mls/ hr IVPB Q1H PRN Rx#:[id number] Oral 0 / 0 0 / 0 0 / 0 Output: Rekha 2019 / 2019 1957 / 1957 581 / 581 Catheter 0 / 0 0 / 0 0 / 0 Urethral (Ellis) 0 / 0 0 / 0 Other: Blood Glucose* 154 - General Appearance General appearance: Present: obese, chronically ill, fatigue, frail EENT: Present: ATNC, PERRL, mucous membranes moist Neck: Present: supple Respiratory: Present: course breath sounds Cardiology: Present: edema (wearing wraps but trending better in terms of edema (trace) b/l), regular rate, regular rhythm, normal S1, normal S2 Dialysis Vascular Access: Venous Catheter (RIJ temporary HD catheter without surrounding erythema) Gastrointestinal: Present: normoactive bowel sounds, no tenderness, no guarding , obese Integumentary: Present: ecchymotic Neurologic: Present: confused, disoriented Musculoskeletal: Present: no cyanosis - Lab 08/01/17 03:45 08/01/17 03:45 Most recent lab results ABG pH 7.23 pH Units (7.32-7.45) L 07/27/17 11:08 ABG pCO2 68 mmHg (35-45) H 07/27/17 11:08 ABG pO2 59 mmHg (85-104) L 07/27/17 11:08 ABG HCO3 28 mEq/L (21-27) H 07/27/17 11:08 ABG O2 Saturation 84 % (95-98) L 07/27/17 11:08 Calcium 12.3 mg/dL (8.6-10.3) H 08/01/17 03:45 Phosphorus 4.5 mg/dL (2.7-4.5) 07/28/17 03:33 Magnesium 1.5 mg/dL (1.6-2.6) L 08/01/17 03:45 - VTE Documentation of Mechanical Device: Graduated compression elastic hosiery Consult Discharge Plan - Plan Referrals: Yaa Sanderson, BILLY [Primary Care Provider] -
--- NOTE | 2017-08-01 11:27 | Event Note ---
Date of Encounter: 08/01/17 Time of Encounter: 11:20 Spoke with daughter Natalie this am via telephone and updated on current clinical condition - she is aware vasopressor is off and she had hypotensive episode this am, however, resolved at this time. She is also aware of elevated ACT with CRRT and that citrate has to be discontinued, that set may potentially clot , and if so, will not be restarted. Daughter expressed she is overwhelmed, trying to get pt sister moved to another facility in [place], and caring for her mother's house, trying to get it ready to sell. Provided emotional support. Will continue to follow clinical course over the weekend.
[2017-08-01 13:19] LABS: Magnesium 1.7 mg/dL (1.6-2.6); Potassium 3.5 mEq/L (3.5-5.1)
[2017-08-01] MEDS: DAPTOmycin 800 MG in 0.9 % Sodium Chloride 100 ML IVPB SCH (14:13)
[2017-08-01] MEDS: FentaNYL (PF) 1,000 MCG in 0.9 % Sodium Chloride 80 ML IVC SCH ×2 (19:06→23:01)
[2017-08-01 20:03] LABS: Potassium 3.9 mEq/L (3.5-5.1)
[2017-08-02] MEDS: Insulin LISPRO 300 UNITS/3 ML VIAL SQ SCH (00:09)
[2017-08-02] MEDS: Dexmedetomidine HCl 400 MCG/100 ML MLS IVC PRN (02:38)
[2017-08-02 03:01] LABS: Basophils % 0.3 %; Red Cell Distribution Width 15.9 % (11.5-14.5)
[2017-08-02 03:02] LABS: Eosinophils # 0.1 K/mcL (0.0-0.6); Hematocrit 29.8 % (35.3-44.9); Hemoglobin 8.4 g/dL (11.5-15.4); Immature Granulocytes % 3.4 % (0-4); Lymphocytes # 0.8 K/mcL (0.6-4.6); Lymphocytes % 10.1 %; Mean Corpuscular HGB Conc 28.2 g/dL (31.6-35.5); Mean Corpuscular Hemoglobin 28.7 pg (28.0-33.3); Mean Corpuscular Volume 101.7 fL (83.0-100.0); Mean Platelet Volume 13.2 fL (9.4-12.4); Monocytes # 0.6 K/mcL (0.0-1.3); Monocytes % 7.7 %; Neutrophils # 6.1 K/mcL (1.6-8.9); Nucleated Red Blood Cells 2.3 /100 WBC (0); Red Blood Count 2.93 M/mcL (3.82-4.97); Segmented Neutrophils % 77.5 %
[2017-08-02 03:05] LABS: Platelet Count 43 K/mcL (140-400)
[2017-08-02 03:20] LABS: Calcium 10.3 mg/dL (8.6-10.3); Magnesium 1.9 mg/dL (1.6-2.6); Potassium 3.9 mEq/L (3.5-5.1)
[2017-08-02 03:26] LABS: Hypochromasia Present (Not Present); Platelet Estimate Decreased (Normal)
[2017-08-02] MEDS: Potassium Chloride 40 MEQ/200 ML BAG IVPB PRN (03:38)
[2017-08-02] MEDS: *HR* Heparin 5,000 UNIT/ML VIAL SQ SCH (03:47)
[2017-08-02 06:06] VITALS: BP 62/40
--- NOTE | 2017-08-02 07:39 | Death Note ---
<Marion Bolaños - Last Filed: 08/02/17 07:39> Discharge Sum: Summary - Date and Time Date of admission: 07/22/17 17:46 - Additional Data Attending physician: Alex Betancourt MD Discharge Sum: Prov - Provider Primary care physician: Yaa Sanderson CNP Consults: 07/22/17 20:18 Consult to Surgery [CONS] Routine Consulting Provider: Surgery [facility] Reason for Consult: diabetic foot wound Call Completed: Yes 07/22/17 20:19 Consult to Nephrology [CONS] Routine Consulting Provider: Kidney [facility]/ETELVINA/FARZAD/MILKA Reason for Consult: known to you. Lc discussed case with you Call Completed: No 07/22/17 20:22 Consult to Wound Care [CONS] Routine Reason for Consult: ulcer, bullae Time Notified: 15:00 Call Completed: Yes 07/24/17 10:13 Consult to Timber Cutter [CONS] Routine Reason for SW Consult: ECF return 07/26/17 15:53 Consult to Interventional Radiology [CONS] Routine Consulting Provider: Radiology Interventional Col[facility] Reason for Consult: temporary dialysis catheter Call Completed: No 07/27/17 10:00 Consult to Dialysis [CONS] ONCE 07/27/17 10:55 Consult to Timber Cutter [CONS] Routine Reason for SW Consult: Please set up chair time for [place]. Pt resides at [facility] in [place]. New HD start. Thanks 07/27/17 14:50 Consult to Pulmonology [CONS] Routine Consulting Provider: Pulm [facility] [place] Reason for Consult: Acute resp failure, B/L pulmonary edema, worsening CKD, hypotension Call Completed: Yes 07/27/17 16:02 Consult to Infectious Diseases [CONS] Routine Consulting Provider: Infectious Disease [place] Reason for Consult: cellulitis Time Notified: 16:16 Call Completed: Yes 07/28/17 08:52 Consult to Palliative Care [CONS] Routine Comment: Consulting Provider: Palliative Care [facility] Reason for Consult: discuss goals of care Time Notified: 09:00 Call Completed: Yes 07/30/17 11:04 Consult to Surgery [CONS] Routine Consulting Provider: Surgery [facility] Reason for Consult: eval for possible PEG placement Time Notified: 11:08 Call Completed: Yes <Ceci Cisneros - Last Filed: 08/03/17 09:20> Discharge Sum: Summary - Date and Time Date of admission: 07/22/17 17:46 Patient with multiple medical problems and and prolonged hospitalization with no significant response to the treatment and multiple discussion with power of furnace hand which is her daughter was done and she finally agreed for comfort care. As soon as supportive care mainly Rekha was stopped due to ineffectiveness her condition deteriorated and then she . Family was notified. - Additional Data Attending physician: Alex Betancourt MD Discharge Sum: Diag - PCOD Probable Cause of : Acute renal failure Discharge Sum: Prov - Provider Primary care physician: Yaa Sanderson CNP Consults: 07/22/17 20:18 Consult to Surgery [CONS] Routine Consulting Provider: Surgery [facility] Reason for Consult: diabetic foot wound Call Completed: Yes 07/22/17 20:19 Consult to Nephrology [CONS] Routine Consulting Provider: Kidney [place]/ETELVINA/FARZAD/MILKA Reason for Consult: known to you. Lc discussed case with you Call Completed: No 07/22/17 20:22 Consult to Wound Care [CONS] Routine Reason for Consult: ulcer, bullae Time Notified: 15:00 Call Completed: Yes 07/24/17 10:13 Consult to Timber Cutter [CONS] Routine Reason for SW Consult: ECF return 07/26/17 15:53 Consult to Interventional Radiology [CONS] Routine Consulting Provider: Radiology Interventional Col[facility] Reason for Consult: temporary dialysis catheter Call Completed: No 07/27/17 10:00 Consult to Dialysis [CONS] ONCE 07/27/17 10:55 Consult to Timber Cutter [CONS] Routine Reason for SW Consult: Please set up chair time for [place]. Pt resides at [facility] in [place]. New HD start. Thanks 07/27/17 14:50 Consult to Pulmonology [CONS] Routine Consulting Provider: Pulm Crit [facility] [place] Reason for Consult: Acute resp failure, B/L pulmonary edema, worsening CKD, hypotension Call Completed: Yes 07/27/17 16:02 Consult to Infectious Diseases [CONS] Routine Consulting Provider: Infectious Disease [facility] Reason for Consult: cellulitis Time Notified: 16:16 Call Completed: Yes 07/28/17 08:52 Consult to Palliative Care [CONS] Routine Comment: Consulting Provider: Palliative Care [place] Reason for Consult: discuss goals of care Time Notified: 09:00 Call Completed: Yes 07/30/17 11:04 Consult to Surgery [CONS] Routine Consulting Provider: Surgery [facility] Reason for Consult: eval for possible PEG placement Time Notified: 11:08 Call Completed: Yes - Attending Attestation I examined this patient and my medical decision-making was reviewed with the Resident Physician. I agree with the documented findings, disposition and treatment plan as described except to the extent set forth below. Patient seen and examined. Labs, radiology, chart personally reviewed. Agree with resident's history and physical, assessment, plan with following comments: The patient's condition was deteriorating and she this morning and they have met with the family.
== END 2017-08-02 09:15 | disposition expired | DRG 682 ==
LOC: SUATTDRO 17:46 → 2ANU 17:46 → ICNU 07-27 14:31
PROVIDERS: ADMIT Internal Medicine Hematology & Oncology; ATTEND Internal Medicine